=== PATIENT | female | born 1980 | race African-American/Black ===

== ENCOUNTER 2017-12-26 22:44 | Observation (INO) | payer BC ==
[2017-12-27] MEDS ORDERED: Ibuprofen 800 MG TAB ONE (01:20)
[2017-12-27] MEDS ORDERED: Enoxaparin Sodium 100 MG/ML SYRINGE ONE (02:48)
[2017-12-27] MEDS ORDERED: Enoxaparin Sodium 30 MG/0.3 ML SYRINGE ONE ×2 (02:48→02:51)
[2017-12-27] MEDS ORDERED: Bisacodyl 5 MG TAB PO PRN (05:00)
[2017-12-27] MEDS ORDERED: traMADol HCl 50 MG TAB PO PRN (05:00)
[2017-12-27] MEDS ORDERED: Loratadine 10 MG TAB PO PRN (05:00)
[2017-12-27] MEDS ORDERED: Benzonatate 100 MG CAP PO PRN (05:00)
[2017-12-27] MEDS ORDERED: Senokot 8.6 MG TAB PO PRN (05:00)
[2017-12-27] MEDS ORDERED: hydrALAZINE 20 MG/ML VIAL SLOW IVP PRN (05:00)
[2017-12-27] MEDS ORDERED: cloNIDine 0.1 MG TAB PO PRN (05:00)
[2017-12-27] MEDS ORDERED: Calcium Carbonate 500 MG ChewTAB PO PRN (05:00)
[2017-12-27] MEDS ORDERED: Diabetic Tussin 200 MG/10 ML UDCUP PO PRN (05:00)
[2017-12-27] MEDS ORDERED: Nitroglycerin 0.4 MG TAB (25 Tab Bottle) SL PRN (05:00)
[2017-12-27] MEDS ORDERED: Ondansetron HCl/PF 4 MG/2 ML Vial IVP PRN (05:00)
[2017-12-27] MEDS ORDERED: Mag-Al 1200 mg/1200 mg/30 ML UDCUP PO PRN (05:00)
[2017-12-27 05:09] VITALS: BMI 37.1
[2017-12-27 05:10] LABS: Troponin I Less than 0.010 ng/mL (< 0.028)
[2017-12-27 05:41] LABS: BHCG - Serum Negative (NEGATIVE); Pregs Control Background? CLEAR/WHITE (CLR/WHITE); Pregs Control Bar Appear? YES (CONTROL BAR)
--- NOTE | 2017-12-27 05:54 | HP ---
DATE OF ADMISSION: 12/27/2017 CHIEF COMPLAINT: Chest pain. HISTORY OF PRESENT ILLNESS: Ms. Lamb is a pleasant 37-year-old female without any significant pas t medical history who presented to the emergency room with the above-mentioned complaint. History is mainly obtained by the patient herself and electronical medical records have been reviewed. According to Ms. Lamb, she started to have chest pain while she was resting at 2:30 yesterday afte rnoon. She describes it as a stabbing sensation located in the center of the sternum and a little bi t to the left. It was not associated with any diaphoresis or shortness of breath. She did have one episode of vomiting. The pain was nonradiating and was 10/10 in intensity. She cannot think of any exacerbating or relieving factors. It spontaneously went away in the ER. She initially presented to outside ER in [place], where she was given aspirin. She was found to have an elevated D-dimer, for which a CT angio was performed, but unfortunately it w as a suboptimal study. It did rule out pulmonary embolism in the big blood vessels, but small vessel s were not opacified well enough. She was admitted to our facility for further workup and to rule ou t PE. Her cardiac enzymes were unremarkable. She did have leukocytosis with the left shift and in [facility] emergency room, she was found to have fever of 103.1. Chest x-ray done in the [place] [facility] was negative for any infiltrate. Urinalysis was unremarkable. After discussion with the admitting ER physician in our facility: It was decided that she will recei ve 1 dose of therapeutic Lovenox until pulmonary embolism can be safely ruled out. She is to undergo a lower extremity ultrasound to rule out DVT for completeness of evaluation. She is now being admit viktoria for further workup for her chest pain. She does report that it does hurt whenever she moves. PAST MEDICAL HISTORY: Sickle cell trait. PAST SURGICAL HISTORY: Hysterectomy. PSYCHIATRIC HISTORY: No anxiety, no depression. 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 No history of drug, tobacco, or alcohol abuse. FAMILY HISTORY: Significant for hypertension and dyslipidemia, and some sort of heart disease and di abetes in her father. REVIEW OF SYSTEMS: A 12-point review of systems is done and is negative except for those mentioned i n the history and physical. The following complete review of systems was negative, unless otherwise mentioned in the HPI or below: Constitutional: Weight loss or gain, ability to conduct usual activi ties. Skin: Rash, itching. Eyes: Double vision, pain. ENT/Mouth: Nose bleeding, neck stiffness, pain, tenderness. Cardiovascular: Palpitations, dyspnea on exertion, orthopnea. Respiratory: Vida rtness of breath, wheezing, cough, hemoptysis, fever or night sweats. Gastrointestinal: Poor appeti te, abdominal pain, heartburn, nausea, vomiting, constipation, or diarrhea. Genitourinary: Urgency, frequency, dysuria, nocturia. Musculoskeletal: Pain, swelling. Neurologic/Psychiatric: Anxiety, depression. Allergy/Immunologic: Skin rash, bleeding tendency. LABORATORY DATA: CBC shows WBCs 12.7 with 90% neutrophils, hemoglobin 11.1, hematocrit 32.6. D-dime r 1.18. Serum chemistry shows blood sugar of 109, otherwise unremarkable. Total bilirubin is elevat ed to 2.1 with normal LFTs. Troponin less than 0.010. Urinalysis unremarkable. Chest x-ray by elise brenner has no evidence to suggest pulmonary edema, effusion, or infiltrate. CT angio was limited stud y. No overt pulmonary embolism seen. Splenomegaly and probable mild hepatomegaly seen. PHYSICAL EXAMINATION: VITAL SIGNS: Upon presentation, blood pressure 110/66, pulse of 103, respirations 16, saturating 99% on room air, temperature 103.1. GENERAL: No acute distress, awake, alert, oriented x3. She is lying comfortably in bed. HEENT: Mucous membrane is moist and pink. No oropharyngeal exudate or erythema. Head is normocepha lic, atraumatic. Pupils equal, reactive to light and accommodation. Extraocular movement intact. NECK: Supple without any lymphadenopathy, JVD, or bruit. CHEST: Clear to auscultation without any wheezing, rales, or rhonchi. She is somewhat tender to pal pation over the sternum and the left anterior chest. ABDOMEN: Obese, soft, nontender, nondistended with positive bowel sounds. She has no right upper qu adrant tenderness. EXTREMITIES: Free of any cyanosis, clubbing, or edema. NEUROLOGIC: Nonfocal. SKIN: Free of any rashes or bruises. I feel warm and dry to touch. IMPRESSION AND PLAN: 1. Chest pain. The etiology is unclear. She does have risk factors for pulmonary embolism. She is mostly sedentary at her job and at her home. At this time, she has received 1 dose of Lovenox in th e emergency room. Her CT angio was suboptimal, but did not show any pulmonary embolism. We will obt ain lower extremity ultrasound to rule out any deep venous thrombosis as well. If the lower extremit y ultrasound is negative: We will start the workup for cardiac causes of chest pain and obtain a nuc lear medicine stress test given her family history. Also given the fact that she has tenderness to p alpation: Musculoskeletal cause cannot be ruled out. We will continue to trend serial cardiac enzym es, provide her with a daily aspirin and monitor her on telemetry unit. 2. Elevated bilirubin, given the patient's presentation with fever, leukocytosis, and elevated bilir ubin: We will get a right upper quadrant ultrasound to rule out cholecystitis. No indication for an tibiotic at this time until necessary. 3. Systemic inflammatory response syndrome. The patient has fever and leukocytosis with left shift without a clear source of infection. A workup was initiated above. We will start her on gentle IV f luid hydration. Blood cultures have been obtained and we will follow the results as well as the resu lts of the right upper quadrant ultrasound. 4. Morbid opacity. 5. Obtain a stat serum test. 6. Repeat labs in the morning and deep venous thrombosis and gastrointestinal prophylaxes with seque ntial compression devices and Pepcid in case this is a symptom of gastroesophageal reflux disease. DISPOSITION: Ms. Lamb is currently being admitted for chest pain workup. Further management will depend upon her clinical course. We recommend getting nuclear medicine stress test if the workup fo r pulmonary embolism/DVT and cholecystitis is negative as a possible reason for her presentation with chest pain.
[2017-12-27 05:57] LABS: Anion Gap 10 mmol/L (10-20); BUN (Urea Nitrogen) 11 mg/dL (7.0-18.7); Calc. Creatinine Clearance 174 mL/min (70-130); Calcium 7.5 mg/dL (7.8-10.44); Carbon Dioxide 21 mmol/L (22-29); Chloride 108 mmol/L (98-107); Estimated GFR-MDRD Greater than 90; Glucose 90 mg/dL (70-105); Potassium 3.4 mmol/L (3.5-5.1); Sodium 136 mmol/L (136-145)
[2017-12-27 06:07] LABS: Troponin I Less than 0.010 ng/mL (< 0.028)
[2017-12-27] MEDS: Sodium Chloride 0.9% 1,000 ML IV SCH ×3 (06:08→22:58)
[2017-12-27 06:45] LABS: #Lymphocytes 0.8 thou/uL (1.20-3.40); #Monocytes 0.3 thou/uL (0.11-0.59); #Neutrophils 5.2 thou/uL (1.40-6.50); %Basophils 0.2 % (0.0-1.0); %Eosinophils 0.2 % (0.0-10.0); %Monocytes 5.1 % (0.0-10.0); %Neutrophils 81.4 % (42.0-75.0); Hemoglobin 9.1 g/dL (12.0-16.0); Mean Corpuscular HGB CONC 34.8 g/dL (32.0-36.0); Mean Corpuscular Hemoglobin 26.9 pg (27.0-31.0); Mean Corpuscular Volume 77.5 fl (81.0-99.0); Mean Platelet Volume 10.8 fL (7.4-10.4); Platelet Count 102 thou/uL (130-400); Red Blood Cell (RBC) Count 3.37 mill/uL (4.20-5.40); White Blood Cell (WBC) Count 6.4 thou/uL (4.8-10.8)
[2017-12-27 07:33] LABS: MDiff Complete? YES; Microcytosis SLIGHT = 6-15 cells (100X) (0-5/hpf); PLT Morphology Comment Appears Decreased; Polychromasia MODERATE = 3-4 cells (100X) (0-2/hpf)
--- NOTE | 2017-12-27 08:56 | ULT ---
RIGHT UPPER QUADRANT ULTRASOUND: DATE: 12/27/17. HISTORY: Fever, elevated bilirubin. FINDINGS: Visualized portions of the pancreas, visualized portions of the IVC, liver, and right kidney demonstr ate a normal sonographic appearance. The right kidney measures 11.9 cm in length. There is shadowing extending from the gallbladder fossa. This may be related to a contracted gallbla dder filled with gallbladder calculi. The common duct measures 0.4 cm in diameter which is within no rmal limits. Pulp Beater noted negative sonographic Jenkins's sign. IMPRESSION: Shadowing from the region of the gallbladder fossa which probably represents a contracted gallbladder filled with multiple gallbladder calculi in the absence of a history of prior cholecystectomy. POS: BALTAZAR
--- NOTE | 2017-12-27 08:57 | ULT ---
BILATERAL LOWER EXTREMITY VENOUS DOPPLER WITH SPECTRAL ANALYSIS AND COLOR FLOW EVALUATION: Date: 12/27/17 HISTORY: Shortness of breath and elevated D-Dimer. TECHNIQUE: Velázquez scale, color flow, Doppler evaluation, and spectral analysis of the bilateral lower extremity ve nous structures is performed with 2D imaging. The bilateral lower extremity common femoral, superfici al femoral, popliteal, posterior tibial, most proximal greater saphenous, and profunda femoral veins are imaged. FINDINGS: There is normal lumen compressibility, flow, and augmentation in the visualized deep venous structure s of the bilateral lower extremities. IMPRESSION: No evidence of a deep venous thrombosis involving the visualized deep venous structures of bilateral lower extremities. POS: GISELA
[2017-12-27] MEDS: Aspirin 81 mg Enteric Coated Tablet PO SCH (09:46)
[2017-12-27] MEDS: Famotidine 20 MG TAB PO SCH ×2 (09:46→20:59)
[2017-12-27] MEDS: Acetaminophen 325 MG TAB PO PRN ×3 (09:47→20:59)
--- NOTE | 2017-12-27 15:45 | NM ---
MYOCARDIAL PERFUSION SCAN: A stress-only exam was performed. INDICATION: Chest pain. TECHNIQUE: The patient was stressed according to adenosine protocol. The patient obtained 54% of maximal age-pr edicted heart rate. The left ventricle was imaged with SPECT imaging. CT attenuation images were obtained. FINDINGS: The nonattenuation images show normal activity throughout the left ventricle. Wall motion appears normal. The ejection fraction is recorded at 64%. IMPRESSION: Negative stress-only myocardial perfusion exam. POS: BALTAZAR
--- NOTE | 2017-12-27 19:04 | CON ---
DATE OF CONSULTATION: 12/27/2017 CONSULTS: From Dr. Gallagher, [facility]. REASON FOR CONSULTATION: Cholecystitis. HISTORY OF PRESENT ILLNESS: This is a 37-year-old -[place] female who is overweight, who pre sents with a history of substernal sharp chest pain, admitted to the Hospitalist Service and has been ruled out for any cardiac abnormality. Ultrasound was done due to elevation of her liver function t ests. She was found to have a contracted gallbladder with gallstones, normal common bile duct. Bili zhu just over 2. The other liver function tests were normal. She denies history of jaundice, gall stones, or pancreatitis. Pain described as sharp, substernal. She does have a cheeseburger for dinn er and made it worse. She has some pain in her subscapular region in the right upper back as well. Never had these symptoms before. Previous hysterectomy was her only previous surgery. PAST MEDICAL HISTORY: She denies. PAST SURGICAL HISTORY: Denies. MEDICINES TAKEN DAILY: None. ALLERGIES: PENICILLIN. 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 No history of alcohol or drugs. REVIEW OF SYSTEMS: Otherwise, negative unless described above. FAMILY HISTORY: Noncontributory for GI malignancy or anesthetic related complications. PHYSICAL EXAMINATION: VITAL SIGNS: Pulse 86, respirations 18, temperature 99.2, blood pressure 122/63. GENERAL: Alert, oriented, no acute distress. HEENT: Sclerae are anicteric. Oropharynx clear. NECK: No lymphadenopathy. CHEST: Clear. HEART: Regular rate and rhythm. ABDOMEN: Soft, tender in the right upper quadrant with localized guarding, but no rebound, no abdomi nal or inguinal hernias. EXTREMITIES: No ischemia or edema to extremities. LABORATORY DATA: On admission, her bilirubin was 2, AST, ALT are 17 and 16, lipase was normal at 25. She is slightly anemic with a hemoglobin of 9.1, platelet count is 102. White cell count is 6.4. Ultrasound shows contracted gallbladder with gallstones, gallbladder, common duct 0.4 cm. ASSESSMENT: Likely cholecystitis with elevated liver function test. PLAN: Laparoscopic cholecystectomy with intraoperative cholangiogram. Risks, benefits, alternatives discussed. We will do this tomorrow.
[2017-12-27] MEDS: metroNIDAZOLE 500 MG in Premix Bag 1 BAG IVPB SCH (22:55)
[2017-12-28 05:42] LABS: ALT (SGPT) 37 U/L (8-55); AST (SGOT) 31 U/L (5-34); Albumin 3.2 g/dL (3.5-5.0); Alkaline Phosphatase 55 U/L (40-150); Anion Gap 9 mmol/L (10-20); BUN (Urea Nitrogen) 7 mg/dL (7.0-18.7); Bilirubin, Total 1.7 mg/dL (0.2-1.2); Calc. Creatinine Clearance 204 mL/min (70-130); Calcium 7.4 mg/dL (7.8-10.44); Carbon Dioxide 21 mmol/L (22-29); Chloride 110 mmol/L (98-107); Estimated GFR-MDRD Greater than 90; Globulin 2.1 g/dL (2.4-3.5); Glucose 92 mg/dL (70-105); Lipase 28 U/L (8-78); Potassium 3.4 mmol/L (3.5-5.1); Protein, Total 5.3 g/dL (6.0-8.3); Sodium 137 mmol/L (136-145)
[2017-12-28 05:48] LABS: #Eosinphils 0.1 thou/uL (0.0-0.7); #Lymphocytes 1.1 thou/uL (1.20-3.40); #Monocytes 0.4 thou/uL (0.11-0.59); #Neutrophils 3.5 thou/uL (1.40-6.50); %Eosinophils 1.1 % (0.0-10.0); %Lymphocytes 21.2 % (21.0-51.0); %Monocytes 7.6 % (0.0-10.0); %Neutrophils 70.1 % (42.0-75.0); Anisocytosis SLIGHT = 6-15 cells (100X) (0-5/hpf); Hemoglobin 7.8 g/dL (12.0-16.0); MDiff Complete? YES; Mean Corpuscular HGB CONC 35.7 g/dL (32.0-36.0); Mean Corpuscular Hemoglobin 27.5 pg (27.0-31.0); Mean Platelet Volume 10.7 fL (7.4-10.4); Microcytosis SLIGHT = 6-15 cells (100X) (0-5/hpf); PLT Morphology Comment Appears Decreased; Platelet Count 99 thou/uL (130-400); RBC Distribution Width 21.2 % (11.5-14.5); Red Blood Cell (RBC) Count 2.85 mill/uL (4.20-5.40); White Blood Cell (WBC) Count 4.9 thou/uL (4.8-10.8)
[2017-12-28] MEDS: metroNIDAZOLE 500 MG in Premix Bag 1 BAG IVPB SCH ×2 (06:24→14:20)
[2017-12-28] MEDS: Aspirin 81 mg Enteric Coated Tablet PO SCH (08:29)
[2017-12-28] MEDS: Famotidine 20 MG TAB PO SCH ×2 (08:29→23:01)
[2017-12-28] MEDS ORDERED: Bupivacaine/Epinephrine 0.25% 30 ML VIAL ONE (10:00)
[2017-12-28] MEDS ORDERED: Iothalamate Meglumine 60% 50 ML VIAL FS ONE (10:13)
[2017-12-28] MEDS ORDERED: Midazolam HCl 2 mg/2 ml Vial ONE (10:36)
[2017-12-28] MEDS ORDERED: Famotidine/PF 20 mg/2ml Vial ONE (10:36)
[2017-12-28] MEDS ORDERED: Fentanyl 100 MCG/2 ML VIAL ONE ×2 (10:36→11:43)
[2017-12-28] MEDS ORDERED: SUGAMMADEX SODIUM 200 MG/2 ML VIAL ONE (11:31)
[2017-12-28] MEDS ORDERED: Promethazine HCl 25 MG/ML VIAL ONE (11:43)
[2017-12-28] MEDS ORDERED: Promethazine HCl 25 MG/ML VIAL IM PRN (12:16)
[2017-12-28] MEDS ORDERED: Promethazine HCl 25 MG/ML VIAL SLOW IVP PRN (12:16)
[2017-12-28] MEDS ORDERED: Ondansetron HCl/PF 4 MG/2 ML Vial IVP PRN (12:16)
--- NOTE | 2017-12-28 12:40 | RAD ---
INTRAOPERATIVE CHOLANGIOGRAM: HISTORY: Laparoscopic cholecystogram. FINDINGS: A single intraoperative cholangiogram is obtained. Catheterization and injection of the cystic duct is performed. There is contrast seen in the common bile duct and in the common hepatic ducts. Some contrast is seen extending into the duodenum. There does appear to be a filling defect in one of the right intrahepatic bile ducts. No definite evidence of a more distal lesion is seen. IMPRESSION: 1. Possible right hepatic duct stone or filling defect. 2. No other significant abnormalities seen. 3. No definite evidence of extensive biliary dilatation seen. POS: BALTAZAR
[2017-12-28] MEDS ORDERED: Morphine 4 MG/ML Carpuject IVP PRN (12:58)
[2017-12-28] MEDS ORDERED: HYDROcodone/Acetaminophen 10/325 mg Tablet PO PRN (12:58)
[2017-12-28] MEDS ORDERED: Morphine 4 MG/ML VIAL IV PRN ×2 (13:10→13:11)
--- NOTE | 2017-12-28 13:37 | OP ---
DATE OF PROCEDURE: 12/28/2017 PREOPERATIVE DIAGNOSES: Symptomatic gallstones with elevated liver function test. POSTOPERATIVE DIAGNOSES: Symptomatic gallstones with elevated liver function test. PROCEDURE: Laparoscopic cholecystectomy with intraoperative cholangiogram. SURGEON: [place] Grover M.D. ANESTHESIA: General. ESTIMATED BLOOD LOSS: Minimal. COMPLICATIONS: None. SPECIMEN: Stomach. FINDINGS: Normal cholangiogram. TECHNIQUE: The patient was taken to the operating room and placed supine on the table. After genera l anesthetic was obtained, the abdomen was prepped and draped in a sterile fashion. A straight incis ion made above the umbilicus. Cautery was used to dissect down to and score the fascia. Abdominal c avity entered bluntly using a Bhargavi clamp. Holding stitch of PDS placed on each side of the fascia. Aris trocar was placed. High-flow pneumoperitoneum was obtained. An upper midline 5-mm port and two right upper quadrant 5-mm ports were placed under direct visualization. The gallbladder was retr acted from the gallbladder fossa. Peritoneum was opened anteriorly and posteriorly. The critical vi ew triangle was seen showing only the cystic duct and cystic artery branching from medial to lateral. There were no other branching structures. A clip was placed high on the cystic duct. A small duct otomy was made just proximal to that. A cholangiocatheter was brought in through a separate stab inc ision and placed into the cystic duct and a cholangiogram was performed, which shows good contrast fl ow into the duodenum without obstruction. There was good filling of the right and left hepatic duct system. Cholangiocatheter was removed. Two clips were placed proximal on the cystic duct was cut us ing laparoscopic scissors. Cystic artery was taken using two clips proximally, one clip distally, an d cut using laparoscopic scissors. Cautery was used to dissect the gallbladder out of the gallbladde r fossa. The gallbladder was placed in an Endo catch bag and brought out through the Aris. All po rt sites were infiltrated using local anesthetic. No bleeding in the liver bed. All ports were rafael mima under camera visualization. Pneumoperitoneum was let down. PDS was used to close the fascial de fect below the umbilicus. All incisions were irrigated and closed using 4-0 Monocryl and Dermabond. The patient was en route to recovery in stable condition. All instrument counts, needle counts, and lap counts were correct.
[2017-12-28] MEDS ORDERED: Lidocaine 1% PF 5 ML VIAL ONE (14:12)
[2017-12-28] MEDS ORDERED: PHENYLEPHRINE-NS 100 MCG/ML 10 ML SYRINGE ONE (14:12)
[2017-12-28] MEDS ORDERED: Dexamethasone 20 MG/5 ML VIAL ONE (14:12)
[2017-12-28] MEDS ORDERED: Glycopyrrolate 0.2 MG/ML 5 ML SYRINGE ONE (14:12)
[2017-12-28] MEDS ORDERED: PROPOFOL 200 MG/20 ML VIAL ONE (14:12)
[2017-12-28] MEDS: HYDROcodone/Acetaminophen 10/325 mg Tablet PO PRN ×3 (14:19→23:00)
--- NOTE | 2017-12-28 15:44 | PDOC.PN ---
- Subjective Encounter Start Date: 12/28/17 Encounter Start Time: 07:20 Pt seen for followup re: abdo pain. Denies chest pain, nausea or vomiting. - Objective MAR Reviewed: Yes Vital Signs & Weight: Vital Signs (12 hours) Temp Pulse Resp BP BP Pulse Ox 12/28/17 15:35 98.3 F 16 97/57 L 94 L 12/28/17 13:20 98.1 F 74 12 104/51 L 94 L 12/28/17 08:15 99.3 F 89 12 12/28/17 07:30 99.3 F 89 12 107/50 L 99 12/28/17 04:00 99.1 F 87 16 112/51 L 98 Weight Weight 237 lb 12.8 oz Most Recent Monitor Data Heart Rate from ECG 95 I&O: 12/27/17 12/28/17 12/29/17 06:59 06:59 06:59 Intake Total 480 2966 100 Balance 480 2966 100 Result Diagrams: 12/28/17 04:43 12/28/17 04:43 EKG Reviewed by me: Yes (Tele: NSR) Phys Exam - Physical Examination Obese HEENT: moist MMs, oral pharynx no lesions, 2+ tonsils Icterus Neck: no nodes, no JVD, supple, full ROM Respiratory: no wheezing, no rales, no rhonchi, clear to auscultation bilateral Cardiovascular: RRR, no rub S1, S2 Gastrointestinal: soft, positive bowel sounds RUQ tenderness, no guarding or rigidity Neurological: moves all 4 limbs Psychiatric: normal affect, A&O x 3 Dx/Plan (1) Abdominal pain Code(s): R10.9 - UNSPECIFIED ABDOMINAL PAIN Status: Acute Comment: likely due to cholecystitis (2) Hypokalemia Code(s): E87.6 - HYPOKALEMIA Status: Acute Comment: replace potassium (3) Cholecystitis, acute Code(s): K81.0 - ACUTE CHOLECYSTITIS Status: Acute Comment: for surgery today (4) Sickle cell trait Code(s): D57.3 - SICKLE-CELL TRAIT Status: Chronic Comment: stable (5) Chest pain Code(s): R07.9 - CHEST PAIN, UNSPECIFIED Status: Resolved Comment: normal stress test - Plan * . Review of Systems - Review of Systems Constitutional: negative: fever, chills, sweats, weakness, malaise Respiratory: negative: Cough, Shortness of Breath, SOB with Excertion, Pleuritic Pain, Wheezing Cardiovascular: negative: chest pain, palpitations, orthopnea, paroxysmal nocturnal dyspnea, edema, light headedness Gastrointestinal: Abdominal Pain. negative: Nausea, Vomiting, Diarrhea, Constipation, Melena, Hematochezia Genitourinary: negative: Dysuria, Frequency, Incontinence, Hematuria, Retention Skin: negative: Rash, Lesions, Grady, Bruising - Medications/Allergies Allergies/Adverse Reactions: Allergies Allergy/AdvReac Type Severity Reaction Status Date / Time Penicillins Allergy Verified 12/27/17 05:08 Medications: Current Medications Acetaminophen (Tylenol) 650 mg PO Q4H PRN PRN Reason: Headache/Fever or Pain Last Admin: 12/27/17 20:59 Dose: 650 mg Hydrocodone Bitart/Acetaminophen (Ulmer 10/325) 1 tab PO Q4H PRN PRN Reason: Mild Pain (1-3) Hydrocodone Bitart/Acetaminophen (Ulmer 10/325) 2 tab PO Q4H PRN PRN Reason: Moderate Pain (4-6) Last Admin: 12/28/17 14:19 Dose: 2 tab Al Hydroxide/Mg Hydroxide (Maalox) 30 ml PO Q6H PRN PRN Reason: Heartburn or Indigestion Aspirin (Ecotrin) 81 mg PO DAILY [facility] Last Admin: 12/28/17 08:29 Dose: 81 mg Benzonatate (Tessalon) 100 mg PO Q4H PRN PRN Reason: Cough Bisacodyl (Dulcolax) 10 mg PO DAILYPRN PRN PRN Reason: Constipation Calcium Carbonate (Tums) 1,000 mg PO Q4H PRN PRN Reason: Heartburn or Indigestion Clonidine (Catapres) 0.1 mg PO Q4H PRN PRN Reason: Systolic BP > 160 Famotidine (Pepcid) 20 mg PO BID [facility] Last Admin: 12/28/17 08:29 Dose: 20 mg Guaifenesin (Robitussin Sf) 200 mg PO Q4H PRN PRN Reason: Cough Hydralazine HCl (Apresoline) 10 mg SLOW IVP Q4H PRN PRN Reason: Systolic BP > 170 Sodium Chloride (Normal Saline 0.9%) 1,000 mls @ 75 mls/hr IV .[id number] [facility] Last Admin: 12/27/17 22:58 Dose: 1,000 mls Ciprofloxacin/Dextrose 400 mg/ (Device) 200 mls @ 200 mls/hr IVPB Q12HR [facility] Last Admin: 12/28/17 08:29 Dose: 200 mls Metronidazole 500 mg/ Device 100 mls @ 100 mls/hr IVPB Q8HR [facility] Last Admin: 12/28/17 14:20 Dose: 100 mls Loratadine (Claritin) 10 mg PO DAILYPRN PRN PRN Reason: Sinus Symptoms Morphine Sulfate (Morphine) 2 mg IV Q4H PRN PRN Reason: Mild-Moderate Pain (1-5) Morphine Sulfate (Morphine) 4 mg IV Q4H PRN PRN Reason: Moderate to Severe Pain (6-10) Nitroglycerin (Nitrostat) 0.4 mg SL Q5MIN PRN PRN Reason: Chest Pain Ondansetron HCl (Zofran) 4 mg IVP Q6H PRN PRN Reason: Nausea/Vomiting Potassium Chloride (K-Dur) 40 meq PO ONE [facility] Senna (Senokot) 2 tab PO HSPRN PRN PRN Reason: Constipation Sodium Chloride (Flush - Normal Saline) 10 ml IVF Q12HR [facility] Sodium Chloride (Flush - Normal Saline) 10 ml IVF PRN PRN PRN Reason: Saline Flush Tramadol HCl (Ultram) 50 mg PO Q4H PRN PRN Reason: Moderate Pain (4-6)
[2017-12-28] MEDS ORDERED: Potassium Chloride 20 MEQ TAB PO SCH (16:00)
[2017-12-29] MEDS: metroNIDAZOLE 500 MG in Premix Bag 1 BAG IVPB SCH ×2 (00:11→06:16)
[2017-12-29] MEDS: Sodium Chloride 0.9% 1,000 ML IV SCH ×2 (01:36→13:11)
[2017-12-29] MEDS: HYDROcodone/Acetaminophen 10/325 mg Tablet PO PRN ×3 (03:13→13:08)
[2017-12-29] MEDS: Aspirin 81 mg Enteric Coated Tablet PO SCH (08:31)
[2017-12-29] MEDS: Famotidine 20 MG TAB PO SCH (08:32)
[2017-12-29] MEDS ORDERED: Ketorolac Tromethamine 30 MG/ML VIAL IVP SCH ×2 (09:15→12:00)
[2017-12-29 09:18] LABS: #Lymphocytes 1.7 thou/uL (1.20-3.40); #Monocytes 0.8 thou/uL (0.11-0.59); #Neutrophils 10.2 thou/uL (1.40-6.50); %Basophils 0.3 % (0.0-1.0); %Eosinophils 0.3 % (0.0-10.0); %Lymphocytes 13.3 % (21.0-51.0); %Monocytes 6.1 % (0.0-10.0); Hemoglobin 11.2 g/dL (12.0-16.0); Mean Corpuscular HGB CONC 34.5 g/dL (32.0-36.0); Mean Corpuscular Hemoglobin 26.8 pg (27.0-31.0); Mean Corpuscular Volume 77.8 fl (81.0-99.0); Mean Platelet Volume 9.3 fL (7.4-10.4); Platelet Count 107 thou/uL (130-400); RBC Distribution Width 19.2 % (11.5-14.5); Red Blood Cell (RBC) Count 4.19 mill/uL (4.20-5.40); White Blood Cell (WBC) Count 12.8 thou/uL (4.8-10.8)
[2017-12-29 09:24] LABS: Anion Gap 8 mmol/L (10-20); BUN (Urea Nitrogen) 6 mg/dL (7.0-18.7); Calc. Creatinine Clearance 187 mL/min (70-130); Calcium 8.2 mg/dL (7.8-10.44); Carbon Dioxide 23 mmol/L (22-29); Chloride 108 mmol/L (98-107); Estimated GFR-MDRD Greater than 90; Glucose 115 mg/dL (70-105); Potassium 3.5 mmol/L (3.5-5.1); Sodium 135 mmol/L (136-145)
[2017-12-29 12:14] VITALS: BP 109/58; TEMP 99.2
--- NOTE | 2017-12-29 14:43 | PRG ---
DATE OF SERVICE: 12/29/2017 Postop day 1 laparoscopic cholecystectomy. Ms. Lamb is complaining of pain in her umbilicus. She had 2 units of blood last night for chronic anemia. Today, she is, otherwise, doing well. ASSESSMENT: Postoperative day #1 laparoscopic cholecystectomy with cholangiogram negative. PLAN: Discharge home. Follow up with me in 2 weeks. Prescriptions and work release on chart.
--- NOTE | 2017-12-30 01:07 | DIS ---
DATE OF ADMISSION: 12/27/2017 DATE OF DISCHARGE: 12/29/2017 PRIMARY CARE PROVIDER: Lisa Dhillon PA-C DISCHARGE DIAGNOSES: 1. Chest pain. 2. Cholecystitis. CONDITION OF PATIENT ON THE DAY OF DISCHARGE: Stable. I assessed Ms. Lamb on the day of discharg e. She denies any chest pain or shortness of breath. Vital signs are stable. S1 and S2 are heard, regular. Lungs are clear to auscultation bilaterally. DISCHARGE MEDICATIONS: [place] and Zofran as prescribed by General Surgery Service, Augmentin 875/125 mg 2 times a day for 5 days. CONSULTATIONS DURING THIS HOSPITALIZATION: General surgery, Dr. [place]. HOSPITAL COURSE: Ms. Lamb is a pleasant 37-year-old lady who was admitted to [facility] on 12/27/2017 for chest pain. She also had right upper quadrant tenderness. Abdominal ultrasound showed probable contracted gallbladder filled with multiple gallbladder calculi. In terms of chest pain, she had CT angiogram of the chest, which was a low sensitivity study showing no gross emboli. There were no acute pulmonary findings. She had splenomegaly and probably mild hep atomegaly. She also had lower extremity Dopplers, which did not show DVT. She had a nuclear stress test, which was a negative stress only myocardial perfusion exam. Ejection fraction was recorded at 64%. She was seen by General Surgery Service for abdominal pain. On 12/28/2017, she underwent laparoscopi c cholecystectomy with intraoperative cholangiogram. The radiologist reports that there was a small filling defect, general surgeon felt that this was an artifact and he did not see any filling defects . She had fever at the time of admission and she was started on antibiotics. I am discharging her home on Augmentin. General Surgery Service is also given her prescriptions for [place] and Zofran. On the day of discharge, she has white count of 12,800, hemoglobin 11.2, platelet count 107,000. She did have a drop in her hemoglobin to 7.8 on 12/28/2017, down from 9.1 on 12/27/2017 and 11.1 on 12/14. She received 2 units of packed RBCs with improvement of her hemoglobin to 11.2. On the day of discharge, she has sodium 135, potassium 3.5, and creatinine 0.70. Many thanks for allowing me to participate in your patient's care. Please feel free to contact me wi th any questions or concerns. DISCHARGE DESTINATION: Home.
--- NOTE | 2018-01-01 16:17 | EKG ---
Test Reason : Blood Pressure : / mmHG Vent. Rate : 105 BPM Atrial Rate : 105 BPM P-R Int : 138 ms QRS Dur : 070 ms QT Int : 340 ms P-R-T Axes : 027 029 021 degrees QTc Int : 449 ms Sinus tachycardia Otherwise normal ECG Confirmed by TUSHAR MULLIGAN, MELVIN ([id number]), editor producer JOSE PRITCHETT ([id number]) on 01/01/2018 4:17:23 PM Referred By: Confirmed By:MELVIN FINLEY MD
== END 2017-12-29 16:10 | disposition home or self-care (01) ==
LOC: ERS 22:44 → 2SW 12-27 02:45
PROVIDERS: ADMIT Internal Medicine; ATTEND Internal Medicine
PROC: 0FT44ZZ Resection of Gallbladder, Percutaneous Endoscopic Approach (ICD-10-PCS; principal; 2017-12-28)
PROC: BF101ZZ Fluoroscopy of Bile Ducts using Low Osmolar Contrast (ICD-10-PCS; 2017-12-28)
DX: K80.10 Calculus of gallbladder with chronic cholecystitis without obstruction (principal); R07.9 Chest pain, unspecified; D57.3 Sickle-cell trait; R65.10 Systemic inflammatory response syndrome (SIRS) of non-infectious origin without acute organ dysfunction; E87.6 Hypokalemia; R79.1 Abnormal coagulation profile; E66.3 Overweight; Z68.37 Body mass index [BMI] 37.0-37.9, adult; Z88.0 Allergy status to penicillin
CPT/HCPCS: 36415; 36430; 47532; 76705; 78452; 80048; 80053; 83605; 83690; 84443; 84484; 84703; 85025; 86850; 86900; 86901; 86922; 87040; 87804; 88304; 93005; 93017; 93970; 96361; 96365; 96366; 96367; 96372; 96374; 96375; A4216; A9500; G0378; J0153; J0744; J1100; J1650; J2001; J2250; J2405; J2550; J2704; J3010; P9016; Q9961; S0028

== ENCOUNTER 2017-12-30 21:55 | Inpatient (IN) | payer BC ==
[~2017-12-30 21:55] MED LIST: ISOVUE-370 76%-LOCM 1 ML ONE
[2017-12-30] MEDS ORDERED: Ibuprofen 800 MG TAB ONE (22:09)
[2017-12-30] MEDS ORDERED: Meropenem 1 GM in Sodium Chloride 0.9% 100 ML IVPB SCH (22:30)
[2017-12-30 22:53] LABS: #Lymphocytes 1.4 thou/uL (1.20-3.40); #Monocytes 0.9 thou/uL (0.11-0.59); #Neutrophils 10.1 thou/uL (1.40-6.50); %Eosinophils 0.1 % (0.0-10.0); %Lymphocytes 10.9 % (21.0-51.0); %Neutrophils 81.9 % (42.0-75.0); Hemoglobin 10.6 g/dL (12.0-16.0); Mean Corpuscular HGB CONC 34.7 g/dL (32.0-36.0); Mean Corpuscular Volume 77.8 fl (81.0-99.0); Mean Platelet Volume 8.3 fL (7.4-10.4); Platelet Count 116 thou/uL (130-400); RBC Distribution Width 19.8 % (11.5-14.5); Red Blood Cell (RBC) Count 3.93 mill/uL (4.20-5.40); White Blood Cell (WBC) Count 12.3 thou/uL (4.8-10.8)
[2017-12-30 23:15] LABS: ALT (SGPT) 29 U/L (8-55); AST (SGOT) 35 U/L (5-34); Albumin 3.1 g/dL (3.5-5.0); Alkaline Phosphatase 78 U/L (40-150); Anion Gap 10 mmol/L (10-20); BUN (Urea Nitrogen) 8 mg/dL (7.0-18.7); Bilirubin, Total 9.2 mg/dL (0.2-1.2); Calc. Creatinine Clearance 0 mL/min (70-130); Calcium 7.9 mg/dL (7.8-10.44); Carbon Dioxide 22 mmol/L (22-29); Chloride 105 mmol/L (98-107); Estimated GFR-MDRD Greater than 90; Globulin 2.4 g/dL (2.4-3.5); Glucose 117 mg/dL (70-105); Potassium 3.9 mmol/L (3.5-5.1); Protein, Total 5.5 g/dL (6.0-8.3); Sodium 133 mmol/L (136-145)
[2017-12-30] MEDS ORDERED: Morphine 4 MG/ML VIAL ONE (23:28)
--- NOTE | 2017-12-30 23:37 | CT ---
CT ABDOMEN AND PELVIS WITH CONTRAST 12/30/17 HISTORY: Abdominal pain. COMPARISON: None. FINDINGS: There is extensive atelectasis in the lung bases. There is marked splenomegaly of the peripheral tria ngular shaped hypodensity which may reflect prior infarct. Evidence of recent cholecystectomy. Small volume gas. Moderate volume fluid in the pelvis. There appears to be a prior hysterectomy with elevation of both ovaries. Hypodensity inferior pole left kidney. Aortoiliac contour is normal. Appendix is visualized and is normal. IMPRESSION: 1. Large volume fluid within the abdomen and pelvis greater than would be expected postoperative ly, A nuclear medicine HIDA scan may be beneficial to evaluate for a leak. 2. Postoperative intraperitoneal gas. 3. Splenomegaly with peripheral hypodense triangular shaped hypodensity which may reflect infarc tions. POS: BALTAZAR
[2017-12-31 02:09] VITALS: BMI 39.3
[2017-12-31] MEDS ORDERED: Morphine 4 MG/ML VIAL SLOW IVP PRN (02:16)
[2017-12-31] MEDS ORDERED: Ondansetron ODT 4 MG TAB SL PRN (02:17)
[2017-12-31] MEDS ORDERED: Ondansetron HCl/PF 4 MG/2 ML Vial IVP PRN ×3 (02:17→16:31)
[2017-12-31] MEDS ORDERED: Morphine 5 MG/ML SYRINGE SLOW IVP PRN ×2 (02:25→03:33)
[2017-12-31] MEDS: Dextrose 5 % And 0.9 % NaCl 1,000 ML IV SCH ×4 (02:47→21:50)
[2017-12-31] MEDS ORDERED: Sodium Chloride 0.9% 10 ML ONE (06:41)
[2017-12-31] MEDS: MEROPENEM 1 GM/50 ML 1 GM in Premix Bag 1 BAG IVPB SCH ×4 (07:02→22:16)
[2017-12-31] MEDS ORDERED: Sodium Chloride 0.9% 1,000 ML IV SCH (08:00)
--- NOTE | 2017-12-31 08:19 | CON ---
DATE OF CONSULTATION: 12/31/2017 CHIEF COMPLAINT: Jaundice. HISTORY OF PRESENT ILLNESS: This is a 37-year-old female who 3 days ago underwent a laparoscopic cho lecystectomy with intraoperative cholangiogram by me. Her preop bilirubin was 1.7. She was initiall y admitted that admission for atypical chest pain and was found to have gallstones and likely cholecy stitis. She underwent cholangiogram at the time of surgery and there was good contrast flow into the duodenum, right and left hepatic duct system without obstruction. Final read by the radiologist of her cholangiogram film revealed questionable filling defect in the right hepatic duct. She was disch arged home the next day. She has a history of chronic anemia and sickle cell trait, [facility] that had worsened associated with tachycardia, fever and jaundice, found to h ave an elevated bilirubin. CT scan showed moderate to significant amount of free fluid in the abdome n. PAST MEDICAL HISTORY, SURGICAL HISTORY, SOCIAL, MEDICINES TAKEN DAILY, ALLERGIES: See previous H&P a nd consults. PHYSICAL EXAMINATION: VITAL SIGNS: Her blood pressure is stable 108/62, her pulse is 128, respirations 24, temperature 99. 3, but she was reportedly febrile yesterday at [place]. She is voided multiple times. CHEST: Clear. HEART: Increased rate, regular rhythm. ABDOMEN: Soft, it is diffusely tender with guarding. Incisions are healing well without infection. LABORATORY: White cell count is 12, hemoglobin 10, platelet count is 116. Sodium 133, potassium 3.9 , creatinine 0.66, bilirubin is 9.2, AST, ALT are 35 and 29. Albumin is 3.1, alkaline phosphatase 78 . ASSESSMENT: Postop jaundice and free fluid in the abdomen after laparoscopic cholecystectomy. Her h istory is significant for sickle cell trait and now splenomegaly as well as complex antibodies, which made her type and cross match difficult from when she had her 2 unit transfusion 2 days ago. PLAN: IV fluids and antibiotics. We will discuss with Dr. Blakely this morning. I would question her. She probably is going to need an ERCP to rule out missed or retained stone, cystic duct leak. I do ubt common duct injury given the fact that she had a cholangiogram at the time of surgery. I wonder if this all could be related to postop cholestasis due to a combination of a general anesthetic and b lood transfusion. We will discuss with Dr. Blakely.
[2017-12-31] MEDS: Famotidine/PF 20 mg/2ml Vial SLOW IVP SCH ×2 (08:26→21:47)
--- NOTE | 2017-12-31 09:32 | HP ---
DATE OF ADMISSION: 12/31/2017 PRIMARY CARE PHYSICIAN: Dr. Rudi Bynum. CHIEF COMPLAINT: Abdominal pain. HISTORY OF PRESENT ILLNESS: This is a 37-year-old -Vietnamese female who presents to [facility] emergency department complaining of increasing abdominal pain over the last 2 4 hours. The patient's history is significant for recent laparoscopic cholecystectomy performed on 0 12/28/2017 for symptomatic cholelithiasis and transaminitis. The patient underwent a cholecystectomy with intraoperative cholangiogram and monitored postoperatively, discharging home on 12/29/2017. The patient was placed on Augmentin and Woodhull and states she was taking the medication as prescribed. T he patient noted increasing abdominal pain and low grade fever with nausea, but no emesis. The patie nt also noticed yellow discoloration of her eyes in the last 24 hours prior to this evaluation. The patient admits to decreased oral intake and decreased appetite. The patient denies any bowel movemen t since discharge. The patient denies any dysuria and did not document the specific fever, but howev er, felt some chills and warms and she may felt some chills. The patient underwent CT of the abdomen and pelvis on 12/30/2017 in the emergency room showing large volume of fluid in the abdomen and pelv is larger than expected postoperatively. The patient was also noted with post-surgical changes consi stent with cholecystectomy. The patient was placed on IV meropenem, morphine sulfate, lactated Ringe r's solution and Motrin. The patient was transferred to the medical floor for further evaluation. PAST MEDICAL HISTORY: 1. Sickle cell trait. 2. Symptomatic cholelithiasis. 3. Splenomegaly secondarily to sickle cell trait. PAST SURGICAL HISTORY: 1. Status post hysterectomy. 2. Status post laparoscopic cholecystectomy with intraoperative cholangiogram. CURRENT MEDICATIONS: 1. Augmentin 875 mg/125 mg 1 tab p.o. b.i.d. 2. Woodhull 5/325 mg 1-2 tabs p.o. q.6 h. p.r.n. pain. 3. Zofran ODT 4 mg p.o. q.6 h. p.r.n. ALLERGIES: PENICILLIN; however, is tolerating AUGMENTIN. FAMILY HISTORY: Positive for hypertension and dyslipidemia. SOCIAL HISTORY: Patient is , accompanied by her in the hospital. Resides in [place], [place]. 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 No current alcohol, tobacco or illicit drug use. Functional of all activities of daily living. REVIEW OF SYSTEMS: The following complete review of systems was negative, unless otherwise mentioned in the HPI or below: Constitutional: Weight loss or gain, abil ity to conduct usual activities. Skin: Rash, itching. Eyes: Double vision, pain. ENT/Mouth: Nos e bleeding, neck stiffness, pain, tenderness. Cardiovascular: Palpitations, dyspnea on exertion, or thopnea. Respiratory: Shortness of breath, wheezing, cough, hemoptysis, fever or night sweats. Gas trointestinal: Poor appetite, abdominal pain, heartburn, nausea, vomiting, constipation, or diarrhea. Genitourinary: Urgency, frequency, dysuria, nocturia. Musculoskeletal: Pain, swelling. Neurologic/Psychiatric: Anxiety, depression. Allergy/Immunologic: Skin rash, bleeding tendency. Otherwise negative except as stated per HPI. PHYSICAL EXAMINATION: VITAL SIGNS: On admission, blood pressure 130/89, pulse 120, respiratory rate 28, temperature 99.1 d egrees Fahrenheit, O2 saturation 100% on room air. GENERAL APPEARANCE: This is a 37-year-old -Vietnamese female, alert and oriented x3, pleasant a nd in mild distress. HEENT: Pupils are equal, round, and reactive to light and accommodation. Extraocular muscles are in tact. No scleral icterus, no conjunctival injection. Nares patent. OP is clear. Oral mucosa dry a ppearing. NECK: Supple, no cervical adenopathy, no thyromegaly, no carotid bruits, no JVD appreciated. Cervic al spine with full active and passive range of motion. No meningeal signs appreciated. CHEST: Lungs are clear to auscultation bilaterally. Diminished breath sounds in the bases. ABDOMEN: Obese. Bowel sounds are diminished in all 4 quadrants. Mild tenderness to palpation in al l 4 quadrants. Post-surgical changes noted on the abdominal wall. No palpable mass. No rebound not ed. EXTREMITIES: Warm and dry with fair turgor. No clubbing, cyanosis or asymmetric edema appreciated. Pulses palpable distally at the dorsalis pedis, posterior tibial, and popliteal arteries bilaterally . Capillary refill less than 2 seconds. NEUROLOGIC: Cranial nerves II-XII are grossly intact. No focal or lateralizing signs appreciated. PERTINENT LABORATORY AND X-RAY FINDINGS: Sodium 133, potassium 3.9, chloride 105, CO2 of 22, BUN 8, creatinine 0.66, glucose 117, lactic acid level 0.7, calcium 7.9, total bilirubin 9.2, AST 35, ALT of 29, alkaline phosphatase 78, albumin 3.1. CBC showed a white blood cell count of 12.3, hemoglobin 1 0.6, hematocrit 30.6, platelet count 116 with 82% neutrophils. CT of the abdomen and pelvis dated showed large volume of fluid within the abdomen and pelvis postoperatively. Postoperative i ntraperitoneal gas noted . Splenomegaly. Portable chest x-ray dated 12/30/2017 showed no acute card iopulmonary process. EKG dated 12/30/2017 by my interpretation shows sinus tachycardia with heart ra sylvia in the 120s. Normal R-wave progression noted in precordial leads. Normal axis. No acute ST-T w ave changes appreciated. ASSESSMENT AND PLAN: 1. Sepsis. The patient will be admitted to the medical floor. We will continue intravenous D5 NS a t 125 mL per hour. Continue meropenem 1 gram IV every 8 hours. Blood cultures x2 pending. We will continue general supportive measures and monitor clinical response. Suspect source of sepsis is intr a-abdominal process postoperatively. 2. Cholestasis with bile leak. Suspected bile leak given patient's hyperbilirubinemia, status post laparoscopic cholecystectomy. We will consult GI service in the a.m. for likely ERCP evaluation. Co nsult General Surgery Service in the a.m. for any further recommendations. 3. Sinus tachycardia. Secondarily to sepsis and cholestasis with bile leak. We will continue IV fl uids for hydration. 4. Hyperbilirubinemia. Suspect secondary to cholestasis as stated previously. See #2 for managemen t options. 5. Midepigastric abdominal pain. Secondarily to #2 as stated previously. Continue supportive manag ement. N.p.o. except ice chips and sips of water. Consult GI and General Surgery Service as stated previously. 6. Prophylaxis. Sequential compression devices while in bed. Pepcid 20 mg IV q.12 hours. 7. Code status is full. Surrogate medical decision maker is patient's spouse.
[2017-12-31] MEDS: Ketorolac Tromethamine 30 MG/ML VIAL IVP PRN ×2 (09:40→17:32)
[2017-12-31] MEDS ORDERED: Morphine 4 MG/ML VIAL ONE (12:52)
[2017-12-31] MEDS ORDERED: Iothalamate Meglumine 60% 50 ML VIAL FS ONE (13:07)
[2017-12-31] MEDS ORDERED: Fentanyl 100 MCG/2 ML VIAL ONE ×2 (13:23→16:31)
[2017-12-31] MEDS ORDERED: Ondansetron HCl/PF 4 MG/2 ML Vial ONE ×2 (13:23→15:05)
[2017-12-31] MEDS ORDERED: Midazolam HCl 2 mg/2 ml Vial ONE (13:23)
[2017-12-31] MEDS ORDERED: Lidocaine 2% Jelly 5 ML TUBE ONE (13:31)
[2017-12-31] MEDS ORDERED: Indomethacin 50 MG SUPP ONE (14:19)
[2017-12-31] MEDS ORDERED: Glycopyrrolate 0.2 MG/ML 5 ML SYRINGE ONE (15:05)
[2017-12-31] MEDS ORDERED: Lidocaine 1% PF 5 ML VIAL ONE (15:05)
[2017-12-31] MEDS ORDERED: Dexamethasone 20 MG/5 ML VIAL ONE (15:05)
[2017-12-31] MEDS ORDERED: PROPOFOL 200 MG/20 ML VIAL ONE (15:05)
--- NOTE | 2017-12-31 16:08 | CON ---
DATE OF CONSULTATION: 12/31/2017 REQUESTING PHYSICIAN: South Grover M.D. REASON FOR CONSULTATION: Suspected bile leak. HISTORY OF PRESENT ILLNESS: Silas Lamb is a 37-year-old -[place] woman with a history o f sickle cell trait and obesity. She was recently hospitalized here initially presenting with atypic al chest pain, but found to have cholecystitis with ultrasound showing gallstones, normal common bile duct. Three days ago she underwent a laparoscopic cholecystectomy. She had an intraoperative chola ngiogram at that time. Dr. Grover's impression was that the cholangiogram was negative with good sp illage of contrast into the duodenum, though the formal read of the cholangiogram reported questionab le filling defect in the right hepatic duct. She was discharged home two days ago. Of note, she karly dently received a couple of units of RBC transfusion during that hospitalization due to her chronic a nemia. The patient states that she never really started feeling better. Abdominal pain persisted. The pain is now all over the abdomen with a little bit of abdominal distention. She started running low grade fevers and getting short of breath and therefore presented again to [place] [facility]. She was fou nd to have significant acute worsening LFT elevation with total bilirubin up to 12. It had been 1.7 during a recent hospitalization. She has a mild leukocytosis as well. Notably, transaminases are ne saima normal with AST only 35, ALT 29. However, abdominal CT demonstrates a large amount of free flui d in the abdomen. Given all these findings, there is a concern for possible bile leak. PAST MEDICAL HISTORY: 1. Sickle cell trait. 2. Symptomatic cholelithiasis. 3. Splenomegaly secondary to sickle cell trait. 4. Hysterectomy. 5. Laparoscopic cholecystectomy with intraoperative cholangiogram 3 days ago. ALLERGIES: PENICILLIN; however, the patient tolerates Augmentin. CURRENT MEDICATIONS: Pepcid 20 mg q.12 hours. IV, Toradol p.r.n., meropenem 1 gram q.8 hours IV, mor phine p.r.n. She also received a dose of vancomycin and a dose of Dilaudid. FAMILY HISTORY: Positive for hypertension and dyslipidemia. SOCIAL HISTORY: The patient is . She lives in [place]. 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 No current alcohol, tobacco or drug use. REVIEW OF SYSTEMS: Full review of systems including constitutional, head, eyes, ears, nose, throat, GI, , cardiovascular, respiratory, musculoskeletal, and neurologic systems is negative except as no viktoria in the HPI. PHYSICAL EXAMINATION: VITAL SIGNS: Temperature 99.5, pulse 123, blood pressure 117/67, respirations 24 per minute, 100% ox ygen saturation on room air. GENERAL: A 37-year-old -[place] woman, lying in bed, in mild distress from abdominal pain. SKIN: Mild jaundice. EYES: Scleral icterus. Extraocular movements intact. ENT: Mucous membranes moist, no oral lesions. LYMPH: No submandibular, supraclavicular lymphadenopathy. THYROID: Nontender to palpation. HEART: Regular tachycardia. LUNGS: Clear to auscultation bilaterally. ABDOMEN: Mild distention. Bowel sounds are hypoactive, soft, but tender to palpation diffusely. EXTREMITIES: No peripheral edema. VESSELS: Radial pulses 2+ bilaterally. NEUROLOGICAL: Cranial nerves II-XII intact bilaterally. No focal deficits. LABORATORY STUDIES: WBC 12.3, hemoglobin 10.6, platelets 116. Sodium 133, potassium 3.9, BUN 8, cre atinine 0.66. Lactic acid 0.7, total bilirubin 9.2, direct bilirubin 5.7, AST 35, ALT 29, albumin 3. 1. IMAGING STUDIES: CT of the abdomen and pelvis from last night demonstrates a large amount of fluid w ithin the abdomen and pelvis, splenomegaly with a wedge-shaped infarction some postoperative intraper itoneal gas. The patient is status post hysterectomy. ASSESSMENT AND PLAN: 1. Elevated liver function tests following laparoscopic cholecystectomy. 2. New onset ascites, concerning for possible bile leak. 3. Sickle cell trait, status post recent transfusion. 4. Fever. 5. Tachycardia. The patient's overall clinical presentation seems most consistent with a postoperative bile leak. In terestingly, her intraoperative cholangiogram at the time of surgery was negative. But given the rap id accumulation of free fluid in the abdomen and acute elevation of bilirubin as well as her clinical presentation, I feel bile leak is likely. We will take the patient for ERCP with biliary sphinctero milena. If bile leak is confirmed, we would place a stent within the common bile duct. I discussed th e benefits and also potential risks of ERCP with the patient and family and she desires to proceed. Further recommendations following ERCP.
[2017-12-31] MEDS ORDERED: Promethazine HCl 25 MG/ML VIAL SLOW IVP PRN (16:31)
[2017-12-31] MEDS ORDERED: Promethazine HCl 25 MG/ML VIAL IM PRN (16:31)
[2017-12-31] MEDS: Morphine 4 MG/ML VIAL SLOW IVP PRN ×2 (18:17→21:47)
[2017-12-31] MEDS: Acetaminophen 500 MG TAB PO PRN (20:28)
--- NOTE | 2017-12-31 21:52 | OP ---
DATE OF PROCEDURE: 12/31/2017 SURGEON: Zay Blakely M.D. LASTER HAND SURGEON: Barney Werner M.D. PROCEDURE: Endoscopic retrograde cholangiopancreatography with biliary sphincterotomy, balloon sweep and common bile duct stent placement. INDICATION: Suspected postoperative bile leak. MEDICATIONS: 1. See anesthesia record. 2. Indomethacin 100 mg per rectum. FINDINGS: After discussion of the risks, benefits and alternatives of the procedure, informed consent was obtained and witnessed. Pre-endoscopic cardiopulmonary examination was satisfactory. Timeout was performed before sedation was achieved. Sedation was achieved with anesthesia assistance in the endoscopy unit. The patient was under general anesthesia in prone position on the fluoroscopy table. A Pentax adult side-viewing duodenoscope was advanced through the mouth beyond the esophagus and stomach and into the second portion of the duodenum. There is erosive duodenitis in the duodenal bulb and second portion of the duodenum, a normal appearing ampulla was brought into view. There was no spontaneous passage of bile out of the ampulla during the entire exam. Using a triple lumen dome tipped sphincterotome and 0.035 wire, we were able to selectively cannulate. The common bile duct cannulation was very difficult in this case. A small amount of contrast was injected into the distal part of the pancreatic duct prior to successful common bile duct cannulation. With the assistance of Dr. Werner, the common bile duct was eventually cannulated and the guidewire run-up into the right intrahepatic system. Cholangiogram was then performed. There is evidence of a low grade bile leak from the cystic duct stump. The common bile duct and intrahepatic ducts do not appear dilated. There were no visible filling defects within the bile duct. At this point, I performed a generous biliary sphincterotomy. The sphincterotome was then exchanged for an 8-12 mm extraction balloon and the balloon was passed up into the common bile duct. I made two sweeps of the common bile duct with the balloon fully inflated. There was only a small amount of biliary sludge extracted, but otherwise clear bile. At this point, it was decided to place a transpapillary stent across the ampulla area. We successfully placed a 7 cm 10-Lao straight dual flanged plastic stent successfully into the common bile duct across the ampulla. At this point, the endoscope was withdrawn, suctioning out excess air and fluid, and the procedure was complete. Post-procedure fluoroscopic images demonstrated no retroperitoneal or subdiaphragmatic free air. The patient tolerated the procedure well. There were no immediate post-procedure complications. IMPRESSION: 1. Low grade bile leak from the cystic duct stump. 2. Successful ERCP with biliary sphincterotomy, balloon sweep of the common bile duct, and placement of a 10-Lao 7 cm dual flanged straight plastic stent across the ampulla. RECOMMENDATIONS: 1. Advance diet per surgical recommendations. 2. Trend LFTs tomorrow. 3. The patient will need repeat ERCP with stent removal in 6-8 weeks. MTDD
[2018-01-01] MEDS: Ketorolac Tromethamine 30 MG/ML VIAL IVP PRN ×3 (00:05→11:53)
[2018-01-01] MEDS: Morphine 4 MG/ML VIAL SLOW IVP PRN ×4 (01:45→19:21)
[2018-01-01 05:05] LABS: ALT (SGPT) 20 U/L (8-55); AST (SGOT) 29 U/L (5-34); Alkaline Phosphatase 76 U/L (40-150); Anion Gap 12 mmol/L (10-20); BUN (Urea Nitrogen) 13 mg/dL (7.0-18.7); Bilirubin, Total 5.5 mg/dL (0.2-1.2); Calc. Creatinine Clearance 171 mL/min (70-130); Calcium 7.8 mg/dL (7.8-10.44); Carbon Dioxide 21 mmol/L (22-29); Chloride 110 mmol/L (98-107); Estimated GFR-MDRD Greater than 90; Globulin 2.4 g/dL (2.4-3.5); Glucose 143 mg/dL (70-105); Potassium 3.8 mmol/L (3.5-5.1); Protein, Total 5.4 g/dL (6.0-8.3); Sodium 139 mmol/L (136-145)
[2018-01-01] MEDS: MEROPENEM 1 GM/50 ML 1 GM in Premix Bag 1 BAG IVPB SCH (05:24)
[2018-01-01 07:14] LABS: Anisocytosis MODERATE=16-30 cells (100X) (0-5/hpf); Band 6 % (5-11); Lymphocytes 11 % (21-51); MDiff Complete? YES; Mean Corpuscular HGB CONC 34.1 g/dL (32.0-36.0); Mean Corpuscular Volume 79.1 fl (81.0-99.0); Mean Platelet Volume 9.6 fL (7.4-10.4); Metamyelocyte 2 % (0-0); Monocytes 7 % (0-10); Neutrophil 73 % (42-75); Nucleated RBC 1 % (0); PLT Morphology Comment Appears Adequate; Platelet Count 112 thou/uL (130-400); Polychromasia SLIGHT = 2-3 cells (100X) (0-2/hpf); RBC Distribution Width 20.7 % (11.5-14.5); Reactive Lymphocytes 1 % (0-10); Red Blood Cell (RBC) Count 3.34 mill/uL (4.20-5.40); Tear Drops SLIGHT = 2-5 cells (100X) (0-1/hpf)
[2018-01-01] MEDS: Ferrous Gluconate 324 MG TAB PO SCH (08:10)
[2018-01-01] MEDS: Senokot S 8.6-50 MG TAB PO SCH ×2 (08:11→20:17)
[2018-01-01] MEDS: Dextrose 5 % And 0.9 % NaCl 1,000 ML IV SCH ×2 (08:17→18:19)
[2018-01-01 08:55] LABS: BHCG - Serum Negative (NEGATIVE); Pregs Control Background? CLEAR/WHITE (CLR/WHITE); Pregs Control Bar Appear? YES (CONTROL BAR)
[2018-01-01] MEDS: Famotidine/PF 20 mg/2ml Vial SLOW IVP SCH ×2 (09:37→20:16)
[2018-01-01] MEDS: Acetaminophen 500 MG TAB PO PRN ×2 (09:39→23:16)
--- NOTE | 2018-01-01 10:26 | PRG ---
DATE OF SERVICE: 01/01/2018 SIBJECTIVE: Ms. Lamb is improved today. Her pulse is less. She is less tachycardic. She still has persistent abdominal pain and now has more bloating, not associated with nausea, vomiting. PHYSICAL EXAMINATION: VITAL SIGNS: Pulse is down to 110, she is afebrile, respiratory rate is 18, she is 92% on room air, blood pressure 120/80. GENITOURINARY: She is voiding regularly. She did have a couple of bowel movements. CHEST: Coarse. HEART: Regular rate and rhythm. ABDOMEN: Soft, it is distended, but she has occasional bowel sounds. Her surgical wounds are healin g well. LABORATORY DATA: Her white count is down to 13, hemoglobin is 9, platelet count is 112. No bands. Sodium 139, potassium 3.8, creatinine is 0.81, bilirubin is down to 5.5, AST, ALT, alkaline phosphata se normal. ASSESSMENT: Postop laparoscopic cholecystectomy with cholangiogram complicated by cystic duct leak a nd likely transfusion reaction causing significant hyperbilirubinemia and abdominal pain. PLAN: Continue supportive care. We will keep her on clear liquids today given her bloating and naus ea. Her family has really been pushing her to drink and do the whole tray; I said that is not necess [place] and if she is having nausea that will just make her vomit. She is going to try to ambulate more today. Likely needs to be in the hospital for 2 more days.
--- NOTE | 2018-01-01 11:38 | PRG ---
DATE OF SERVICE: 01/01/2018 SUBJECTIVE: Mrs. Lamb says her abdominal pain is about the same. It remains diffuse. She gets n auseated, but is tolerating her clear liquid diet with no vomiting. She had a couple of normal-appea ring bowel movements earlier. She has been afebrile. OBJECTIVE: VITAL SIGNS: Temperature 98.2, pulse 110, blood pressure 120/80, 91% oxygen saturation on room air. GENERAL: No acute distress. HEART: Regular, tachycardia. LUNGS: Clear to auscultation bilaterally. ABDOMEN: Soft, bowel sounds present. Diffuse tenderness to palpation, but no guarding or rebound te nderness. EXTREMITIES: No peripheral edema. LABORATORY STUDIES: WBC 13.0, hemoglobin 9.0, platelets 112. Sodium 139; potassium 3.8; BUN 13; cre atinine 0.81; total bilirubin is down to 5.5 this morning, down from 9.2; alkaline phosphatase 76, T 29, ALT 20. Serum test negative. ASSESSMENT AND PLAN: 1. Postoperative bile leak from cystic duct stump, now status post successful endoscopic retrograde cholangiopancreatography with biliary sphincterotomy and stent placement to the common bile duct. 2. Bile peritonitis secondary to bile leak. 3. Abdominal pain, secondary to the above. Her total bilirubin has trended down dramatically since yesterday. Agree with Dr. Grover this is likely secondary to both bile leak as well as possible tra nsfusion reaction and hemolysis. Improvement in LFTs is reassuring. Diet can be advanced per surgic al recommendations. Dr. Grover plans to keep her on clears today and perhaps advance tomorrow. I did discuss with the patient that we are going to need to plan repeat ERCP with biliary stent remov al in about 6-8 weeks. She expresses understanding. Please call back if GI can be of any further as sistance.
[2018-01-01] MEDS ORDERED: traMADol HCl 50 MG TAB PO PRN (13:25)
[2018-01-01] MEDS: metroNIDAZOLE 500 MG in Premix Bag 1 BAG IVPB SCH ×2 (15:19→22:11)
[2018-01-01] MEDS ORDERED: diphenhydrAMINE 50 MG/ML VIAL IM/IV PRN (15:29)
--- NOTE | 2018-01-01 15:35 | PDOC.PN ---
- Subjective Encounter Start Date: 01/01/18 Encounter Start Time: 11:00 Subjective: pt in bed complains of abdomen pain - Objective Resuscitation Status: Resuscitation Status FULL:Full Resuscitation Vital Signs & Weight: Vital Signs (12 hours) Temp Pulse Resp BP Pulse Ox 01/01/18 12:16 98.4 F 121 H 16 130/84 90 L 01/01/18 08:00 98.2 F 110 H 18 92 L 01/01/18 07:45 98.2 F 110 H 18 120/80 91 L 01/01/18 04:07 98.1 F 108 H 18 127/86 92 L Weight Admit Weight 251 lb 4.8 oz Weight 251 lb 4.8 oz I&O: 12/31/17 01/01/18 01/02/18 06:59 06:59 06:59 Intake Total 532 3370 Output Total 1250 1050 Balance -718 2320 Result Diagrams: 01/01/18 03:59 01/01/18 03:59 Phys Exam - Physical Examination HEENT: PERRLA, moist MMs, sclera anicteric, TM's clear, oral pharynx no lesions , 2+ tonsils Neck: no nodes, no JVD, supple, full ROM Respiratory: no wheezing, no rales, no rhonchi, wheezing present, clear to auscultation bilateral Cardiovascular: RRR, no significant murmur, no rub, gallop, irregular Gastrointestinal: soft, positive bowel sounds mild epigastric and ruq pain Dx/Plan - Plan 1) abdominal pain 2) mild bile leak s/p ercp with stent placement12/31 3) elevated lft's 4) sickle cell trait plan: pt still has abdominal pain no nausea/vomiting. pt is passing flatus and had small bm. pt on clears advance per surgery. pt's lfts are improving. will need stent removal in 6-8 week by gi. will continue cipro/flagyl. pt's hh is stable possible mild hemolysis due to her sickle cell trait. oral pain meds ordered. hbg alc ordered pt's blood sugars have been elevated and she is obese. will add zyvox for enterococcus coverage * . Review of Systems - Review of Systems ENT: negative: Ear Pain, Ear Discharge, Nose Pain, Nose Discharge, Nose Congestion, Mouth Pain, Mouth Swelling, Throat Pain, Throat Swelling, Other Respiratory: negative: Cough, Dry, Shortness of Breath, Hemoptysis, SOB with Excertion, Pleuritic Pain, Sputum, Wheezing Cardiovascular: negative: chest pain, palpitations, orthopnea, paroxysmal nocturnal dyspnea, edema, light headedness, other Gastrointestinal: Abdominal Pain Genitourinary: negative: Dysuria, Frequency, Incontinence, Hematuria, Retention , Other Musculoskeletal: negative: Neck Pain, Shoulder Pain, Arm Pain, Back Pain, Hand Pain, Leg Pain, Foot Pain, Other - Medications/Allergies Allergies/Adverse Reactions: Allergies Allergy/AdvReac Type Severity Reaction Status Date / Time Penicillins Allergy Verified 12/27/17 05:08 Medications: Current Medications Acetaminophen (Tylenol) 1,000 mg PO Q6H PRN PRN Reason: Headache/Fever or Mild Pain Last Admin: 01/01/18 09:39 Dose: 1,000 mg Diphenhydramine HCl (Benadryl) 25 mg IM/IV Q6H PRN PRN Reason: Allergies Enoxaparin Sodium (Lovenox) 40 mg SC 0900 [facility] Enoxaparin Sodium (Lovenox) 40 mg SC NOW [facility] Stop: 01/01/18 17:45 Famotidine (Pepcid) 20 mg SLOW IVP Q12HR [facility] Last Admin: 01/01/18 09:37 Dose: 20 mg Ferrous Gluconate (Fergon) 324 mg PO QAM-[facility] Last Admin: 01/01/18 08:10 Dose: 324 mg Dextrose/Sodium Chloride (D5 0.9% Ns) 1,000 mls @ 125 mls/hr IV .Q8H [facility] Last Admin: 01/01/18 08:17 Dose: 1,000 mls Ciprofloxacin/Dextrose 400 mg/ (Device) 200 mls @ 200 mls/hr IVPB 0100,1300 [facility] Last Admin: 01/01/18 14:26 Dose: 200 mls Metronidazole 500 mg/ Device 100 mls @ 100 mls/hr IVPB Q8HR [facility] Last Admin: 01/01/18 15:19 Dose: 100 mls Ketorolac Tromethamine (Toradol) 30 mg IVP Q6H PRN PRN Reason: Pain Stop: 01/05/18 03:34 Last Admin: 01/01/18 11:53 Dose: 30 mg Morphine Sulfate (Morphine) 4 mg SLOW IVP Q4H PRN PRN Reason: Moderate to Severe Pain (6-10) Last Admin: 01/01/18 14:36 Dose: 4 mg Ondansetron HCl (Zofran Odt) 4 mg PO Q6H PRN PRN Reason: Nausea/Vomiting Ondansetron HCl (Zofran) 4 mg IVP Q6H PRN PRN Reason: Nausea/Vomiting Oxycodone HCl (Oxycodone Ir) 10 mg PO Q4H PRN PRN Reason: Pain Senna/Docusate Sodium (Senokot S) 1 tab PO BID [facility] Last Admin: 01/01/18 08:11 Dose: 1 tab Sodium Chloride (Flush - Normal Saline) 10 ml IVF Q12HR [facility] Last Admin: 01/01/18 08:13 Dose: Not Given Sodium Chloride (Flush - Normal Saline) 10 ml IVF PRN PRN PRN Reason: Saline Flush Tramadol HCl (Ultram) 50 mg PO Q6H PRN PRN Reason: Moderate Pain (4-6) Tramadol HCl (Ultram) 100 mg PO Q6H PRN PRN Reason: Severe Pain (7-10)
[2018-01-01] MEDS ORDERED: Enoxaparin Sodium 40 MG/0.4 ML SYRINGE SC SCH (15:45)
[2018-01-01] MEDS ORDERED: Vancomycin HCl 2.5 GM in Sodium Chloride 0.9% 500 ML IVPB SCH (17:00)
[2018-01-01 17:07] LABS: Troponin I 0.015 ng/mL (< 0.028)
--- NOTE | 2018-01-01 17:22 | EKG ---
Test Reason : TACHYCARDIA Blood Pressure : / mmHG Vent. Rate : 121 BPM Atrial Rate : 121 BPM P-R Int : 132 ms QRS Dur : 068 ms QT Int : 324 ms P-R-T Axes : 034 054 026 degrees QTc Int : 460 ms Sinus tachycardia Otherwise normal ECG Confirmed by ANTIONETTE BORGES ([id number]), videotape editor JOSE PRITCHETT ([id number]) on 01/01/2018 5:22:15 PM Referred By: Confirmed By:ANTIONETTE BORGES
[2018-01-01 20:13] LABS: Troponin I Less than 0.010 ng/mL (< 0.028)
[2018-01-01] MEDS ORDERED: Linezolid 600 MG in Premix Bag 1 BAG IVPB SCH (21:00)
[2018-01-01] MEDS: traMADol HCl 50 MG TAB PO PRN (22:12)
--- NOTE | 2018-01-01 23:26 | PDOC.EVN ---
Event Note - Event Note Event Note: pt is tachycardic, with high fever, will treat fever first will get another ekg if persistent tachycardia, will monitor on tele noted that she is tachycardic whole day she is on BSA
[2018-01-02] MEDS: Ketorolac Tromethamine 30 MG/ML VIAL IVP PRN (03:27)
[2018-01-02] MEDS: Dextrose 5 % And 0.9 % NaCl 1,000 ML IV SCH ×3 (03:27→20:01)
[2018-01-02 05:18] LABS: #Eosinphils 0.1 thou/uL (0.0-0.7); #Lymphocytes 1.1 thou/uL (1.20-3.40); #Monocytes 0.7 thou/uL (0.11-0.59); #Neutrophils 7.8 thou/uL (1.40-6.50); %Basophils 0.1 % (0.0-1.0); %Eosinophils 1.5 % (0.0-10.0); %Monocytes 6.7 % (0.0-10.0); %Neutrophils 80.7 % (42.0-75.0); Hemoglobin 7.6 g/dL (12.0-16.0); Mean Corpuscular HGB CONC 33.4 g/dL (32.0-36.0); Mean Corpuscular Hemoglobin 26.4 pg (27.0-31.0); Mean Corpuscular Volume 78.9 fl (81.0-99.0); Platelet Count 120 thou/uL (130-400); RBC Distribution Width 21.5 % (11.5-14.5); Red Blood Cell (RBC) Count 2.87 mill/uL (4.20-5.40); White Blood Cell (WBC) Count 9.7 thou/uL (4.8-10.8)
[2018-01-02 05:19] LABS: Hemoglobin A1c 4.4 % (4.0-6.0)
[2018-01-02 05:26] LABS: ALT (SGPT) 19 U/L (8-55); AST (SGOT) 24 U/L (5-34); Albumin 2.6 g/dL (3.5-5.0); Alkaline Phosphatase 75 U/L (40-150); Anion Gap 5 mmol/L (10-20); BUN (Urea Nitrogen) 11 mg/dL (7.0-18.7); Bilirubin, Total 3.5 mg/dL (0.2-1.2); Calc. Creatinine Clearance 169 mL/min (70-130); Calcium 7.6 mg/dL (7.8-10.44); Carbon Dioxide 25 mmol/L (22-29); Chloride 109 mmol/L (98-107); Estimated GFR-MDRD Greater than 90; Globulin 2.3 g/dL (2.4-3.5); Glucose 131 mg/dL (70-105); Potassium 3.2 mmol/L (3.5-5.1); Protein, Total 4.9 g/dL (6.0-8.3); Sodium 136 mmol/L (136-145)
[2018-01-02] MEDS: Acetaminophen 500 MG TAB PO PRN ×2 (06:01→20:07)
[2018-01-02] MEDS: metroNIDAZOLE 500 MG in Premix Bag 1 BAG IVPB SCH ×3 (06:02→21:58)
[2018-01-02] MEDS: Vancomycin HCl 1.75 GM in Sodium Chloride 0.9% 500 ML IVPB SCH ×2 (06:02→16:13)
[2018-01-02] MEDS: Enoxaparin Sodium 40 MG/0.4 ML SYRINGE SC SCH (08:50)
[2018-01-02] MEDS: Ferrous Gluconate 324 MG TAB PO SCH (08:50)
[2018-01-02] MEDS: traMADol HCl 50 MG TAB PO PRN ×2 (08:50→17:06)
[2018-01-02] MEDS ORDERED: Vancomycin HCl 1.5 GM in Sodium Chloride 0.9% 250 ML 300 ML IVPB SCH (09:00)
[2018-01-02] MEDS: Senokot S 8.6-50 MG TAB PO SCH ×2 (09:24→20:07)
[2018-01-02] MEDS: Famotidine/PF 20 mg/2ml Vial SLOW IVP SCH ×2 (09:24→20:07)
--- NOTE | 2018-01-02 09:38 | PDOC.GSPN ---
Surgery Progress Note: Subj - Subjective Patient reports: no new complaints (Still feels bloated, tolerating clears) Surgery Progress Note: Obj - Vital signs Vital signs: Vital Signs - Most Recent Temp Pulse Resp BP Pulse Ox 98.5 F 109 H 16 105/67 97 01/02/18 07:26 01/02/18 07:26 01/02/18 07:26 01/02/18 07:26 01/02/18 07:26 - Physical Exam General: no distress Respiratory: clear to auscultation Abdomen: soft, appropriately tender, distended Surgery Progress Note: Results - Labs Result Diagrams: 01/02/18 05:03 01/02/18 05:03 Lab results: Laboratory Results - last 24 hr 01/01/18 01/02/18 01/02/18 22:19 05:03 05:03 WBC 9.7 RBC 2.87 L Hgb 7.6 L Hct 22.6 L MCV 78.9 L MCH 26.4 L MCHC 33.4 RDW 21.5 H Plt Count 120 L MPV 7.0 L Neutrophils % 80.7 H Neutrophils % (Manual) Not Reportable Lymphocytes % 11.0 L Monocytes % 6.7 Eosinophils % 1.5 Basophils % 0.1 Neutrophils # 7.8 H Lymphocytes # 1.1 L Monocytes # 0.7 H Eosinophils # 0.1 Basophils # 0.0 Sodium 136 Potassium 3.2 L Chloride 109 H Carbon Dioxide 25 Anion Gap 5 L BUN 11 Creatinine 0.82 Estimated GFR (MDRD) Greater than 90 Glucose 131 H Hemoglobin A1c Calcium 7.6 L Total Bilirubin 3.5 H AST 24 ALT 19 Alkaline Phosphatase 75 Troponin I 0.010 Serum Total Protein 4.9 L Albumin 2.6 L Globulin 2.3 L Albumin/Globulin Ratio 1.1 L 01/02/18 05:03 WBC RBC Hgb Hct MCV MCH MCHC RDW Plt Count MPV Neutrophils % Neutrophils % (Manual) Lymphocytes % Monocytes % Eosinophils % Basophils % Neutrophils # Lymphocytes # Monocytes # Eosinophils # Basophils # Sodium Potassium Chloride Carbon Dioxide Anion Gap BUN Creatinine Estimated GFR (MDRD) Glucose Hemoglobin A1c 4.4 Calcium Total Bilirubin AST ALT Alkaline Phosphatase Troponin I Serum Total Protein Albumin Globulin Albumin/Globulin Ratio Surgery Progress Note: A/P - Problem (1) Cystic duct leak Current Visit: Yes Code(s): K83.8 - OTHER SPECIFIED DISEASES OF BILIARY TRACT Status: Acute (2) Transfusion reaction Current Visit: Yes Code(s): T80.92XA - UNSPECIFIED TRANSFUSION REACTION, INITIAL ENCOUNTER Status: Acute - Plan Plan: Slow improvement. She can do full liquids. Would not transfuse for her hgb in the 7's given her previous immunologic reaction.
--- NOTE | 2018-01-02 10:34 | PRG ---
DATE OF SERVICE: 01/02/2018 SUBJECTIVE: Ms. Lamb is still complaining of abdominal pain and bloating. Her pulse is improved. Her bilirubin is down. No nausea or vomiting. She is tolerating clear liquids without difficulty. She is ambulating and urinating regularly. PHYSICAL EXAMINATION: VITAL SIGNS: Blood pressure is 105/67, pulse 109, respirations 16. She is afebrile. Urine output, multiple voids. She has had a few bowel movements. ABDOMEN: Still distended, but she has active bowel sounds. Her wounds are healing well. LABORATORY DATA: White cell count is 9, hemoglobin is 7.6, platelet count is 120. Sodium 136, potas sium 3.2, creatinine 0.82. Bilirubin down to 3.5, liver tests otherwise normal. ASSESSMENT: 1. History of laparoscopic cholecystectomy complicated by postoperative cystic duct leak, status pos t endoscopic retrograde cholangiopancreatography stent placement. 2. Immunologic reaction to blood transfusion with a significant elevation in bilirubin, now improvin g. PLAN: Continue clear liquids for now. She can do full that she tolerates. Encouraged ambulation. Her pulse and bilirubin is trending down. I would not give her a blood transfusion. I think a lot o f this cholestatic liver function pattern has to do with that. She will need to be here for a few mo re days.
[2018-01-02] MEDS: oxyCODONE 5 MG TAB PO PRN ×2 (12:09→20:08)
[2018-01-02] MEDS: Ondansetron ODT 4 MG TAB PO PRN (20:07)
[2018-01-03] MEDS: Dextrose 5 % And 0.9 % NaCl 1,000 ML IV SCH ×3 (03:45→18:05)
[2018-01-03] MEDS: oxyCODONE 5 MG TAB PO PRN ×2 (04:07→10:43)
[2018-01-03] MEDS: Vancomycin HCl 1.75 GM in Sodium Chloride 0.9% 500 ML IVPB SCH (04:10)
[2018-01-03] MEDS: Acetaminophen 500 MG TAB PO PRN ×2 (04:10→15:52)
[2018-01-03 04:43] LABS: Vancomycin, Trough 8.2 ug/mL
[2018-01-03] MEDS: metroNIDAZOLE 500 MG in Premix Bag 1 BAG IVPB SCH (06:31)
--- NOTE | 2018-01-03 08:25 | PDOC.PN ---
- Subjective Encounter Start Date: 01/02/18 Encounter Start Time: 10:00 Patient is seen today, alert and oriented, She is Complaining of Right Hand itching at the IV site while she was getting IV ciprofloxacin, Discussed with nurse to Mat Guillaume. - Objective Resuscitation Status: Resuscitation Status FULL:Full Resuscitation MAR Reviewed: Yes Vital Signs & Weight: Vital Signs (12 hours) Temp Pulse Resp BP Pulse Ox 01/03/18 04:28 92 L 01/03/18 04:22 111 H 20 92 L 01/03/18 04:00 99.8 F H 116 H 18 137/74 96 01/03/18 00:00 98.7 F 111 H 18 121/80 99 Weight Admit Weight 251 lb 4.8 oz Weight 251 lb 4.8 oz I&O: 01/02/18 01/03/18 01/04/18 06:59 06:59 06:59 Intake Total 4505 3162 Output Total 300 1200 Balance 4205 1962 Result Diagrams: 01/02/18 05:03 01/02/18 05:03 Radiology Reviewed by me: Yes Phys Exam - Physical Examination HEENT: PERRLA Neck: no nodes, no JVD Respiratory: no wheezing, no rales Cardiovascular: no significant murmur Gastrointestinal: soft, non-tender Musculoskeletal: no edema Neurological: non-focal, normal sensation Psychiatric: normal affect Dx/Plan (1) Cystic duct leak Code(s): K83.8 - OTHER SPECIFIED DISEASES OF BILIARY TRACT Status: Acute Comment: PT had ERCP with Stent Placed in Ampulla. No pain noted now. (2) Transfusion reaction Code(s): T80.92XA - UNSPECIFIED TRANSFUSION REACTION, INITIAL ENCOUNTER Status : Acute Comment: Will closley Monitor , avoid transfusion if needed. (3) Abdominal pain Code(s): R10.9 - UNSPECIFIED ABDOMINAL PAIN Status: Acute Comment: likely due to cholecystitis (4) Cholecystitis, acute Code(s): K81.0 - ACUTE CHOLECYSTITIS Status: Acute Comment: for surgery today (5) Hypokalemia Code(s): E87.6 - HYPOKALEMIA Status: Acute Comment: replace potassium (6) Sickle cell trait Code(s): D57.3 - SICKLE-CELL TRAIT Status: Chronic Comment: stable (7) Chest pain Code(s): R07.9 - CHEST PAIN, UNSPECIFIED Status: Resolved Comment: normal stress test (8) Adverse drug reaction Code(s): T88.7XXA - UNSP ADVERSE EFFECT OF DRUG OR MEDICAMENT, INIT ENCNTR Status: Acute Comment: Pt says has allergic Reaction to Cipro with itching at IV site is very consistant she says. - Plan cont current plan of care, plan discussed w/ family, continue antibiotics (hold Cipro), PT/OT, bilingual social worker, incentive spirometry, DVT proph w/heparin * .
[2018-01-03] MEDS: Ferrous Gluconate 324 MG TAB PO SCH (09:08)
[2018-01-03] MEDS: traMADol HCl 50 MG TAB PO PRN (09:08)
[2018-01-03] MEDS: Enoxaparin Sodium 40 MG/0.4 ML SYRINGE SC SCH (09:09)
[2018-01-03] MEDS: Famotidine/PF 20 mg/2ml Vial SLOW IVP SCH ×2 (09:53→21:08)
[2018-01-03] MEDS: Senokot S 8.6-50 MG TAB PO SCH ×2 (09:53→21:08)
[2018-01-03] MEDS ORDERED: HYDROcodone/Acetaminophen 10/325 mg Tablet PO PRN (11:30)
--- NOTE | 2018-01-03 11:32 | PDOC.GSPN ---
Surgery Progress Note: Subj - Subjective Narrative: Still bloated, not getting out of bed much Surgery Progress Note: Obj - Vital signs Vital signs: Vital Signs - Most Recent Temp Pulse Resp BP Pulse Ox 97.8 F 106 H 20 106/69 97 01/03/18 08:00 01/03/18 08:00 01/03/18 08:00 01/03/18 08:00 01/03/18 08:00 - Physical Exam General: no distress Respiratory: clear to auscultation Abdomen: soft, appropriately tender, distended Wound: healing well Surgery Progress Note: Results - Labs Result Diagrams: 01/02/18 05:03 01/02/18 05:03 Lab results: Laboratory Results - last 24 hr 01/03/18 04:13 Vancomycin Trough 8.2 Surgery Progress Note: A/P - Problem (1) Cystic duct leak Current Visit: Yes Code(s): K83.8 - OTHER SPECIFIED DISEASES OF BILIARY TRACT Status: Acute (2) Transfusion reaction Current Visit: Yes Code(s): T80.92XA - UNSPECIFIED TRANSFUSION REACTION, INITIAL ENCOUNTER Status: Acute - Plan Plan: slow improvement. GI soft diet. Stop antibiotics. Try norco for pain
[2018-01-03] MEDS ORDERED: Vancomycin HCl 1.75 GM in Sodium Chloride 0.9% 500 ML IVPB SCH (12:00)
--- NOTE | 2018-01-03 16:19 | PDOC.PN ---
- Subjective Encounter Start Date: 01/03/18 Encounter Start Time: 15:00 PAtient is seen today, alert and oriented,. She has No itching today, contuinuos to have Abdominal pain, she is not eating any food. - Objective Resuscitation Status: Resuscitation Status FULL:Full Resuscitation MAR Reviewed: Yes Vital Signs & Weight: Vital Signs (12 hours) Temp Pulse Resp BP Pulse Ox 01/03/18 15:50 101.4 F H 122 H 14 121/83 99 01/03/18 11:48 100.1 F H 108 H 20 147/83 H 97 01/03/18 08:00 97.8 F 106 H 20 106/69 97 01/03/18 04:28 92 L 01/03/18 04:22 111 H 20 92 L Weight Admit Weight 251 lb 4.8 oz Weight 251 lb 4.8 oz I&O: 01/02/18 01/03/18 01/04/18 06:59 06:59 06:59 Intake Total 4505 3162 Output Total 300 1200 Balance 4205 1962 Result Diagrams: 01/02/18 05:03 01/02/18 05:03 Radiology Reviewed by me: Yes Phys Exam - Physical Examination HEENT: PERRLA, moist MMs Neck: no nodes, no JVD Respiratory: no wheezing, no rales Cardiovascular: RRR, no significant murmur Gastrointestinal: soft, non-tender Musculoskeletal: no edema, pulses present Neurological: non-focal, normal sensation Lymphatic: no nodes Dx/Plan (1) Cystic duct leak Code(s): K83.8 - OTHER SPECIFIED DISEASES OF BILIARY TRACT Status: Acute Comment: PT had ERCP with Stent Placed in Ampulla. No pain noted now. (2) Transfusion reaction Code(s): T80.92XA - UNSPECIFIED TRANSFUSION REACTION, INITIAL ENCOUNTER Status : Acute Comment: Will closley Monitor , avoid transfusion if needed. (3) Abdominal pain Code(s): R10.9 - UNSPECIFIED ABDOMINAL PAIN Status: Acute Comment: Post Stent, still Bile neda related Abdominal pain. Improving. (4) Cholecystitis, acute Code(s): K81.0 - ACUTE CHOLECYSTITIS Status: Acute Comment: for surgery today (5) Hypokalemia Code(s): E87.6 - HYPOKALEMIA Status: Acute Comment: replace potassium (6) Sickle cell trait Code(s): D57.3 - SICKLE-CELL TRAIT Status: Chronic Comment: stable (7) Chest pain Code(s): R07.9 - CHEST PAIN, UNSPECIFIED Status: Resolved Comment: normal stress test (8) Adverse drug reaction Code(s): T88.7XXA - UNSP ADVERSE EFFECT OF DRUG OR MEDICAMENT, INIT ENCNTR Status: Resolved Comment: Pt says has allergic Reaction to Cipro with itching at IV site is very consistant she says.Stopped all Abx. - Plan cont current plan of care, plan discussed w/ family, PT/OT, older adult social work specialist, incentive spirometry, out of bed/ambulate, DVT proph w/lovenox * . Review of Systems - Review of Systems Eyes: negative: Pain, Vision Change, Conjunctivae Inflammation, Eyelid Inflammation, Redness, Other ENT: negative: Ear Pain, Ear Discharge, Nose Pain, Nose Discharge, Nose Congestion, Mouth Pain, Mouth Swelling, Throat Pain, Throat Swelling, Other Respiratory: negative: Cough, Dry, Shortness of Breath, Hemoptysis, SOB with Excertion, Pleuritic Pain, Sputum, Wheezing Cardiovascular: negative: chest pain, palpitations, orthopnea, paroxysmal nocturnal dyspnea, edema, light headedness, other Gastrointestinal: Nausea, Abdominal Pain, Diarrhea Musculoskeletal: negative: Neck Pain, Shoulder Pain, Arm Pain, Back Pain, Hand Pain, Leg Pain, Foot Pain, Other Skin: negative: Rash, Lesions, Grady, Bruising, Other - Medications/Allergies Allergies/Adverse Reactions: Allergies Allergy/AdvReac Type Severity Reaction Status Date / Time Penicillins Allergy Verified 12/27/17 05:08 Medications: Current Medications Acetaminophen (Tylenol) 1,000 mg PO Q6H PRN PRN Reason: Headache/Fever or Mild Pain Last Admin: 01/03/18 15:52 Dose: 1,000 mg Hydrocodone Bitart/Acetaminophen ([place] 10/325) 1 tab PO Q4H PRN PRN Reason: Moderate Pain (4-6) Hydrocodone Bitart/Acetaminophen ([place] 10/325) 2 tab PO Q4H PRN PRN Reason: Severe Pain (7-10) Albuterol/Ipratropium (Duoneb) 3 ml NEB Q4H PRN PRN Reason: SOB &/or Wheezing Last Admin: 05/21/18 04:22 Dose: 3 ml Diphenhydramine HCl (Benadryl) 25 mg IM/IV Q6H PRN PRN Reason: Allergies Last Admin: 01/01/18 15:56 Dose: 25 mg Enoxaparin Sodium (Lovenox) 40 mg SC 0900 [facility] Last Admin: 01/03/18 09:09 Dose: 40 mg Famotidine (Pepcid) 20 mg SLOW IVP Q12HR [facility] Last Admin: 01/03/18 09:53 Dose: 20 mg Ferrous Gluconate (Fergon) 324 mg PO QAM-[facility] Last Admin: 01/03/18 09:08 Dose: 324 mg Dextrose/Sodium Chloride (D5 0.9% Ns) 1,000 mls @ 70 mls/hr IV .[id number] [facility] Miscellaneous Medication (Pharmacy To Dose) 1 each IVPB PRN PRN PRN Reason: Pharmacy to dose Morphine Sulfate (Morphine) 4 mg SLOW IVP Q4H PRN PRN Reason: Moderate to Severe Pain (6-10) Last Admin: 01/01/18 19:21 Dose: 4 mg Ondansetron HCl (Zofran Odt) 4 mg PO Q6H PRN PRN Reason: Nausea/Vomiting Last Admin: 01/02/18 20:07 Dose: 4 mg Ondansetron HCl (Zofran) 4 mg IVP Q6H PRN PRN Reason: Nausea/Vomiting Senna/Docusate Sodium (Senokot S) 1 tab PO BID [facility] Last Admin: 01/03/18 09:53 Dose: Not Given Sodium Chloride (Flush - Normal Saline) 10 ml IVF Q12HR [facility] Last Admin: 01/03/18 09:53 Dose: Not Given Sodium Chloride (Flush - Normal Saline) 10 ml IVF PRN PRN PRN Reason: Saline Flush Tramadol HCl (Ultram) 50 mg PO Q6H PRN PRN Reason: Moderate Pain (4-6) Last Admin: 01/01/18 16:07 Dose: 50 mg Tramadol HCl (Ultram) 100 mg PO Q6H PRN PRN Reason: Severe Pain (7-10) Last Admin: 01/03/18 09:08 Dose: 100 mg
--- NOTE | 2018-01-03 18:41 | EKG ---
Test Reason : STAT Blood Pressure : / mmHG Vent. Rate : 142 BPM Atrial Rate : 142 BPM P-R Int : 126 ms QRS Dur : 080 ms QT Int : 264 ms P-R-T Axes : 023 025 016 degrees QTc Int : 406 ms Sinus tachycardia Cannot rule out Inferior infarct (cited on or before 01-JAN-2018) Abnormal ECG When compared with ECG of 01-JAN-2018 16:24, (Unconfirmed) No significant change was found Confirmed by ALTAGRACIA BECK ([id number]) on 01/03/2018 6:41:04 PM Referred By: ABEL Confirmed By:ALTAGRACIA BECK
--- NOTE | 2018-01-03 18:41 | EKG ---
Test Reason : Blood Pressure : / mmHG Vent. Rate : 124 BPM Atrial Rate : 124 BPM P-R Int : 134 ms QRS Dur : 082 ms QT Int : 326 ms P-R-T Axes : 029 018 011 degrees QTc Int : 468 ms Sinus tachycardia Possible Inferior infarct , age undetermined Abnormal ECG When compared with ECG of 30-DEC-2017 22:07, No significant change was found Confirmed by ALTAGRACIA BECK (2) on 01/03/2018 6:40:55 PM Referred By: JAMIL Confirmed By:ALTAGRACIA BECK
[2018-01-03] MEDS: HYDROcodone/Acetaminophen 10/325 mg Tablet PO PRN (21:55)
[2018-01-04 04:09] LABS: #Eosinphils 0.2 thou/uL (0.0-0.7); #Lymphocytes 1.2 thou/uL (1.20-3.40); #Monocytes 0.8 thou/uL (0.11-0.59); #Neutrophils 8.6 thou/uL (1.40-6.50); %Basophils 0.1 % (0.0-1.0); %Eosinophils 1.5 % (0.0-10.0); %Lymphocytes 10.9 % (21.0-51.0); %Monocytes 7.1 % (0.0-10.0); %Neutrophils 80.5 % (42.0-75.0); Hemoglobin 7.7 g/dL (12.0-16.0); Mean Corpuscular HGB CONC 32.5 g/dL (32.0-36.0); Mean Corpuscular Hemoglobin 25.8 pg (27.0-31.0); Mean Corpuscular Volume 79.4 fl (81.0-99.0); Mean Platelet Volume 11.2 fL (7.4-10.4); Platelet Count 179 thou/uL (130-400); RBC Distribution Width 21.6 % (11.5-14.5); Red Blood Cell (RBC) Count 2.97 mill/uL (4.20-5.40); White Blood Cell (WBC) Count 10.6 thou/uL (4.8-10.8)
[2018-01-04 04:21] LABS: ALT (SGPT) 14 U/L (8-55); AST (SGOT) 18 U/L (5-34); Albumin 2.8 g/dL (3.5-5.0); Alkaline Phosphatase 81 U/L (40-150); Anion Gap 6 mmol/L (10-20); BUN (Urea Nitrogen) 8 mg/dL (7.0-18.7); Bilirubin, Total 2.3 mg/dL (0.2-1.2); Calc. Creatinine Clearance 165 mL/min (70-130); Calcium 8.2 mg/dL (7.8-10.44); Carbon Dioxide 28 mmol/L (22-29); Chloride 109 mmol/L (98-107); Estimated GFR-MDRD Greater than 90; Globulin 2.8 g/dL (2.4-3.5); Glucose 126 mg/dL (70-105); Potassium 3.3 mmol/L (3.5-5.1); Protein, Total 5.6 g/dL (6.0-8.3); Sodium 140 mmol/L (136-145); Vancomycin, Trough 6.7 ug/mL
[2018-01-04] MEDS: Acetaminophen 500 MG TAB PO PRN (04:39)
[2018-01-04] MEDS: Dextrose 5 % And 0.9 % NaCl 1,000 ML IV SCH ×2 (04:40→18:45)
[2018-01-04] MEDS: Enoxaparin Sodium 40 MG/0.4 ML SYRINGE SC SCH (08:14)
[2018-01-04] MEDS: Senokot S 8.6-50 MG TAB PO SCH ×2 (08:14→21:16)
[2018-01-04] MEDS: Famotidine/PF 20 mg/2ml Vial SLOW IVP SCH ×2 (08:14→21:16)
[2018-01-04] MEDS: Ferrous Gluconate 324 MG TAB PO SCH (08:14)
[2018-01-04] MEDS: HYDROcodone/Acetaminophen 10/325 mg Tablet PO PRN ×3 (11:37→22:38)
--- NOTE | 2018-01-04 13:47 | PDOC.GSPN ---
Surgery Progress Note: Subj - Subjective Narrative: Tolerating the liquids well but still feeling very bloated. Nausea at times. Surgery Progress Note: Obj - Vital signs Vital signs: Vital Signs - Most Recent Temp Pulse Resp BP Pulse Ox 99.2 F 118 H 20 149/85 H 99 01/04/18 11:31 01/04/18 11:31 01/04/18 11:31 01/04/18 11:31 01/04/18 11:31 - Physical Exam General: no distress Respiratory: clear to auscultation Wound: dressing clean,dry,intact Surgery Progress Note: Results - Labs Result Diagrams: 01/04/18 03:13 01/04/18 03:13 Lab results: Laboratory Results - last 24 hr 01/04/18 01/04/18 01/04/18 03:13 03:13 03:13 WBC 10.6 RBC 2.97 L Hgb 7.7 L Hct 23.6 L MCV 79.4 L MCH 25.8 L MCHC 32.5 RDW 21.6 H Plt Count 179 MPV 11.2 H Neutrophils % 80.5 H Neutrophils % (Manual) Not Reportable Lymphocytes % 10.9 L Monocytes % 7.1 Eosinophils % 1.5 Basophils % 0.1 Neutrophils # 8.6 H Lymphocytes # 1.2 Monocytes # 0.8 H Eosinophils # 0.2 Basophils # 0.0 Sodium 140 Potassium 3.3 L Chloride 109 H Carbon Dioxide 28 Anion Gap 6 L BUN 8 Creatinine 0.84 Estimated GFR (MDRD) Greater than 90 Glucose 126 H Calcium 8.2 Total Bilirubin 2.3 H AST 18 ALT 14 Alkaline Phosphatase 81 Serum Total Protein 5.6 L Albumin 2.8 L Globulin 2.8 Albumin/Globulin Ratio 1.0 L Vancomycin Trough 6.7 Surgery Progress Note: A/P - Problem (1) Cystic duct leak Current Visit: Yes Code(s): K83.8 - OTHER SPECIFIED DISEASES OF BILIARY TRACT Status: Acute (2) Transfusion reaction Current Visit: Yes Code(s): T80.92XA - UNSPECIFIED TRANSFUSION REACTION, INITIAL ENCOUNTER Status: Acute - Plan Plan: Labs slowly trending down. If not markedly improved tomorrow will repeat CT scan.
--- NOTE | 2018-01-04 14:53 | PDOC.PN ---
- Subjective Encounter Start Date: 01/04/18 Encounter Start Time: 12:00 PAtient is seen vielka lemon and lio, She is Eating Her Lunch for First time after the Bilary stent. No nausea or vomiting. - Objective Resuscitation Status: Resuscitation Status FULL:Full Resuscitation MAR Reviewed: Yes Vital Signs & Weight: Vital Signs (12 hours) Temp Pulse Resp BP Pulse Ox 01/04/18 11:31 99.2 F 118 H 20 149/85 H 99 01/04/18 08:00 99.3 F 123 H 12 01/04/18 07:20 99.3 F 123 H 12 116/67 92 L 01/04/18 03:08 99.4 F 121 H 18 130/82 90 L Weight Admit Weight 251 lb 4.8 oz Weight 251 lb 4.8 oz I&O: 01/03/18 01/04/18 01/05/18 06:59 06:59 06:59 Intake Total 3162 2340 Output Total 1200 Balance 1962 2340 Result Diagrams: 01/04/18 03:13 01/04/18 03:13 Radiology Reviewed by me: Yes Phys Exam - Physical Examination HEENT: PERRLA, moist MMs Neck: no nodes, no JVD Respiratory: no wheezing, no rales Cardiovascular: RRR, no significant murmur Gastrointestinal: soft, non-tender Musculoskeletal: no edema, pulses present Neurological: non-focal, normal sensation Psychiatric: normal affect, A&O x 3 Dx/Plan (1) Cystic duct leak Code(s): K83.8 - OTHER SPECIFIED DISEASES OF BILIARY TRACT Status: Acute Comment: PT had ERCP with Stent Placed in Ampulla. No pain noted now. She started Eating some solids today. (2) Transfusion reaction Code(s): T80.92XA - UNSPECIFIED TRANSFUSION REACTION, INITIAL ENCOUNTER Status : Acute Comment: Will kendra Monitor , avoid transfusion if needed. (3) Abdominal pain Code(s): R10.9 - UNSPECIFIED ABDOMINAL PAIN Status: Acute Comment: Post Stent, still Bile neda related Abdominal pain. Improving. (4) Cholecystitis, acute Code(s): K81.0 - ACUTE CHOLECYSTITIS Status: Acute Comment: S/p day 3, pt doing well. Stopped Abx due to allergic reaction. (5) Hypokalemia Code(s): E87.6 - HYPOKALEMIA Status: Acute Comment: replace potassium (6) Sickle cell trait Code(s): D57.3 - SICKLE-CELL TRAIT Status: Chronic Comment: stable (7) Chest pain Code(s): R07.9 - CHEST PAIN, UNSPECIFIED Status: Resolved Comment: normal stress test (8) Adverse drug reaction Code(s): T88.7XXA - UNSP ADVERSE EFFECT OF DRUG OR MEDICAMENT, INIT ENCNTR Status: Resolved Comment: Pt says has allergic Reaction to Cipro with itching at IV site is very consistant she says.Stopped all Abx. - Plan cont current plan of care, PT/OT, respiratory therapy, incentive spirometry, out of bed/ambulate, DVT proph w/heparin * . Review of Systems - Review of Systems Constitutional: negative: fever, chills, sweats, weakness, malaise, other Eyes: negative: Pain, Vision Change, Conjunctivae Inflammation, Eyelid Inflammation, Redness, Other ENT: negative: Ear Pain, Ear Discharge, Nose Pain, Nose Discharge, Nose Congestion, Mouth Pain, Mouth Swelling, Throat Pain, Throat Swelling, Other Respiratory: negative: Cough, Dry, Shortness of Breath, Hemoptysis, SOB with Excertion, Pleuritic Pain, Sputum, Wheezing Cardiovascular: negative: chest pain, palpitations, orthopnea, paroxysmal nocturnal dyspnea, edema, light headedness, other Gastrointestinal: negative: Nausea, Vomiting, Abdominal Pain, Diarrhea, Constipation, Melena, Hematochezia, Other Genitourinary: negative: Dysuria, Frequency, Incontinence, Hematuria, Retention , Other - Medications/Allergies Allergies/Adverse Reactions: Allergies Allergy/AdvReac Type Severity Reaction Status Date / Time Penicillins Allergy Verified 12/27/17 05:08 Medications: Current Medications Acetaminophen (Tylenol) 1,000 mg PO Q6H PRN PRN Reason: Headache/Fever or Mild Pain Last Admin: 01/04/18 04:39 Dose: 1,000 mg Hydrocodone Bitart/Acetaminophen ([place] 10/325) 1 tab PO Q4H PRN PRN Reason: Moderate Pain (4-6) Hydrocodone Bitart/Acetaminophen ([place] 10/325) 2 tab PO Q4H PRN PRN Reason: Severe Pain (7-10) Last Admin: 01/04/18 11:37 Dose: 2 tab Albuterol/Ipratropium (Duoneb) 3 ml NEB Q4H PRN PRN Reason: SOB &/or Wheezing Last Admin: 01/03/18 04:22 Dose: 3 ml Diphenhydramine HCl (Benadryl) 25 mg IM/IV Q6H PRN PRN Reason: Allergies Last Admin: 01/01/18 15:56 Dose: 25 mg Enoxaparin Sodium (Lovenox) 40 mg SC 0900 [facility] Last Admin: 01/04/18 08:14 Dose: 40 mg Famotidine (Pepcid) 20 mg SLOW IVP Q12HR [facility] Last Admin: 01/04/18 08:14 Dose: 20 mg Ferrous Gluconate (Fergon) 324 mg PO QAM-[facility] Last Admin: 01/04/18 08:14 Dose: 324 mg Dextrose/Sodium Chloride (D5 0.9% Ns) 1,000 mls @ 70 mls/hr IV .[id number] [facility] Last Admin: 01/04/18 04:40 Dose: 1,000 mls Morphine Sulfate (Morphine) 4 mg SLOW IVP Q4H PRN PRN Reason: Moderate to Severe Pain (6-10) Last Admin: 01/01/18 19:21 Dose: 4 mg Ondansetron HCl (Zofran Odt) 4 mg PO Q6H PRN PRN Reason: Nausea/Vomiting Last Admin: 01/02/18 20:07 Dose: 4 mg Ondansetron HCl (Zofran) 4 mg IVP Q6H PRN PRN Reason: Nausea/Vomiting Senna/Docusate Sodium (Senokot S) 1 tab PO BID [facility] Last Admin: 01/04/18 08:14 Dose: 1 tab Sodium Chloride (Flush - Normal Saline) 10 ml IVF Q12HR [facility] Last Admin: 01/04/18 08:13 Dose: Not Given Sodium Chloride (Flush - Normal Saline) 10 ml IVF PRN PRN PRN Reason: Saline Flush Tramadol HCl (Ultram) 50 mg PO Q6H PRN PRN Reason: Moderate Pain (4-6) Last Admin: 01/01/18 16:07 Dose: 50 mg Tramadol HCl (Ultram) 100 mg PO Q6H PRN PRN Reason: Severe Pain (7-10) Last Admin: 01/03/18 09:08 Dose: 100 mg
[2018-01-04] MEDS: Ondansetron ODT 4 MG TAB PO PRN (22:42)
[2018-01-05] MEDS: Dextrose 5 % And 0.9 % NaCl 1,000 ML IV SCH (06:02)
[2018-01-05] MEDS: Ferrous Gluconate 324 MG TAB PO SCH (08:43)
[2018-01-05] MEDS: Senokot S 8.6-50 MG TAB PO SCH ×2 (08:43→21:36)
[2018-01-05] MEDS: Enoxaparin Sodium 40 MG/0.4 ML SYRINGE SC SCH (08:43)
--- NOTE | 2018-01-05 09:22 | PDOC.GSPN ---
Surgery Progress Note: Subj - Subjective Patient reports: no new complaints Narrative: Doing better, less distended Surgery Progress Note: Obj - Vital signs Vital signs: Vital Signs - Most Recent Temp Pulse Resp BP Pulse Ox 99.0 F 125 H 18 141/89 H 97 01/05/18 07:40 01/05/18 07:40 01/05/18 07:40 01/05/18 07:40 01/05/18 07:40 - Physical Exam General: no distress Cardiovascular: regular rate and rhythm Respiratory: clear to auscultation Abdomen: soft, non tender, distended Surgery Progress Note: Results - Labs Result Diagrams: 01/04/18 03:13 01/04/18 03:13 Surgery Progress Note: A/P - Problem (1) Cystic duct leak Current Visit: Yes Code(s): K83.8 - OTHER SPECIFIED DISEASES OF BILIARY TRACT Status: Acute Assessment and Plan: Slow improvement. Still limited by bloating from bile peritonitis. Ate more solid food last night. I suspect she will be ready for discharge tomorrow. (2) Transfusion reaction Current Visit: Yes Code(s): T80.92XA - UNSPECIFIED TRANSFUSION REACTION, INITIAL ENCOUNTER Status: Acute
[2018-01-05] MEDS: HYDROcodone/Acetaminophen 10/325 mg Tablet PO PRN (10:27)
[2018-01-05] MEDS ORDERED: Furosemide 40 MG/4 ML VIAL SLOW IVP SCH (11:00)
[2018-01-05] MEDS ORDERED: Famotidine 20 MG TAB PO SCH (11:00)
--- NOTE | 2018-01-05 12:38 | PDOC.PN ---
- Subjective Encounter Start Date: 01/05/18 Encounter Start Time: 10:00 Subjective: c/o edema in lower extremities and lower abdomen -: has abd pain but better, is trying to eat solid food -: no nausea or vomiting - Objective Resuscitation Status: Resuscitation Status FULL:Full Resuscitation MAR Reviewed: Yes Vital Signs & Weight: Vital Signs (12 hours) Temp Pulse Resp BP Pulse Ox 01/05/18 07:40 99.0 F 125 H 18 141/89 H 97 01/05/18 04:10 98.6 F 108 H 20 110/67 94 L 01/05/18 03:36 106 H 20 99 01/05/18 01:25 94 L Weight Admit Weight 251 lb 4.8 oz Weight 251 lb 4.8 oz I&O: 01/04/18 01/05/18 01/06/18 06:59 06:59 06:59 Intake Total 2340 1640 350 Balance 2340 1640 350 Result Diagrams: 01/04/18 03:13 01/04/18 03:13 Phys Exam - Physical Examination HEENT: PERRLA, moist MMs Neck: no JVD, supple Respiratory: no wheezing, no rales Cardiovascular: RRR, no significant murmur Gastrointestinal: soft, no distention, positive bowel sounds Musculoskeletal: pulses present, edema present Neurological: non-focal, moves all 4 limbs Psychiatric: normal affect, A&O x 3 Dx/Plan (1) Cystic duct leak Code(s): K83.8 - OTHER SPECIFIED DISEASES OF BILIARY TRACT Status: Acute Comment: resolving (2) s/p ercp and biliary stent Status: Acute (3) Abdominal pain Code(s): R10.9 - UNSPECIFIED ABDOMINAL PAIN Status: Acute (4) Obesity (BMI 30-39.9) Code(s): E66.9 - OBESITY, UNSPECIFIED Status: Chronic (5) Chronic anemia Code(s): D64.9 - ANEMIA, UNSPECIFIED Status: Chronic (6) Sickle cell trait Code(s): D57.3 - SICKLE-CELL TRAIT Status: Chronic Comment: stable - Plan lasix q12h iv, counselled to amb more in hallway -: is on solid diet, dc plan in am if stable per surg advice -: Hb around 7g, h/o SC trait, transfuse if Hb around 6g are less -: oral iron, pepcid, morphine, ultram, nebs prn -: will f/u * . Review of Systems - Medications/Allergies Allergies/Adverse Reactions: Allergies Allergy/AdvReac Type Severity Reaction Status Date / Time Penicillins Allergy Verified 12/27/17 05:08 Medications: Current Medications Acetaminophen (Tylenol) 1,000 mg PO Q6H PRN PRN Reason: Headache/Fever or Mild Pain Last Admin: 01/04/18 04:39 Dose: 1,000 mg Hydrocodone Bitart/Acetaminophen ([place] 10/325) 1 tab PO Q4H PRN PRN Reason: Moderate Pain (4-6) Hydrocodone Bitart/Acetaminophen ([place] 10/325) 2 tab PO Q4H PRN PRN Reason: Severe Pain (7-10) Last Admin: 01/05/18 10:27 Dose: 2 tab Albuterol/Ipratropium (Duoneb) 3 ml NEB Q4H PRN PRN Reason: SOB &/or Wheezing Last Admin: 01/05/18 03:36 Dose: 3 ml Diphenhydramine HCl (Benadryl) 25 mg IM/IV Q6H PRN PRN Reason: Allergies Last Admin: 01/01/18 15:56 Dose: 25 mg Enoxaparin Sodium (Lovenox) 40 mg SC 0900 [facility] Last Admin: 01/05/18 08:43 Dose: 40 mg Famotidine (Pepcid) 20 mg PO BID [facility] Ferrous Gluconate (Fergon) 324 mg PO QAM-WM [facility] Last Admin: 01/05/18 08:43 Dose: 324 mg Furosemide (Lasix) 40 mg SLOW IVP NOW [facility] Stop: 01/05/18 13:00 Last Admin: 01/05/18 11:15 Dose: 40 mg Furosemide (Lasix) 40 mg SLOW IVP 0600,1400 [facility] Morphine Sulfate (Morphine) 4 mg SLOW IVP Q4H PRN PRN Reason: Moderate to Severe Pain (6-10) Last Admin: 01/01/18 19:21 Dose: 4 mg Ondansetron HCl (Zofran Odt) 4 mg PO Q6H PRN PRN Reason: Nausea/Vomiting Last Admin: 01/04/18 22:42 Dose: 4 mg Ondansetron HCl (Zofran) 4 mg IVP Q6H PRN PRN Reason: Nausea/Vomiting Senna/Docusate Sodium (Senokot S) 1 tab PO BID [facility] Last Admin: 01/05/18 08:43 Dose: 1 tab Sodium Chloride (Flush - Normal Saline) 10 ml IVF Q12HR [facility] Last Admin: 01/05/18 08:43 Dose: 10 ml Sodium Chloride (Flush - Normal Saline) 10 ml IVF PRN PRN PRN Reason: Saline Flush Tramadol HCl (Ultram) 50 mg PO Q6H PRN PRN Reason: Moderate Pain (4-6) Last Admin: 01/01/18 16:07 Dose: 50 mg Tramadol HCl (Ultram) 100 mg PO Q6H PRN PRN Reason: Severe Pain (7-10) Last Admin: 01/03/18 09:08 Dose: 100 mg
[2018-01-05] MEDS: traMADol HCl 50 MG TAB PO PRN (14:20)
[2018-01-05] MEDS: Furosemide 40 MG/4 ML VIAL SLOW IVP SCH ×2 (15:40→17:10)
[2018-01-05] MEDS ORDERED: Ibuprofen 600 MG TAB PO SCH (17:00)
[2018-01-05] MEDS: Famotidine/PF 20 mg/2ml Vial SLOW IVP SCH (17:22)
[2018-01-05] MEDS: Famotidine 20 MG TAB PO SCH (21:37)
[2018-01-06] MEDS: HYDROcodone/Acetaminophen 10/325 mg Tablet PO PRN ×3 (02:52→21:52)
[2018-01-06] MEDS: Furosemide 40 MG/4 ML VIAL SLOW IVP SCH ×2 (06:43→15:33)
[2018-01-06] MEDS: Enoxaparin Sodium 40 MG/0.4 ML SYRINGE SC SCH (08:47)
[2018-01-06] MEDS: Ferrous Gluconate 324 MG TAB PO SCH (08:48)
[2018-01-06] MEDS: Senokot S 8.6-50 MG TAB PO SCH ×2 (08:48→21:52)
[2018-01-06] MEDS: Famotidine 20 MG TAB PO SCH ×2 (08:48→21:52)
[2018-01-06] MEDS: Ondansetron ODT 4 MG TAB PO PRN (09:47)
--- NOTE | 2018-01-06 12:00 | PDOC.PN ---
- Subjective Encounter Start Date: 01/06/18 Encounter Start Time: 09:40 Subjective: edema in legs are receding per patient -: no sob, still has ruq pain -: is tolerating oral diet now, mother at bedside - Objective Resuscitation Status: Resuscitation Status FULL:Full Resuscitation MAR Reviewed: Yes Vital Signs & Weight: Vital Signs (12 hours) Temp Pulse Resp BP Pulse Ox 01/06/18 07:35 99.6 F 109 H 20 129/84 100 01/06/18 03:47 98.7 F 116 H 16 123/67 98 01/06/18 00:24 99.0 F 116 H 18 119/80 95 Weight Admit Weight 251 lb 4.8 oz Weight 251 lb 4.8 oz I&O: 01/05/18 01/06/18 01/07/18 06:59 06:59 06:59 Intake Total 1640 980 Balance 1640 980 Result Diagrams: 01/04/18 03:13 01/04/18 03:13 Phys Exam - Physical Examination HEENT: PERRLA, moist MMs Neck: no JVD, supple Respiratory: no wheezing, no rales Cardiovascular: RRR, no significant murmur Gastrointestinal: soft, no distention, positive bowel sounds Musculoskeletal: pulses present, edema present Neurological: non-focal, moves all 4 limbs Psychiatric: normal affect, A&O x 3 Dx/Plan (1) Cystic duct leak Code(s): K83.8 - OTHER SPECIFIED DISEASES OF BILIARY TRACT Status: Acute Comment: resolving (2) s/p ercp and biliary stent Status: Acute (3) Abdominal pain Code(s): R10.9 - UNSPECIFIED ABDOMINAL PAIN Status: Acute Qualifiers: Abdominal location: right upper quadrant Qualified Code(s): R10.11 - Right upper quadrant pain (4) Obesity (BMI 30-39.9) Code(s): E66.9 - OBESITY, UNSPECIFIED Status: Chronic (5) Chronic anemia Code(s): D64.9 - ANEMIA, UNSPECIFIED Status: Chronic (6) Sickle cell trait Code(s): D57.3 - SICKLE-CELL TRAIT Status: Chronic Comment: stable - Plan hemostable -: iv lasix until she is hospitalized, on discharge oral lasix bid for 2 days -: morphine prn, oral iron, pepcid -: to amb as tolerated in hallway -: dc plan per surg advice * . Review of Systems - Medications/Allergies Allergies/Adverse Reactions: Allergies Allergy/AdvReac Type Severity Reaction Status Date / Time Penicillins Allergy Verified 12/27/17 05:08 Medications: Current Medications Acetaminophen (Tylenol) 1,000 mg PO Q6H PRN PRN Reason: Headache/Fever or Mild Pain Last Admin: 01/04/18 04:39 Dose: 1,000 mg Hydrocodone Bitart/Acetaminophen ([place] 10/325) 1 tab PO Q4H PRN PRN Reason: Moderate Pain (4-6) Hydrocodone Bitart/Acetaminophen ([place] 10/325) 2 tab PO Q4H PRN PRN Reason: Severe Pain (7-10) Last Admin: 01/06/18 09:49 Dose: 2 tab Albuterol/Ipratropium (Duoneb) 3 ml NEB Q4H PRN PRN Reason: SOB &/or Wheezing Last Admin: 01/05/18 03:36 Dose: 3 ml Diphenhydramine HCl (Benadryl) 25 mg IM/IV Q6H PRN PRN Reason: Allergies Last Admin: 01/01/18 15:56 Dose: 25 mg Enoxaparin Sodium (Lovenox) 40 mg SC 0900 [facility] Last Admin: 01/06/18 08:47 Dose: 40 mg Famotidine (Pepcid) 20 mg PO BID [facility] Last Admin: 01/06/18 08:48 Dose: 20 mg Ferrous Gluconate (Fergon) 324 mg PO QAM-[facility] Last Admin: 01/06/18 08:48 Dose: 324 mg Furosemide (Lasix) 40 mg SLOW IVP 0600,1400 [facility] Last Admin: 01/06/18 06:43 Dose: 40 mg Morphine Sulfate (Morphine) 4 mg SLOW IVP Q4H PRN PRN Reason: Moderate to Severe Pain (6-10) Last Admin: 01/01/18 19:21 Dose: 4 mg Ondansetron HCl (Zofran Odt) 4 mg PO Q6H PRN PRN Reason: Nausea/Vomiting Last Admin: 01/06/18 09:47 Dose: 4 mg Ondansetron HCl (Zofran) 4 mg IVP Q6H PRN PRN Reason: Nausea/Vomiting Senna/Docusate Sodium (Senokot S) 1 tab PO BID [facility] Last Admin: 01/06/18 08:48 Dose: 1 tab Sodium Chloride (Flush - Normal Saline) 10 ml IVF Q12HR [facility] Last Admin: 01/06/18 09:50 Dose: Not Given Sodium Chloride (Flush - Normal Saline) 10 ml IVF PRN PRN PRN Reason: Saline Flush Tramadol HCl (Ultram) 50 mg PO Q6H PRN PRN Reason: Moderate Pain (4-6) Last Admin: 01/01/18 16:07 Dose: 50 mg Tramadol HCl (Ultram) 100 mg PO Q6H PRN PRN Reason: Severe Pain (7-10) Last Admin: 01/05/18 14:20 Dose: 100 mg
--- NOTE | 2018-01-06 12:46 | PDOC.GSPN ---
Surgery Progress Note: Subj - Subjective Narrative: Feels better, feels less distended. Less dyspnea Surgery Progress Note: Obj - Vital signs Vital signs: Vital Signs - Most Recent Temp Pulse Resp BP Pulse Ox 99.3 F 114 H 16 106/64 95 01/06/18 11:45 01/06/18 11:45 01/06/18 11:45 01/06/18 11:45 01/06/18 11:45 - Physical Exam General: no distress Cardiovascular: regular rate and rhythm Respiratory: clear to auscultation Abdomen: soft, non tender (Less distended.) Wound: healing well Surgery Progress Note: Results - Labs Result Diagrams: 01/04/18 03:13 01/04/18 03:13 Surgery Progress Note: A/P - Problem (1) Cystic duct leak Current Visit: Yes Code(s): K83.8 - OTHER SPECIFIED DISEASES OF BILIARY TRACT Status: Acute (2) Transfusion reaction Current Visit: Yes Code(s): T80.92XA - UNSPECIFIED TRANSFUSION REACTION, INITIAL ENCOUNTER Status: Acute - Plan Plan: Bloating improved. On lasix per medicine. tolerating more po Cdiff negative Home tomorrow.
[2018-01-06] MEDS ORDERED: Furosemide 40 MG TAB PO SCH (15:45)
[2018-01-06] MEDS: Acetaminophen 500 MG TAB PO PRN (18:40)
[2018-01-07] MEDS: HYDROcodone/Acetaminophen 10/325 mg Tablet PO PRN (08:08)
[2018-01-07] MEDS: Ferrous Gluconate 324 MG TAB PO SCH (08:10)
[2018-01-07] MEDS: Famotidine 20 MG TAB PO SCH (08:12)
[2018-01-07] MEDS: Enoxaparin Sodium 40 MG/0.4 ML SYRINGE SC SCH (08:12)
[2018-01-07] MEDS: Senokot S 8.6-50 MG TAB PO SCH (08:12)
[2018-01-07] MEDS ORDERED: Furosemide 20 MG TAB PO SCH (09:00)
[2018-01-07] MEDS ORDERED: Furosemide 40 MG TAB PO SCH (09:00)
--- NOTE | 2018-01-07 11:57 | PRG ---
DATE OF SERVICE: 01/07/2018 SUBJECTIVE: Ms. Lamb feels better today. Her shortness of breath is improved. She is tolerating regular diet. She is having bowel movements. PHYSICAL EXAMINATION: VITAL SIGNS: She is afebrile. Her vital signs are stable. Her pulse remains in the 110s to 120s, b ut asymptomatic otherwise. ABDOMEN: Soft, minimally distended, appropriately tender. ASSESSMENT: 1. Cystic duct leak, status post endoscopic retrograde cholangiopancreatography stent placement. 2. Volume overload, improved with Lasix, appreciate medicine assistance. PLAN: Discharge to home. Follow up with me on 02/04. She is to follow up with GI on that day to [facility] stent removal.
[2018-01-07 12:08] VITALS: BP 112/69; TEMP 99
--- NOTE | 2018-01-07 13:00 | PDOC.PN ---
- Subjective Encounter Start Date: 01/07/18 Encounter Start Time: 09:30 Subjective: abd pain is better this morning -: is amb in hallway, appetite is coming back -: edema in LE is gone - Objective Resuscitation Status: Resuscitation Status FULL:Full Resuscitation MAR Reviewed: Yes Vital Signs & Weight: Vital Signs (12 hours) Temp Pulse Resp BP BP Pulse Ox 01/07/18 12:07 99 F 119 H 16 112/69 96 01/07/18 07:59 100.9 F H 124 H 16 129/67 92 L 01/07/18 07:32 99.1 F 116 H 16 01/07/18 04:02 99.1 F 116 H 16 122/81 100 Weight Admit Weight 251 lb 4.8 oz Weight 251 lb 4.8 oz I&O: 01/06/18 01/07/18 01/08/18 06:59 06:59 06:59 Intake Total 980 2100 500 Output Total 400 Balance 980 1700 500 Result Diagrams: 01/04/18 03:13 01/04/18 03:13 Phys Exam - Physical Examination HEENT: PERRLA, moist MMs Neck: no JVD, supple Respiratory: no wheezing, no rales Cardiovascular: RRR, no significant murmur Gastrointestinal: soft, no distention, positive bowel sounds Musculoskeletal: no edema, pulses present Neurological: non-focal, moves all 4 limbs Psychiatric: normal affect, A&O x 3 Dx/Plan (1) Cystic duct leak Code(s): K83.8 - OTHER SPECIFIED DISEASES OF BILIARY TRACT Status: Acute Comment: resolving (2) s/p ercp and biliary stent Status: Acute (3) Abdominal pain Code(s): R10.9 - UNSPECIFIED ABDOMINAL PAIN Status: Acute Qualifiers: Abdominal location: right upper quadrant Qualified Code(s): R10.11 - Right upper quadrant pain (4) Obesity (BMI 30-39.9) Code(s): E66.9 - OBESITY, UNSPECIFIED Status: Chronic (5) Chronic anemia Code(s): D64.9 - ANEMIA, UNSPECIFIED Status: Chronic (6) Sickle cell trait Code(s): D57.3 - SICKLE-CELL TRAIT Status: Chronic Comment: stable - Plan hemostable -: dc plan per gen surg advice -: is tolerating oral diet and amb in hallway now -: d/w pt and parents at bedside -: may dc lasix on discharge or continue for 1 more day * . Review of Systems - Medications/Allergies Allergies/Adverse Reactions: Allergies Allergy/AdvReac Type Severity Reaction Status Date / Time Penicillins Allergy Verified 12/27/17 05:08 Medications: Current Medications Acetaminophen (Tylenol) 1,000 mg PO Q6H PRN PRN Reason: Headache/Fever or Mild Pain Last Admin: 01/06/18 18:40 Dose: 1,000 mg Hydrocodone Bitart/Acetaminophen ([place] 10/325) 1 tab PO Q4H PRN PRN Reason: Moderate Pain (4-6) Hydrocodone Bitart/Acetaminophen ([place] 10/325) 2 tab PO Q4H PRN PRN Reason: Severe Pain (7-10) Last Admin: 01/07/18 08:08 Dose: 2 tab Albuterol/Ipratropium (Duoneb) 3 ml NEB Q4H PRN PRN Reason: SOB &/or Wheezing Last Admin: 01/05/18 03:36 Dose: 3 ml Diphenhydramine HCl (Benadryl) 25 mg IM/IV Q6H PRN PRN Reason: Allergies Last Admin: 01/01/18 15:56 Dose: 25 mg Enoxaparin Sodium (Lovenox) 40 mg SC 0900 [facility] Last Admin: 01/07/18 08:12 Dose: 40 mg Famotidine (Pepcid) 20 mg PO BID [facility] Last Admin: 01/07/18 08:12 Dose: 20 mg Ferrous Gluconate (Fergon) 324 mg PO QAM-WM [facility] Last Admin: 01/07/18 08:10 Dose: 324 mg Furosemide (Lasix) 40 mg PO 0900,1400 [facility] Last Admin: 01/07/18 08:10 Dose: 40 mg Morphine Sulfate (Morphine) 4 mg SLOW IVP Q4H PRN PRN Reason: Moderate to Severe Pain (6-10) Last Admin: 01/01/18 19:21 Dose: 4 mg Ondansetron HCl (Zofran Odt) 4 mg PO Q6H PRN PRN Reason: Nausea/Vomiting Last Admin: 01/06/18 09:47 Dose: 4 mg Ondansetron HCl (Zofran) 4 mg IVP Q6H PRN PRN Reason: Nausea/Vomiting Senna/Docusate Sodium (Senokot S) 1 tab PO BID [facility] Last Admin: 01/07/18 08:12 Dose: 1 tab Sodium Chloride (Flush - Normal Saline) 10 ml IVF Q12HR [facility] Last Admin: 01/07/18 10:54 Dose: Not Given Sodium Chloride (Flush - Normal Saline) 10 ml IVF PRN PRN PRN Reason: Saline Flush Tramadol HCl (Ultram) 50 mg PO Q6H PRN PRN Reason: Moderate Pain (4-6) Last Admin: 01/01/18 16:07 Dose: 50 mg Tramadol HCl (Ultram) 100 mg PO Q6H PRN PRN Reason: Severe Pain (7-10) Last Admin: 01/05/18 14:20 Dose: 100 mg
--- NOTE | 2018-01-07 20:44 | DIS ---
DATE OF ADMISSION: 12/30/2017 DATE OF DISCHARGE: 01/07/2018 DISCHARGE DISPOSITION: To home. PRIMARY DISCHARGE DIAGNOSES: Cystic duct leak with a recent history of laparoscopic cholecystectomy, status post ERCP with biliary stent; abdominal pain, secondary to above. SECONDARY DISCHARGE DIAGNOSES: Chronic anemia with history of sickle cell trait, obesity. PROCEDURES DONE DURING HOSPITALIZATION: The patient had ERCP with biliary sphincterotomy and common bile duct stent placed by Dr. Barney Werner on 12/31/2017. Abdominal pelvic CAT scan done on 12/31/19 showed large volume fluid within the abdomen and pelvis, greater than would be expected postoperat ively. Stool for C. diff was negative. Discharge H&H on 01/04/2018 was 7.7 and 23, platelet count 1 79. Had a white count of 10 with 80% neutrophils. BUN and creatinine 8 and 0.8, albumin is 2.8. Tr oponin x3 was negative. INPATIENT CONSULTS: Dr. Grover for General Surgery, Dr. Zay Blakely/Dr. Barney Werner for Gastroenter ology. DISCHARGE MEDICATIONS: The patient to continue Augmentin 875 mg p.o. twice daily, Grover p.r.n. for p ain. ALLERGIES: PENICILLIN. BRIEF COURSE DURING HOSPITALIZATION: The patient initially got admitted on 12/31/2017 with complaint s of abdominal pain. The patient had laparoscopic cholecystectomy done on 12/29/[address] Grover. In view of this history and abdominal CAT scan findings of increased fluid in the abdominal cavity, the patient was admitted. The patient has had consultation with Dr. Grover. She was on broad spec trum IV antibiotics initially and was kept n.p.o. She was found to have had a cholestasis with bile leak. She has been slowly weaned into solid food. Her abdominal pain is slowly resolving. She is t olerating oral solid diet. The patient has had acute blood loss anemia and in addition to her being a sickle cell trait, transfusions were avoided. She is hemodynamically stable and has been cleared f or discharge by Dr. Grover. She needs to follow up with Dr. Grover as advised and primary care paulina duke in 1 week. Please see a [id number] documentation on [facility] for the day of discharge.
== END 2018-01-07 13:19 | disposition home or self-care (01) | DRG 872 ==
LOC: ERS 21:55 → 3SE 12-31 01:13 → SURG B 12-31 17:27
PROVIDERS: ADMIT Family Medicine; ATTEND Family Medicine
PROC: 0F793DZ Dilation of Common Bile Duct with Intraluminal Device, Percutaneous Approach (ICD-10-PCS; principal; 2017-12-31)
DX: A41.9 Sepsis, unspecified organism (principal); K80.00 Calculus of gallbladder with acute cholecystitis without obstruction; Z88.0 Allergy status to penicillin; D57.3 Sickle-cell trait; E80.6 Other disorders of bilirubin metabolism; T36.8X5A Adverse effect of other systemic antibiotics, initial encounter; E66.9 Obesity, unspecified; Z68.39 Body mass index [BMI] 39.0-39.9, adult
CPT/HCPCS: 36415; 36416; 74177; 76000; 80053; 80202; 82248; 83036; 83605; 84484; 84703; 85007; 85025; 85027; 87324; 87449; 93005; 93010; 94640; 94760; 96365; 96375; J2270; A4216; C1769; J0744; J1100; J1200; J1650; J1885; J1940; J2001; J2185; J2250; J2405; J2704; J3010; J3370; J7050; J7620; Q0162; Q9961; S0028

== ENCOUNTER 2018-01-12 16:11 | Inpatient (IN) | payer BC ==
[~2018-01-12 16:11] MED LIST changes: +Glycopyrrolate 0.2 MG/ML 5 ML SYRINGE ONE; +Iopamidol 370 76% 50 ML VIAL FS ONE; +Ketorolac Tromethamine 30 MG/ML VIAL ONE; +Lidocaine 1% PF 5 ML VIAL ONE; +Ondansetron HCl/PF 4 MG/2 ML Vial ONE; +PROPOFOL 200 MG/20 ML VIAL ONE; +Succinylcholine Chloride 20 MG/ML 10 ml SYRINGE FS ONE
[2018-01-12 16:57] LABS: #Eosinphils 0.1 thou/uL (0.0-0.7); #Lymphocytes 1.3 thou/uL (1.20-3.40); #Monocytes 0.7 thou/uL (0.11-0.59); #Neutrophils 7.3 thou/uL (1.40-6.50); %Basophils 0.2 % (0.0-1.0); %Eosinophils 0.6 % (0.0-10.0); %Monocytes 7.1 % (0.0-10.0); %Neutrophils 78.2 % (42.0-75.0); Mean Corpuscular HGB CONC 34.3 g/dL (32.0-36.0); Mean Corpuscular Hemoglobin 25.4 pg (27.0-31.0); Mean Corpuscular Volume 74.1 fl (81.0-99.0); Mean Platelet Volume 10.5 fL (7.4-10.4); Platelet Count 339 thou/uL (130-400); Red Blood Cell (RBC) Count 2.77 mill/uL (4.20-5.40); White Blood Cell (WBC) Count 9.4 thou/uL (4.8-10.8)
[2018-01-12 17:02] LABS: Reticulocyte Count 3.2 % (0.5-1.5)
[2018-01-12 17:12] LABS: ALT (SGPT) 17 U/L (8-55); AST (SGOT) 20 U/L (5-34); Albumin 3.2 g/dL (3.5-5.0); Alkaline Phosphatase 91 U/L (40-150); Anion Gap 13 mmol/L (10-20); BUN (Urea Nitrogen) 7 mg/dL (7.0-18.7); Bilirubin, Total 1.7 mg/dL (0.2-1.2); Calc. Creatinine Clearance 0 mL/min (70-130); Calcium 8.7 mg/dL (7.8-10.44); Carbon Dioxide 29 mmol/L (22-29); Chloride 101 mmol/L (98-107); Estimated GFR-MDRD 84; Globulin 3.4 g/dL (2.4-3.5); Glucose 129 mg/dL (70-105); Potassium 3.1 mmol/L (3.5-5.1); Protein, Total 6.6 g/dL (6.0-8.3); Sodium 140 mmol/L (136-145)
[2018-01-12 17:14] LABS: Anisocytosis MODERATE=16-30 cells (100X) (0-5/hpf); Hypochromia SLIGHT = 6-15 cells (100X) (0-5/hpf); MDiff Complete? YES; Microcytosis SLIGHT = 6-15 cells (100X) (0-5/hpf); Ovalocytes SLIGHT = 2-5 cells (100X) (0-1/hpf); PLT Morphology Comment Appears Adequate; Polychromasia SLIGHT = 2-3 cells (100X) (0-2/hpf); Schistocytes SLIGHT = 2-5 cells (100X) (0-1/hpf); Target Cells SLIGHT = 2-5 cells (100X) (0-1/hpf); Tear Drops SLIGHT = 2-5 cells (100X) (0-1/hpf)
--- NOTE | 2018-01-12 17:20 | RAD ---
SINGLE VIEW OF THE CHEST 01/12/18 COMPARISON: 12/30/17 HISTORY: Shortness of breath and fluid overload. FINDINGS: Single view of the chest shows a normal sized cardiomediastinal silhouette. There is a moderate amoun t of free air beneath both hemidiaphragms. There is no evidence of consolidation, mass, or pleural ef fusion. The bones are unremarkable. IMPRESSION: Free air beneath both hemidiaphragms. If this patient does not have a reason for free air, this could also present curvilinear atelectasis in the lung bases. Dr. Rajput is notified of the findings at 5: 15 p.m. on 01/12/18. He was going to order a CT of the abdomen and pelvis for further evaluation. POS: BALTAZAR
[2018-01-12 17:54] LABS: CK (CPK) 31 U/L (29-168); Lipase 106 U/L (8-78)
--- NOTE | 2018-01-12 20:09 | CT ---
CT OF THE ABDOMEN AND PELVIS WITH CONTRAST 01/12/18 COMPARISON: 12/30/17 HISTORY: Shortness of breath. Abdominal distention and lower extremity swelling. Patient had laparoscopic chol ecystectomy three weeks ago. TECHNIQUE: Multiple contiguous axial images were obtained in a CT of the abdomen and pelvis with contrast. PO co ntrast was administered. Coronal reformats were performed. FINDINGS: There is a moderate to large amount of free air in the anterior abdomen. A moderate amount of ascites is also seen, unchanged. The gallbladder has been removed. No biliary dilatation is seen. There appe ars to be a stent within the common bile duct. The kidneys, adrenal glands, and pancreas are unremarkable. The spleen is enlarged measuring 20 cm in length. The large and small bowel are normal in caliber. No leak of the enteric contrast is seen at this time . No abdominal or pelvic adenopathy is seen. The patient is status post hysterectomy. The osseous structures are unremarkable. Bibasilar atelectasis is seen and there is a trace left pleu ral effusion. Stranding changes are seen in the abdominal wall soft tissues. This has worsened compar ed to the prior examination. IMPRESSION: 1. Interval development of free air in the abdomen suggests a bowel perforation. The site of per foration is unclear based off this examination. 2. Ascites. 3. Splenomegaly. 4. Bibasilar atelectasis and trace left pleural effusion. POS: [facility]
[2018-01-12] MEDS ORDERED: Bupivacaine/Epinephrine 0.25% 30 ML VIAL ONE (20:59)
--- NOTE | 2018-01-12 21:25 | HP ---
CHIEF COMPLAINT: Pneumoperitoneum. HISTORY OF PRESENT ILLNESS: This is a 37-year-old female who presents with a history of laparoscopic cholecystectomy on 12/28/2017 by me for symptomatic cholelithiasis. She was admitted with atypical chest pain, found to have gallstones. She also had minimal elevation of her liver tests at that time and had a normal cholangiogram. She was discharged home and returned with more abdominal pain, dist ention, high bilirubin, and free intraperitoneal fluid. She underwent ERCP and was found to have a b ile leak. She had a stent placed by Dr. Blakely. Her hospital course was long and associated with abdo manuel distention, shortness of breath. Her abnormally high bilirubin eventually started to normalize and on the day of discharge, she was doing better. She was tolerating regular food and having bowel movements, ambulatory, and was discharged home. She now presents with continued shortness of breath , distention, and probably more abdominal pain in the last few days; however, she does not describe i t as severe. She has had no fevers. She has been eating without difficulty and having bowel movemen ts. She has been up and around. She feels fluid moving around when she moves. Seen in the emergenc y department after being sent over by her primary care doctor when her followup CBC showed a hemoglob in of 7. Please note that the patient has a history of chronic anemia secondary to her sickle cell t rait. Her plain film of her chest revealed air under the diaphragm. CT scan reveals a moderate amou nt of free intraperitoneal air and the ascites fluid present on previous CT is still there. PAST MEDICAL HISTORY: Sickle cell trait, splenomegaly. PAST SURGICAL HISTORY: Hysterectomy, laparoscopic cholecystectomy, intraoperative cholangiogram, ERC P. MEDICATIONS: Augmentin, [place], Zofran. ALLERGIES: PENICILLIN. SOCIAL HISTORY: No smoking or alcohol. She is . REVIEW OF SYSTEMS: Otherwise, negative. PHYSICAL EXAMINATION: VITAL SIGNS: Pulse 120, blood pressure 140/80. She is afebrile, respirations 18, O2 sat 95% on room . CHEST: Coarse breath sounds. HEART: Increased rate, regular rhythm without murmur. ABDOMEN: Soft, distended, diffusely tender with diffuse guarding. No rebound tenderness. Her incis ions are healing well without infection. LABORATORY DATA: Her white blood cell count is 9, hemoglobin 7, platelet count is 339. Sodium 140, potassium 3.1, creatinine 0.91. Her bilirubin is 1.7. Her AST and ALT are 20 and 17. Her alkaline phosphatase is 91. ASSESSMENT: Pneumoperitoneum of uncertain etiology, status post laparoscopic cholecystectomy with ch olangiogram on the 15 and postop ERCP for bile duct leak. Unsure of the etiology of this air. Cou ld be infection related through this large amount of potential bile in her belly. Could be transloca tion, which would be unlikely. Could be an injury of some sort with a protracted delayed presentatio n. However, we will put a laparoscope in her tonight, possible laparotomy.
[2018-01-12] MEDS ORDERED: Midazolam HCl 2 mg/2 ml Vial ONE (22:07)
[2018-01-12] MEDS ORDERED: HYDROmorphone 0.5 MG/0.5 ML SYRINGE ONE (22:07)
[2018-01-12] MEDS ORDERED: Fentanyl 100 MCG/2 ML VIAL ONE ×2 (22:07)
[2018-01-12] MEDS ORDERED: Levofloxacin 500 mg/D5W 100 ml Premix Bag ONE (22:34)
[2018-01-12 22:47] LABS: Bilirubin Negative (Negative); Blood, Urine Negative (Negative); Clarity CLEAR (Clear); Glucose, Urine (Dipstick) Negative (Negative); Leukocyte Small (Negative); Nitrite Negative (Negative); Protein, Urine (Dipstick) Negative (Neg-Trace); Specific Gravity, Urine 1.025 (1.002-1.036); Urobilinogen 0.2 mg/dL (0.2-1.0)
[2018-01-12 22:52] LABS: Bacteria/HPF None Seen HPF (None Seen); Hyaline Casts/LPF 0-3 HYALINE CAST LPF (0-3 Hyaline); Pathc Cast-AUWi Flag 0.43 (0-2.49); RBC/HPF 0-3 HPF (0-3); Squamous Epithelial 0-3 HPF (0-3)
[2018-01-13] MEDS ORDERED: diphenhydrAMINE 50 MG/ML VIAL IM/IV PRN (00:15)
[2018-01-13] MEDS ORDERED: Ondansetron HCl/PF 4 MG/2 ML Vial IVP PRN ×2 (00:15→01:21)
[2018-01-13] MEDS ORDERED: Zolpidem Tartrate 5 MG TAB PO PRN (00:15)
[2018-01-13] MEDS ORDERED: Morphine CADD 1 MG/ML CADD IV PRN (00:15)
[2018-01-13] MEDS ORDERED: Promethazine HCl 25 MG/ML VIAL IM PRN ×2 (00:15→01:21)
[2018-01-13] MEDS ORDERED: diphenhydrAMINE 25 MG CAP PO PRN (00:15)
[2018-01-13] MEDS ORDERED: Naloxone HCl 0.4 mg/ml Vial IV PRN (00:15)
[2018-01-13] MEDS ORDERED: Fentanyl 100 MCG/2 ML VIAL ONE ×2 (00:20→00:35)
[2018-01-13] MEDS ORDERED: Promethazine HCl 25 MG/ML VIAL ONE (00:30)
[2018-01-13] MEDS ORDERED: D5 1/2 NS w/20 mEq KCL 1,000 ML ONE (01:17)
[2018-01-13] MEDS ORDERED: hydrALAZINE 20 MG/ML VIAL SLOW IVP PRN (01:21)
[2018-01-13] MEDS ORDERED: Dextrose 50% Abboject 50 ML SYRINGE SLOW IVP PRN (01:21)
[2018-01-13] MEDS ORDERED: Dextrose 5% in Water 1,000 ML IV PRN (01:21)
[2018-01-13 01:56] VITALS: BMI 42.9
[2018-01-13] MEDS: D5 1/2 NS w/20 mEq KCL 1,000 ML IV SCH ×3 (02:14→21:12)
--- NOTE | 2018-01-13 02:44 | PDOC.PN ---
- Subjective Encounter Start Date: 01/13/18 Encounter Start Time: 02:00 Pt seen for followup re: management of medical comorbidities, including hypokalemia. Sleepy but arousable, denies chest pain, shortness of breath, fevers or chills. - Objective MAR Reviewed: Yes Vital Signs & Weight: Vital Signs (12 hours) Temp Pulse Resp BP Pulse Ox 01/13/18 01:30 97.6 F 104 H 20 109/74 93 L Result Diagrams: 01/12/18 16:42 01/12/18 16:42 Additional Labs: Labs reviewed by me Phys Exam - Physical Examination Morbid obesity HEENT: moist MMs Scleral icterus, conjunctival pallor Neck: supple Respiratory: clear to auscultation bilateral Cardiovascular: RRR Gastrointestinal: soft JOEL drain Neurological: moves all 4 limbs Psychiatric: normal affect Dx/Plan (1) Hypokalemia Code(s): E87.6 - HYPOKALEMIA Status: Chronic Comment: Replace potassium (2) Anemia Code(s): D64.9 - ANEMIA, UNSPECIFIED Status: Chronic Comment: Pt to receive pRBC. She has a h/o sickle trait. - Plan * . Pt admitted by general surgery for intraabdominal free air, s/p surgery with washout. Review of Systems - Medications/Allergies Allergies/Adverse Reactions: Allergies Allergy/AdvReac Type Severity Reaction Status Date / Time Penicillins Allergy Verified 12/27/17 05:08 Medications: Current Medications Albuterol/Ipratropium (Duoneb) 3 ml NEB Q4H PRN PRN Reason: Wheezing Dextrose/Water (Dextrose 50%) 25 gm SLOW IVP PRN PRN PRN Reason: Hypoglycemia Diphenhydramine HCl (Benadryl) 25 mg IM/IV Q3H PRN PRN Reason: Itching Diphenhydramine HCl (Benadryl) 25 mg PO Q3H PRN PRN Reason: Itching Enoxaparin Sodium (Lovenox) 40 mg SC 0900 ITALO Glucagon (Glucagon) 1 mg IM PRN PRN PRN Reason: Hypoglycemia Hydralazine HCl (Apresoline) 10 mg SLOW IVP Q4H PRN PRN Reason: SBP > 170 or DBP > 100 Potassium Chloride/Dextrose/Sod Cl (D5 1/2 Ns W/20 Meq Kcl) 1,000 mls @ 110 mls /hr IV .[facility]9H6M [facility] Last Admin: 01/13/18 02:14 Dose: Not Given Dextrose/Water (D5w) 1,000 mls @ 0 mls/hr IV .Q0M PRN; As Directed PRN Reason: Hypoglycemia Levofloxacin 500 mg/ Device 100 mls @ 100 mls/hr IVPB Q24HR [facility] Ketorolac Tromethamine (Toradol) 30 mg IVP Q6H PRN PRN Reason: Moderate Pain 4-6 Stop: 01/16/18 00:16 Morphine Sulfate (Morphine Cadd) 0 mg IV INF PRN PRN Reason: Pain Naloxone HCl (Narcan) 0.2 mg IV Q5MIN PRN PRN Reason: RR <8 or pt obtun/unarousable Ondansetron HCl (Zofran Odt) 4 mg PO Q6H PRN PRN Reason: Nausea/Vomiting Ondansetron HCl (Zofran) 4 mg IVP Q6H PRN PRN Reason: Nausea Pantoprazole Sodium (Protonix) 40 mg IVP DAILY [facility] Promethazine HCl (Phenergan) 12.5 mg IM Q4H PRN PRN Reason: Nausea Sodium Chloride (Flush - Normal Saline) 10 ml IVF PRN PRN PRN Reason: Saline Flush Zolpidem Tartrate (Ambien) 5 mg PO HSPRN PRN PRN Reason: Insomnia
[2018-01-13] MEDS ORDERED: Potassium Chloride 40 MEQ in Sodium Chloride 0.9% 250 ML 250 ML IVPB SCH (03:30)
[2018-01-13 06:09] LABS: #Lymphocytes 1.1 thou/uL (1.20-3.40); #Monocytes 0.7 thou/uL (0.11-0.59); #Neutrophils 7.1 thou/uL (1.40-6.50); %Basophils 0.1 % (0.0-1.0); %Eosinophils 0.5 % (0.0-10.0); %Lymphocytes 12.7 % (21.0-51.0); %Monocytes 7.7 % (0.0-10.0); Hemoglobin 7.4 g/dL (12.0-16.0); Mean Corpuscular HGB CONC 33.2 g/dL (32.0-36.0); Mean Corpuscular Hemoglobin 25.3 pg (27.0-31.0); Mean Corpuscular Volume 76.1 fl (81.0-99.0); Mean Platelet Volume 10.8 fL (7.4-10.4); Platelet Count 290 thou/uL (130-400); RBC Distribution Width 21.4 % (11.5-14.5); Red Blood Cell (RBC) Count 2.94 mill/uL (4.20-5.40)
[2018-01-13 06:19] LABS: Anion Gap 8 mmol/L (10-20); BUN (Urea Nitrogen) 8 mg/dL (7.0-18.7); Calc. Creatinine Clearance 162 mL/min (70-130); Calcium 7.9 mg/dL (7.8-10.44); Carbon Dioxide 30 mmol/L (22-29); Chloride 106 mmol/L (98-107); Estimated GFR-MDRD Greater than 90; Glucose 101 mg/dL (70-105); Potassium 3.9 mmol/L (3.5-5.1); Sodium 140 mmol/L (136-145)
[2018-01-13] MEDS: Ketorolac Tromethamine 30 MG/ML VIAL IVP PRN ×2 (08:24→13:25)
[2018-01-13] MEDS: Enoxaparin Sodium 40 MG/0.4 ML SYRINGE SC SCH (08:25)
[2018-01-13] MEDS: Pantoprazole 40 MG VIAL IVP SCH (08:25)
--- NOTE | 2018-01-13 10:01 | PRG ---
DATE OF SERVICE: 01/13/2018 SUBJECTIVE: Ms. Lamb is complaining of incisional pain. 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 She denies nausea. She is thirsty. PHYSICAL EXAMINATION: VITAL SIGNS: Her pulse is 101, blood pressure is 119/78. She is afebrile. She is 100% on room air. ABDOMEN: Her JOEL drain is not recorded, but it appears to be bile stained clear fluid now. Her GENIT OURINARY: Armendariz was 400 out overnight. ABDOMEN: Soft, appropriately tender and distended. LABORATORY DATA: White cell count is 9, hemoglobin is 7.4. Sodium is 140, potassium 3.9, creatinine 0.85. ASSESSMENT: 1. History of bile leak status post laparoscopic cholecystectomy with significant bile peritonitis, now status post washout. No obvious source for free air seen on laparotomy. We will obtain Gastrogr afin swallow study before feeding her tomorrow. 2. History of chronic anemia likely undiagnosed thalassemia. Even after 2 units overnight, her hemo globin is not increasing appropriately and she has significant splenomegaly on exam. I think she nee ds a hematologic workup. PLAN: As above. Supportive care today. Swallow study tomorrow morning.
[2018-01-13 13:31] LABS: Iron 33 ug/dL (50-170); Iron Binding Capacity, Total 154 mcg/dL (265-497)
--- NOTE | 2018-01-13 13:36 | OP ---
DATE OF PROCEDURE: 01/12/2018 PREOPERATIVE DIAGNOSES: Pneumoperitoneum, free fluid in the abdomen, history of laparoscopic cholecy stectomy complicated by postop bile leak and the need for ERCP and stent placement. POSTOPERATIVE DIAGNOSES: Pneumoperitoneum, free fluid in the abdomen, history of laparoscopic cholec ystectomy complicated by postop bile leak and the need for ERCP and stent placement. PROCEDURE PERFORMED: Exploratory laparotomy, abdominal washout. SURGEON: [place] M.D. ANESTHESIA: General. ESTIMATED BLOOD LOSS: Minimal. COMPLICATIONS: None. FINDINGS: Significant amount of bile in the abdomen. No infection. INDICATION: The patient is a 37-year-old female who underwent laparoscopic cholecystectomy with intr aoperative cholangiogram on 12/28/2017. She had gallstones and was admitted with cardiac workup that was negative for chest pain, but had minimal elevation of her liver function test. She underwent an uncomplicated laparoscopic cholecystectomy with cholangiogram that was normal. Three days later, brendon collins returned after surgery with a high bilirubin and free fluid on the CT scan. She had presumed bile leak. Of note, on her first admission, she had a blood transfusion for her chronic anemia. She was found to have a bile leak on her ERCP and had stent placement by Dr. Blakely. She now returns. She was doing better, but more upper abdominal distention, found to have free air on her CT scan. TECHNIQUE: The patient was taken to the operating room and placed supine on the table. After genera l anesthetic is obtained, the abdomen is prepped and draped in a sterile fashion. A Armendariz catheter h ad been placed. The incision is made above the umbilicus, the old laparoscopic incision. Dissection was taken down to the fascia. Abdominal cavity was entered bluntly using a Bhargavi clamp. A 5 mm tro car was placed and high-flow pneumoperitoneum was obtained. The patient has a lot of bile in her abd omen. There is some fat that was stuck to the top of the duodenum in the area of the first portion o f duodenum. Decision was made to open. An upper midline incision is made down into the fascia. Earnest roximately 6 liters of bile is extracted from the abdomen and was suctioned. The abdomen is irrigate d copiously using multiple liters of warm sterile saline until all bile is irrigated out and returns are clear. There is some omental fat stuck up in the liver bed. This is peeled down slightly with n o bleeding. There is no obvious bile leakage from this area. In the area of the cystic duct stump a nd cystic artery stump, there is significant inflammatory change, but no bile was seen obviously leak ing. There was no damage to the stomach, small intestine, colon. The small bowel was run from ligam ent of Treitz to ileocecal valve. The appendix is serosal, looks inflamed from the bile nearby, but there is no obvious perforation. Lesser sac is entered with no posterior stomach perforation. The f irst portion of the duodenum is seen anteriorly without obvious perforation. There is no purulence o r foul smell in the abdomen. Second portion of the duodenum is seen anteriorly without injury. The lateral duodenum and posterior duodenum, second portion is not seen. There is a moderate amount of i nflammation in this area, but there is no obvious purulence. There is no bile leaking from this area . A 19 round drain is brought out through a stab incision in the right upper quadrant, sewn in place using silk left in the right upper quadrant. The midline fascia was closed using #1 PDS from the to p and the bottom and tied in the middle. Subcutaneous tissue was irrigated using sterile solution. The patient was en route to recovery in stable condition. All instrument counts, needle counts, lap counts were correct. The second portion of the duodenum was not explored at the time of surgery seco ndary to some inflammatory change. It is likely postsurgical in the area. Her colon was up in this area as well. A formal swallow study and gastric emptying contrast x-ray will be performed postop to make sure there is no obvious perforation in this area. The patient en route to recovery in stable condition. All instrument counts, needle counts, lap counts were correct.
--- NOTE | 2018-01-13 14:25 | PDOC.EVN ---
Event Note - Event Note Event Note: patient seen and examined. please see note from same day for full details. patient is a 37 year old female with who presents with findings of pneumoperitoneum after lap keith and bile leak. she had abd washout. Patient remains persistently anemic with microcytic anemia despite transfusion. has hx of sickle cell trait? and possible thalassemia which could explain microcytic anemia. -cont IV abx, surgery f/u on diet status, will obtain iron studies and consult hematology for further recs.
[2018-01-13] MEDS: Acetaminophen 1,000 MG in Premix Bag 1 BAG IVPB PRN ×2 (14:40→21:17)
[2018-01-13] MEDS: Ondansetron ODT 4 MG TAB PO PRN (16:19)
[2018-01-14 04:02] LABS: #Eosinphils 0.1 thou/uL (0.0-0.7); #Lymphocytes 1.1 thou/uL (1.20-3.40); #Monocytes 0.8 thou/uL (0.11-0.59); #Neutrophils 7.8 thou/uL (1.40-6.50); %Basophils 0.2 % (0.0-1.0); %Eosinophils 0.8 % (0.0-10.0); %Lymphocytes 11.3 % (21.0-51.0); %Monocytes 8.1 % (0.0-10.0); %Neutrophils 79.5 % (42.0-75.0); Hemoglobin 8.3 g/dL (12.0-16.0); Mean Corpuscular HGB CONC 33.7 g/dL (32.0-36.0); Mean Corpuscular Hemoglobin 26.4 pg (27.0-31.0); Mean Corpuscular Volume 78.3 fl (81.0-99.0); Mean Platelet Volume 10.6 fL (7.4-10.4); Platelet Count 264 thou/uL (130-400); RBC Distribution Width 21.2 % (11.5-14.5); Red Blood Cell (RBC) Count 3.16 mill/uL (4.20-5.40); White Blood Cell (WBC) Count 9.8 thou/uL (4.8-10.8)
[2018-01-14 04:17] LABS: Anion Gap 9 mmol/L (10-20); BUN (Urea Nitrogen) 7 mg/dL (7.0-18.7); Calc. Creatinine Clearance 157 mL/min (70-130); Carbon Dioxide 26 mmol/L (22-29); Chloride 107 mmol/L (98-107); Estimated GFR-MDRD 87; Glucose 123 mg/dL (70-105); Potassium 4.2 mmol/L (3.5-5.1); Sodium 138 mmol/L (136-145)
[2018-01-14] MEDS: D5 1/2 NS w/20 mEq KCL 1,000 ML IV SCH ×3 (06:21→16:33)
[2018-01-14] MEDS: Pantoprazole 40 MG VIAL IVP SCH (08:03)
[2018-01-14] MEDS: Enoxaparin Sodium 40 MG/0.4 ML SYRINGE SC SCH (08:03)
--- NOTE | 2018-01-14 11:31 | RAD ---
GASTROGRAFIN UPPER GI: Date: 01/14/18 HISTORY: Patient had a recent CT which showed free air. Concern was for a leak in the second to third portion of the duodenum. FINDINGS: Contrast from the previous CT overlies this area within the colon. This was discussed with Dr. Karla palacios and we still decided to go ahead with the procedure and, in fact, I still obtained good visualizati on of the area of concern after the patient ingested Gastrografin. The distal esophagus appeared normal. Stomach shows no intrinsic or extrinsic abnormalities. The duod enal bulb and c-loop region were unremarkable. No leak was demonstrated. IMPRESSION: No evidence of leak demonstrated from the duodenal c-loop. Contrast passed through this area without difficulty. POS: [facility]
[2018-01-14] MEDS: Ketorolac Tromethamine 30 MG/ML VIAL IVP PRN (14:38)
--- NOTE | 2018-01-14 15:00 | PDOC.GSPN ---
Surgery Progress Note: Subj - Subjective Narrative: Thirsty. Swallow showed no duodenal/stomach leak or injury Surgery Progress Note: Obj - Vital signs Vital signs: Vital Signs - Most Recent Temp Pulse Resp BP Pulse Ox 98.6 F 118 H 18 118/73 95 01/14/18 12:05 01/14/18 12:05 01/14/18 12:05 01/14/18 12:05 01/14/18 12:05 - Physical Exam General: no distress Cardiovascular: regular rate and rhythm Respiratory: clear to auscultation Abdomen: soft, appropriately tender, distended Wound: healing well Surgery Progress Note: Results - Labs Result Diagrams: 01/14/18 03:29 01/14/18 03:29 Lab results: Laboratory Results - last 24 hr 01/14/18 01/14/18 03:29 03:29 WBC 9.8 RBC 3.16 L Hgb 8.3 L Hct 24.8 L MCV 78.3 L MCH 26.4 L MCHC 33.7 RDW 21.2 H Plt Count 264 MPV 10.6 H Neutrophils % 79.5 H Lymphocytes % 11.3 L Monocytes % 8.1 Eosinophils % 0.8 Basophils % 0.2 Neutrophils # 7.8 H Lymphocytes # 1.1 L Monocytes # 0.8 H Eosinophils # 0.1 Basophils # 0.0 Sodium 138 Potassium 4.2 Chloride 107 Carbon Dioxide 26 Anion Gap 9 L BUN 7 Creatinine 0.88 Estimated GFR (MDRD) 87 Glucose 123 H Calcium 8.0 Surgery Progress Note: A/P - Problem (1) Bile leak, postoperative Current Visit: Yes Code(s): K91.89 - OTH POSTPROCEDURAL COMPLICATIONS AND DISORDERS OF DGSTV SYS; K83.8 - OTHER SPECIFIED DISEASES OF BILIARY TRACT Status: Acute - Plan Plan: s/p washout. Swallow showed no leak. Will start Clear liquids. DC FIGURE CLERK tomorrow if kalen liquids
--- NOTE | 2018-01-14 15:23 | PDOC.PN ---
- Subjective Encounter Start Date: 01/14/18 Encounter Start Time: 15:21 Subjective: still has nausea, abd discomfort- on NOVELTY TWISTER TENDER - Objective MAR Reviewed: Yes Vital Signs & Weight: Vital Signs (12 hours) Temp Pulse Resp BP BP Pulse Ox 01/14/18 12:05 98.6 F 118 H 18 118/73 95 01/14/18 08:00 100 F H 114 H 20 98 01/14/18 07:45 100 F H 114 H 20 110/65 69 L 01/14/18 03:51 99 F 106 H 20 135/81 98 I&O: 01/13/18 01/14/18 01/15/18 06:59 06:59 06:59 Intake Total 3037.5 Output Total 3250 Balance -212.5 Result Diagrams: 01/14/18 03:29 01/14/18 03:29 Phys Exam - Physical Examination Neck: no JVD Respiratory: clear to auscultation bilateral Cardiovascular: RRR, no significant murmur Gastrointestinal: positive bowel sounds mild generalized tenderness Musculoskeletal: edema present Dx/Plan (1) Bile leak, postoperative Code(s): K91.89 - OTH POSTPROCEDURAL COMPLICATIONS AND DISORDERS OF DGSTV SYS; K83.8 - OTHER SPECIFIED DISEASES OF BILIARY TRACT Status: Acute (2) Anemia Code(s): D64.9 - ANEMIA, UNSPECIFIED Status: Chronic Qualifiers: Anemia type: unspecified type Qualified Code(s): D64.9 - Anemia, unspecified Comment: Pt to receive pRBC. She has a h/o sickle trait. (3) Hypokalemia Code(s): E87.6 - HYPOKALEMIA Status: Chronic Comment: Replace potassium (4) Abdominal pain Code(s): R10.9 - UNSPECIFIED ABDOMINAL PAIN Status: Acute Qualifiers: Abdominal location: right upper quadrant Qualified Code(s): R10.11 - Right upper quadrant pain (5) Obesity (BMI 30-39.9) Code(s): E66.9 - OBESITY, UNSPECIFIED Status: Chronic (6) Sickle cell trait Code(s): D57.3 - SICKLE-CELL TRAIT Status: Chronic Comment: stable - Plan Hg electropheresis ordered -: transfusion per Heme * .
[2018-01-14] MEDS ORDERED: MD-Gastroview 120 ML BOT ONE (18:27)
[2018-01-14] MEDS ORDERED: Acetaminophen 325 MG TAB PO SCH (18:45)
[2018-01-14] MEDS ORDERED: diphenhydrAMINE 25 MG CAP PO SCH ×2 (18:45→20:45)
--- NOTE | 2018-01-14 19:33 | CON ---
DATE OF CONSULTATION: 01/14/2018 REASON FOR CONSULTATION: Anemia. HISTORY OF PRESENT ILLNESS: Ms. 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 She had a bile leak and pneumoperitoneum, was admitted recently for abdominal washout. The patient has a history of chronic anemia. She was diagnosed with hemoglobin SC disease in 2004. She has had no acute episodes of hemolytic anemia. When she presented for surgery in the middle of December, her hemoglobin was 11.1. At discharge, she had dropped to 7.7. She has received 4 units of blood since . The last infusion was yesterday with improvement of her hemoglobin to 8.3. She had a CT scan on 12/26/2017, which showed splenomegaly with the spleen measuring 17.2 cm in length. This is consistent with her hemoglobin SC disease. She denies any chest pain or shortness of breath, no joint discomfort. 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 PAST MEDICAL AND SURGICAL HISTORY: 1. Hemoglobin SC disease. 2. Laparoscopic cholecystectomy with an ERCP and stent placement. 3. Hysterectomy. ALLERGIES: PENICILLIN. HOME MEDICATIONS: Augmentin, hydrocodone p.r.n., and Zofran p.r.n. FAMILY HISTORY: Significant for sickle cell trait. SOCIAL HISTORY: , 2 children. No alcohol, tobacco or illicit drug use. REVIEW OF SYSTEMS: Twelve-point review of systems is negative except for noted in HPI. PHYSICAL EXAMINATION: VITAL SIGNS: Temperature is 98.6, heart rate is 118, respiratory rate 18, blood pressure is 118/73, O2 sat is 95% on 2 liters. GENERAL: Well-developed, well-nourished female, in mild pain. HEENT: Normocephalic, atraumatic. Pupils are equal and reactive to light. NECK: Supple. CARDIOVASCULAR: Regular rate and rhythm. She is tachycardic. LUNGS: Clear. ABDOMEN: Mildly distended and tender to palpation. Bowel sounds are hypoactive. EXTREMITIES: No clubbing, cyanosis or edema. SKIN: No rash. HEMATOLOGIC: No petechia or purpura. NEUROLOGIC: Nonfocal. PSYCHIATRIC: The patient is alert and oriented and answering questions appropriately. PERTINENT LABORATORY AND X-RAYS: Current WBCs are 9.8, hemoglobin 8.3, hematocrit 24.8, platelet count is 264,000. She has got 80% neutrophils, 12% lymphocytes, retic count 3.2, index is 0.43. Sodium is 138, potassium 4.2, chloride 107, CO2 is 26, BUN 7, creatinine 0.88, calcium is 8.0. Iron is 33, TIBC is 154, 21% iron saturation, ferritin is 819, total bilirubin is 1.7, AST is 20, ALT 17, alkaline phosphatase is 91, serum total protein is 6.6, albumin 3.2, globulin 3.4, lipase is 106. Urine is negative for bacteria. ASSESSMENT: 1. Hemoglobin SC disease with splenomegaly. 2. Status post laparoscopic cholecystectomy with pneumoperitoneum. DISCUSSION: Case was discussed with Dr. Baum. The patient's baseline hemoglobin is around 10. He suggests transfusion of 1 unit packed RBCs today to improve blood count. We will monitor her CBC over the next few days and transfuse as needed. She remains on IV fluids and oxygen. Thank you for the consult. We will follow her hospitalization. [facility]
[2018-01-14] MEDS: Ondansetron ODT 4 MG TAB PO PRN (20:35)
[2018-01-14] MEDS ORDERED: methylPREDNISolone Sod Succ/PF 125 MG/2 ML VIAL IVP SCH (20:45)
[2018-01-14] MEDS ORDERED: Acetaminophen 325 MG TAB PO PRN (23:50)
[2018-01-15 04:31] LABS: #Lymphocytes 0.5 thou/uL (1.20-3.40); #Monocytes 0.5 thou/uL (0.11-0.59); #Neutrophils 14.6 thou/uL (1.40-6.50); %Basophils 0.2 % (0.0-1.0); %Lymphocytes 3.4 % (21.0-51.0); %Monocytes 3.1 % (0.0-10.0); %Neutrophils 93.2 % (42.0-75.0); Hemoglobin 9.4 g/dL (12.0-16.0); Mean Corpuscular HGB CONC 32.8 g/dL (32.0-36.0); Mean Corpuscular Hemoglobin 25.6 pg (27.0-31.0); Mean Platelet Volume 10.9 fL (7.4-10.4); Platelet Count 307 thou/uL (130-400); RBC Distribution Width 21.1 % (11.5-14.5); Red Blood Cell (RBC) Count 3.67 mill/uL (4.20-5.40); White Blood Cell (WBC) Count 15.6 thou/uL (4.8-10.8)
[2018-01-15 04:44] LABS: Anion Gap 12 mmol/L (10-20); BUN (Urea Nitrogen) 7 mg/dL (7.0-18.7); Calc. Creatinine Clearance 160 mL/min (70-130); Calcium 8.3 mg/dL (7.8-10.44); Carbon Dioxide 23 mmol/L (22-29); Chloride 106 mmol/L (98-107); Estimated GFR-MDRD 90; Glucose 163 mg/dL (70-105); Potassium 4.6 mmol/L (3.5-5.1); Sodium 136 mmol/L (136-145)
[2018-01-15] MEDS: Pantoprazole 40 MG VIAL IVP SCH (08:59)
[2018-01-15] MEDS: Enoxaparin Sodium 40 MG/0.4 ML SYRINGE SC SCH (08:59)
[2018-01-15] MEDS: D5 1/2 NS w/20 mEq KCL 1,000 ML IV SCH ×2 (09:00→17:22)
--- NOTE | 2018-01-15 11:06 | PDOC.PN ---
- Subjective Encounter Start Date: 01/15/18 Encounter Start Time: 11:04 Subjective: fever, chills . abd pain persists - Objective MAR Reviewed: Yes Vital Signs & Weight: Vital Signs (12 hours) Temp Pulse Resp BP Pulse Ox 01/15/18 08:30 98.5 F 99 20 97 01/15/18 08:05 98.5 F 99 20 144/88 H 97 01/15/18 04:58 99.5 F 108 H 20 127/79 94 L 01/15/18 04:09 93 L 01/15/18 00:37 100.1 F H 129 H 22 H 125/80 93 L I&O: 01/14/18 01/15/18 01/16/18 06:59 06:59 06:59 Intake Total 3037.5 175 1920 Output Total 3250 225 1500 Balance -212.5 -50 420 Result Diagrams: 01/15/18 03:58 01/15/18 03:58 Phys Exam - Physical Examination Neck: no JVD Respiratory: clear to auscultation bilateral Cardiovascular: RRR, no significant murmur mild generalized abd pain, hyperactive bowel sounds Musculoskeletal: edema present Dx/Plan (1) Bile leak, postoperative Code(s): K91.89 - OTH POSTPROCEDURAL COMPLICATIONS AND DISORDERS OF DGSTV SYS; K83.8 - OTHER SPECIFIED DISEASES OF BILIARY TRACT Status: Acute (2) Anemia Code(s): D64.9 - ANEMIA, UNSPECIFIED Status: Chronic Qualifiers: Anemia type: unspecified type Qualified Code(s): D64.9 - Anemia, unspecified Comment: Pt to receive pRBC. She has a h/o sickle trait. (3) Hypokalemia Code(s): E87.6 - HYPOKALEMIA Status: Chronic Comment: Replace potassium (4) Abdominal pain Code(s): R10.9 - UNSPECIFIED ABDOMINAL PAIN Status: Acute Qualifiers: Abdominal location: right upper quadrant Qualified Code(s): R10.11 - Right upper quadrant pain (5) Obesity (BMI 30-39.9) Code(s): E66.9 - OBESITY, UNSPECIFIED Status: Chronic (6) Sickle cell trait Code(s): D57.3 - SICKLE-CELL TRAIT Status: Chronic Comment: stable - Plan HIDA scan pending -: on iv antibx, analgesia -: Hg > 9 post transfusion -: Hg electrophoresis pending * .
[2018-01-15] MEDS ORDERED: HYDROcodone/Acetaminophen 10/325 mg Tablet PO PRN (12:03)
[2018-01-15] MEDS ORDERED: traMADol HCl 50 MG TAB PO PRN ×2 (12:03)
--- NOTE | 2018-01-15 17:40 | NM ---
HIDA SCAN 01/15/18 Patient was given 5.3 millicuries of technetium labeled Mebrofenin IV. Sequential imaging of the righ t upper quadrant obtained with one minute images taken out to 60 minutes. The delayed two hour exam w as also obtained. INDICATIONS: Post cholecystectomy. Assess for bile leak. On initial exam, normal activity is seen in the liver. Bile ducts visualized and activity is seen in the intestinal tract. There is no evidence of bowel leak or free extravasation out to one hour. On the delayed image, contrast is washed out of the liver. There is intestinal activity. No definite evidence of free bile within the abdomen. IMPRESSION: No evidence of bile leak identified. POS: [facility]
[2018-01-15] MEDS: Ondansetron ODT 4 MG TAB PO PRN (18:35)
[2018-01-16] MEDS ORDERED: Acetaminophen 500 MG TAB PO SCH (02:00)
[2018-01-16] MEDS: Ondansetron ODT 4 MG TAB PO PRN (02:24)
[2018-01-16 04:14] LABS: #Lymphocytes 0.9 thou/uL (1.20-3.40); #Monocytes 0.9 thou/uL (0.11-0.59); #Neutrophils 9.6 thou/uL (1.40-6.50); %Basophils 0.1 % (0.0-1.0); %Eosinophils 0.3 % (0.0-10.0); %Lymphocytes 7.8 % (21.0-51.0); %Monocytes 7.5 % (0.0-10.0); %Neutrophils 84.3 % (42.0-75.0); Mean Corpuscular Hemoglobin 25.6 pg (27.0-31.0); Mean Corpuscular Volume 77.7 fl (81.0-99.0); Mean Platelet Volume 10.9 fL (7.4-10.4); Platelet Count 253 thou/uL (130-400); RBC Distribution Width 21.2 % (11.5-14.5); Red Blood Cell (RBC) Count 3.13 mill/uL (4.20-5.40); White Blood Cell (WBC) Count 11.4 thou/uL (4.8-10.8)
[2018-01-16] MEDS: D5 1/2 NS w/20 mEq KCL 1,000 ML IV SCH ×3 (05:06→23:03)
[2018-01-16] MEDS: Enoxaparin Sodium 40 MG/0.4 ML SYRINGE SC SCH (08:42)
[2018-01-16] MEDS: Pantoprazole 40 MG VIAL IVP SCH (08:43)
--- NOTE | 2018-01-16 10:09 | PDOC.PN ---
- Subjective Encounter Start Date: 01/16/18 Encounter Start Time: 10:07 Subjective: fever to 102+ ,chills - Objective MAR Reviewed: Yes Vital Signs & Weight: Vital Signs (12 hours) Temp Pulse Resp BP Pulse Ox 01/16/18 08:20 100.5 F H 110 H 14 102/70 97 01/16/18 04:20 98.6 F 111 H 20 01/16/18 03:20 102.6 F H 118 H 20 01/15/18 23:34 100.3 F H 118 H 16 119/68 96 I&O: 01/15/18 01/16/18 01/17/18 06:59 06:59 06:59 Intake Total 175 5040 Output Total 225 4300 Balance -50 740 Result Diagrams: 01/16/18 03:12 01/15/18 03:58 Phys Exam - Physical Examination Neck: no JVD Respiratory: clear to auscultation bilateral Cardiovascular: RRR, no significant murmur Gastrointestinal: soft, positive bowel sounds generalized tenderness Musculoskeletal: no edema Dx/Plan (1) Bile leak, postoperative Code(s): K91.89 - OTH POSTPROCEDURAL COMPLICATIONS AND DISORDERS OF DGSTV SYS; K83.8 - OTHER SPECIFIED DISEASES OF BILIARY TRACT Status: Acute (2) Anemia Code(s): D64.9 - ANEMIA, UNSPECIFIED Status: Chronic Qualifiers: Anemia type: unspecified type Qualified Code(s): D64.9 - Anemia, unspecified Comment: Pt to receive pRBC. She has a h/o sickle trait. (3) Hypokalemia Code(s): E87.6 - HYPOKALEMIA Status: Chronic Comment: Replace potassium (4) Abdominal pain Code(s): R10.9 - UNSPECIFIED ABDOMINAL PAIN Status: Acute Qualifiers: Abdominal location: right upper quadrant Qualified Code(s): R10.11 - Right upper quadrant pain (5) Obesity (BMI 30-39.9) Code(s): E66.9 - OBESITY, UNSPECIFIED Status: Chronic (6) Sickle cell trait Code(s): D57.3 - SICKLE-CELL TRAIT Status: Chronic Comment: stable - Plan fever MEDELLIN with CXR, blood and urine C&S -: discuss antibx with surgery * .
--- NOTE | 2018-01-16 13:04 | RAD ---
PA AND LATERAL VIEWS CHEST: Date: 01/16/18 HISTORY: Fever. FINDINGS/IMPRESSION: Comparison made with exam of 01/12/18. There is mild increased opacity of the right lung base. No pneumothoraces or large effusions are seen . The possibility of pneumonia cannot be excluded. POS: [facility]
[2018-01-16] MEDS ORDERED: Acetaminophen 1,000 MG in Premix Bag 1 BAG IVPB PRN (15:34)
--- NOTE | 2018-01-16 16:19 | PDOC.EVN ---
Event Note - Event Note Event Note: CXR reveals RLL infiltrate. CT abd with contrast ordered. antibx changed to cefepime and flagyl which should cover both abd and chest infection.
[2018-01-16] MEDS: Cefepime 2 GM in Sodium Chloride 0.9% 100 ML IVPB SCH (16:33)
[2018-01-16] MEDS: metroNIDAZOLE 500 MG in Premix Bag 1 BAG IVPB SCH (17:44)
[2018-01-16] MEDS ORDERED: ISOVUE-370 76%-LOCM 1 ML ONE (18:36)
[2018-01-16] MEDS ORDERED: Iopamidol 370 76% 50 ML VIAL FS ONE (18:36)
--- NOTE | 2018-01-16 19:54 | CT ---
CT ABDOMEN AND PELVIS WITH IV CONTRAST: INDICATIONS: Abdominal pain and fever. Postop 12/26/2017. COMPARISON: CT from 01/12/2018. TECHNIQUE: Multiple axial tomograms obtained through the abdomen and pelvis with IV enhancement. FINDINGS: The lung bases continue to show bibasilar infiltrates or atelectasis. There has been significant reduction in the free intraperitoneal air when compared to 01/12/2018. Th ere are few tiny scattered pockets of extraluminal air seen anteriorly. There has also been signific ant reduction in the free abdominal ascites, although there continues to be some ascites in the mid a nd lower abdomen, extending into the pelvis. The liver, spleen, and pancreas are unremarkable. The kidneys are unremarkable. There are drainage catheters noted with a coiled catheter in the right upper quadrant. Post cholecystectomy changes. E vidence of a biliary stent. Small bowel loops show contrast opacification and mild nonspecific diste ntion. No evidence of dilatation or obstruction. Contrast is also seen in the colon. IMPRESSION: 1. Reduction in the amount of free intraperitoneal fluid, although there is fluid in the left mid ab domen and free fluid extending into the lower abdomen and pelvis. This does not appear to be loculat ed or encapsulated. 2. Significant reduction in free intraperitoneal air. 3. Bibasilar atelectasis and/or consolidation is similar to the prior exam. 4. Diffuse subcutaneous adipose haziness, which could represent edema or inflammation. This is jose lar to the prior study. POS: [facility]
--- NOTE | 2018-01-16 21:06 | PRG ---
DATE OF SERVICE: 01/16/2018 SUBJECTIVE: The patient is feeling weak. She is having nausea. Pain is about the same. She is leena ble to take much orally. She spiked a fever to 101. Her heart rate is up to 110. PHYSICAL EXAMINATION: GENERAL: She is awake, alert, does not appear to be in much distress. Her jaundice is improved. ABDOMEN: Distended, obese and very tender diffusely. I do not hear much many bowel sounds. She had a bowel movement yesterday. Her drainage output is diminished significantly. It is down to 50 for the last 24 hours, bile-tinged . She had a HIDA scan yesterday that showed no evidence of bile leak. LABORATORY DATA: Her white count yesterday was down to 11 from 15. ASSESSMENT: Peritonitis from previous bile leak with fever and also malnutrition. PLAN: Recommend TPN. Recommend repeat CT scan of abdomen and pelvis. I called the radiologist. Th lindy cannot do a PICC line today, so we will place a central line.
[2018-01-16] MEDS: HYDROcodone/Acetaminophen 10/325 mg Tablet PO PRN (21:23)
[2018-01-17] MEDS: metroNIDAZOLE 500 MG in Premix Bag 1 BAG IVPB SCH ×5 (01:00→23:07)
[2018-01-17] MEDS: HYDROcodone/Acetaminophen 10/325 mg Tablet PO PRN ×4 (01:01→19:38)
[2018-01-17] MEDS: Cefepime 2 GM in Sodium Chloride 0.9% 100 ML IVPB SCH ×2 (03:54→16:53)
[2018-01-17 05:53] LABS: #Eosinphils 0.1 thou/uL (0.0-0.7); #Lymphocytes 0.9 thou/uL (1.20-3.40); #Monocytes 0.9 thou/uL (0.11-0.59); %Basophils 0.1 % (0.0-1.0); %Eosinophils 0.8 % (0.0-10.0); %Lymphocytes 8.6 % (21.0-51.0); %Monocytes 7.8 % (0.0-10.0); %Neutrophils 82.8 % (42.0-75.0); Hemoglobin 7.7 g/dL (12.0-16.0); Mean Corpuscular HGB CONC 33.2 g/dL (32.0-36.0); Mean Corpuscular Volume 78.4 fl (81.0-99.0); Mean Platelet Volume 11.1 fL (7.4-10.4); Platelet Count 238 thou/uL (130-400); RBC Distribution Width 21.5 % (11.5-14.5); Red Blood Cell (RBC) Count 2.95 mill/uL (4.20-5.40); White Blood Cell (WBC) Count 10.8 thou/uL (4.8-10.8)
[2018-01-17 06:00] LABS: Anion Gap 8 mmol/L (10-20); BUN (Urea Nitrogen) 6 mg/dL (7.0-18.7); Calc. Creatinine Clearance 189 mL/min (70-130); Calcium 8.3 mg/dL (7.8-10.44); Carbon Dioxide 27 mmol/L (22-29); Chloride 106 mmol/L (98-107); Estimated GFR-MDRD Greater than 90; Glucose 107 mg/dL (70-105); Potassium 4.1 mmol/L (3.5-5.1); Sodium 137 mmol/L (136-145)
[2018-01-17] MEDS: D5 1/2 NS w/20 mEq KCL 1,000 ML IV SCH ×2 (07:28→17:52)
[2018-01-17] MEDS: Fluconazole In NaCl,Iso-Osm 200 MG in Premix Bag 1 BAG IVPB SCH (09:05)
[2018-01-17] MEDS: Enoxaparin Sodium 40 MG/0.4 ML SYRINGE SC SCH (09:06)
[2018-01-17] MEDS: Pantoprazole 40 MG VIAL IVP SCH (09:07)
--- NOTE | 2018-01-17 10:16 | PDOC.PN ---
- Subjective Encounter Start Date: 01/17/18 Encounter Start Time: 08:40 -: old records requested/rev Patient seen and examined for peritonitis, has abdominal pain, has fever. No overnight events - Objective MAR Reviewed: Yes Vital Signs & Weight: Vital Signs (12 hours) Temp Pulse Resp BP Pulse Ox 01/17/18 07:20 99.3 F 100 16 106/71 98 01/17/18 04:00 99.4 F 106 H 20 01/17/18 03:49 99.4 F 106 H 20 110/72 94 L 01/17/18 00:00 99.2 F 104 H 20 120/78 99 I&O: 01/16/18 01/17/18 01/18/18 06:59 06:59 06:59 Intake Total 5040 4680 2160 Output Total 4300 2765 2500 Balance 740 1915 -340 Result Diagrams: 01/17/18 04:56 01/17/18 04:56 Radiology Reviewed by me: Yes (CT abdomen and pelvis) Phys Exam - Physical Examination Constitutional: NAD HEENT: PERRLA, moist MMs, sclera anicteric Neck: no JVD, supple Respiratory: no wheezing, no rales, no rhonchi reduced air entry at base Cardiovascular: RRR, no significant murmur, no rub Gastrointestinal: soft, no distention, positive bowel sounds tenderness+, JOEL drain+ Musculoskeletal: no edema, pulses present Neurological: non-focal, normal sensation, moves all 4 limbs Lymphatic: no nodes Psychiatric: normal affect, A&O x 3 Skin: no rash, normal turgor Dx/Plan (1) Abdominal pain Code(s): R10.9 - UNSPECIFIED ABDOMINAL PAIN Status: Acute Qualifiers: Abdominal location: right upper quadrant Qualified Code(s): R10.11 - Right upper quadrant pain (2) H/O acute cholecystitis Code(s): Z87.19 - PERSONAL HISTORY OF OTHER DISEASES OF THE DIGESTIVE SYSTEM Status: Acute (3) Hx laparoscopic cholecystectomy Code(s): Z90.49 - ACQUIRED ABSENCE OF OTHER SPECIFIED PARTS OF DIGESTIVE TRACT Status: Acute (4) Bile leak, postoperative Code(s): K91.89 - OTH POSTPROCEDURAL COMPLICATIONS AND DISORDERS OF DGSTV SYS; K83.8 - OTHER SPECIFIED DISEASES OF BILIARY TRACT Status: Acute (5) History of ERCP Code(s): Z98.890 - OTHER SPECIFIED POSTPROCEDURAL STATES Status: Acute Comment: with stent placement after billiary leak (6) Pneumoperitoneum Code(s): K66.8 - OTHER SPECIFIED DISORDERS OF PERITONEUM Status: Acute (7) S/P laparotomy Status: Acute (8) Anemia, normocytic normochromic Code(s): D64.9 - ANEMIA, UNSPECIFIED Status: Chronic (9) Hypokalemia Code(s): E87.6 - HYPOKALEMIA Status: Resolved (10) Morbid obesity with BMI of 40.0-44.9, adult Code(s): E66.01 - MORBID (SEVERE) OBESITY DUE TO EXCESS CALORIES; Z68.41 - BODY MASS INDEX (BMI) 40.0-44.9, ADULT Status: Chronic (11) Sickle cell trait Code(s): D57.3 - SICKLE-CELL TRAIT Status: Chronic Comment: stable - Plan cont current plan of care, plan discussed w/ family, continue antibiotics * continue cefepime, flagyl and IV diflucan * medication reviewed as below * symptomatic treatment * post operative care as per surgeon * discussed with family bedside. Review of Systems - Review of Systems Constitutional: fever, weakness. negative: chills, sweats, malaise, other ENT: negative: Ear Pain, Ear Discharge, Nose Pain, Nose Discharge, Nose Congestion, Mouth Pain, Mouth Swelling, Throat Pain, Throat Swelling, Other Respiratory: negative: Cough, Dry, Shortness of Breath, Hemoptysis, SOB with Excertion, Pleuritic Pain, Sputum, Wheezing Cardiovascular: negative: chest pain, palpitations, orthopnea, paroxysmal nocturnal dyspnea, edema, light headedness, other Gastrointestinal: Abdominal Pain. negative: Nausea, Vomiting, Diarrhea, Constipation, Melena, Hematochezia, Other Genitourinary: negative: Dysuria, Frequency, Incontinence, Hematuria, Retention , Other Musculoskeletal: negative: Neck Pain, Shoulder Pain, Arm Pain, Back Pain, Hand Pain, Leg Pain, Foot Pain, Other Skin: negative: Rash, Lesions, Grady, Bruising, Other - Medications/Allergies Allergies/Adverse Reactions: Allergies Allergy/AdvReac Type Severity Reaction Status Date / Time Penicillins Allergy Verified 12/27/17 05:08 Medications: Current Medications Acetaminophen (Tylenol) 650 mg PO Q6H PRN PRN Reason: Fever > 101 Last Admin: 01/15/18 00:07 Dose: 650 mg Hydrocodone Bitart/Acetaminophen ([place] 10/325) 1 tab PO Q4H PRN PRN Reason: Pain (1-4) Hydrocodone Bitart/Acetaminophen ([place] 10/325) 2 tab PO Q4H PRN PRN Reason: PAIN (5-10) Last Admin: 01/17/18 03:57 Dose: 2 tab Albuterol/Ipratropium (Duoneb) 3 ml NEB Q4H PRN PRN Reason: Wheezing Dextrose/Water (Dextrose 50%) 25 gm SLOW IVP PRN PRN PRN Reason: Hypoglycemia Diphenhydramine HCl (Benadryl) 25 mg IM/IV Q3H PRN PRN Reason: Itching Diphenhydramine HCl (Benadryl) 25 mg PO Q3H PRN PRN Reason: Itching Last Admin: 01/17/18 03:54 Dose: 25 mg Enoxaparin Sodium (Lovenox) 40 mg SC [facility] Last Admin: 01/17/18 09:06 Dose: 40 mg Glucagon (Glucagon) 1 mg IM PRN PRN PRN Reason: Hypoglycemia Hydralazine HCl (Apresoline) 10 mg SLOW IVP Q4H PRN PRN Reason: SBP > 170 or DBP > 100 Potassium Chloride/Dextrose/Sod Cl (D5 1/2 Ns W/20 Meq Kcl) 1,000 mls @ 110 mls /hr IV .Q9H6M [facility] Last Admin: 01/17/18 07:28 Dose: 1,000 mls Dextrose/Water (D5w) 1,000 mls @ 0 mls/hr IV .Q0M PRN; As Directed PRN Reason: Hypoglycemia Cefepime HCl 2 gm/ Sodium (Chloride) 100 mls @ 200 mls/hr IVPB 0400,1600 [facility] Last Admin: 01/17/18 03:54 Dose: 100 mls Metronidazole 500 mg/ Device 100 mls @ 100 mls/hr IVPB Q6HR [facility] Last Admin: 01/17/18 07:22 Dose: 100 mls Acetaminophen 1,000 mg/ Device 100 mls @ 400 mls/hr IVPB Q6H PRN PRN Reason: Fever/Mild Pain Stop: 01/17/18 15:35 Last Admin: 01/16/18 16:06 Dose: 100 mls Fluconazole/Sodium Chloride (200 mg/ Device) 100 mls @ 100 mls/hr IVPB DAILY [facility] Last Admin: 01/17/18 09:05 Dose: 100 mls Naloxone HCl (Narcan) 0.2 mg IV Q5MIN PRN PRN Reason: RR <8 or pt obtun/unarousable Ondansetron HCl (Zofran Odt) 4 mg PO Q6H PRN PRN Reason: Nausea/Vomiting Last Admin: 01/16/18 02:24 Dose: 4 mg Ondansetron HCl (Zofran) 4 mg IVP Q6H PRN PRN Reason: Nausea Pantoprazole Sodium (Protonix) 40 mg IVP DAILY [facility] Last Admin: 01/17/18 09:07 Dose: 40 mg Promethazine HCl (Phenergan) 12.5 mg IM Q4H PRN PRN Reason: Nausea Last Admin: 01/15/18 00:05 Dose: 12.5 mg Sodium Chloride (Flush - Normal Saline) 10 ml IVF PRN PRN PRN Reason: Saline Flush Last Admin: 01/14/18 08:03 Dose: 10 ml Tramadol HCl (Ultram) 50 mg PO Q6H PRN PRN Reason: Mild Pain (1-4) Tramadol HCl (Ultram) 100 mg PO Q6H PRN PRN Reason: Moderate Pain 5-10 Zolpidem Tartrate (Ambien) 5 mg PO HSPRN PRN PRN Reason: Insomnia
--- NOTE | 2018-01-17 13:07 | PDOC.GSPN ---
Surgery Progress Note: Subj - Subjective Narrative: Fever yesterday. Less tachycardic this am but not in the 120's. Tolerating liquids. No nausea. Having loose stools. Surgery Progress Note: Obj - Vital signs Vital signs: Vital Signs - Most Recent Temp Pulse Resp BP Pulse Ox 100 F H 120 H 20 106/71 93 L 01/17/18 11:55 01/17/18 11:55 01/17/18 11:55 01/17/18 11:55 01/17/18 11:55 - Physical Exam General: no distress Cardiovascular: other (Increased rate, regular rhythm) Surgery Progress Note: Results - Labs Result Diagrams: 01/17/18 04:56 01/17/18 04:56 Lab results: Laboratory Results - last 24 hr 01/14/18 01/17/18 01/17/18 21:17 04:56 04:56 WBC 10.8 RBC 2.95 L Hgb 7.7 L Hct 23.1 L MCV 78.4 L MCH 26.0 L MCHC 33.2 RDW 21.5 H Plt Count 238 MPV 11.1 H Neutrophils % 82.8 H Lymphocytes % 8.6 L Monocytes % 7.8 Eosinophils % 0.8 Basophils % 0.1 Neutrophils # 9.0 H Lymphocytes # 0.9 L Monocytes # 0.9 H Eosinophils # 0.1 Basophils # 0.0 Sodium 137 Potassium 4.1 Chloride 106 Carbon Dioxide 27 Anion Gap 8 L BUN 6 L Creatinine 0.73 Estimated GFR (MDRD) Greater than 90 Glucose 107 H Calcium 8.3 Cortisol Transfuse React Work-up SEE COMMENT 01/17/18 07:52 WBC RBC Hgb Hct MCV MCH MCHC RDW Plt Count MPV Neutrophils % Lymphocytes % Monocytes % Eosinophils % Basophils % Neutrophils # Lymphocytes # Monocytes # Eosinophils # Basophils # Sodium Potassium Chloride Carbon Dioxide Anion Gap BUN Creatinine Estimated GFR (MDRD) Glucose Calcium Cortisol 16.50 Transfuse React Work-up Surgery Progress Note: A/P - Problem (1) Bile leak, postoperative Current Visit: Yes Code(s): K91.89 - OTH POSTPROCEDURAL COMPLICATIONS AND DISORDERS OF DGSTV SYS; K83.8 - OTHER SPECIFIED DISEASES OF BILIARY TRACT Status: Acute - Plan Plan: Her drain output is minimal. Repeat CT shows improvement in fluid. No abscess. Blood cultures negative. Bile culture shows yeast. Cultures otherwise negative. Cortisol 16. ?Adrenal insufficiency. Uncertain of the etiology of her continue tachycardia. Her hgb is chronically low. Blood transfusions have been given but then hgb back in 7's after a few days. I do not think she needs any more transfusions. Will discuss with emissions engineer.
[2018-01-17] MEDS ORDERED: D5 1/2 NS w/20 mEq KCL 1,000 ML IV SCH (14:44)
[2018-01-17] MEDS ORDERED: Hydrocortisone Sod Succ/PF 100 mg/2 ml Vial IVP SCH (15:00)
--- NOTE | 2018-01-17 16:46 | SPC ---
ULTRASOUND GUIDED AND FLUOROSCOPIC GUIDED LEFT UPPER EXTREMITY PICC PLACEMENT: 01/17/2018 HISTORY: Peritonitis and abdominal infection, in need of IV antibiotics. FINDINGS: Informed consent was obtained prior to the procedure. The left antecubital fossa was prepped and draped in the normal sterile fashion. The skin overlying the left basilic vein was anesthetized with 1% buffered Lidocaine. With direct sonographic guidance. Vascular access was obtained via the left basilic vein, and an 0.018 wire was advanced to the IVC a nd subsequently retracted to the cavoatrial junction. Intravascular length was calculated at 42 cm, and the PICC was cut accordingly. The needle was removed and replaced with a peel-away sheath. The PICC was advanced over the wire. The wire and peel-away sheath were removed. The tip of the cathete r overlies the cavoatrial junction. The catheter flushes well and is ready for use. EXPOSURE DATA: 0.1 minutes of fluoroscopic time 1212 mGy per cm2 IMPRESSION: Successful left upper extremity peripherally inserted central catheter placement with sonographic and fluoroscopic guidance. POS: [facility]
[2018-01-17] MEDS: Hydrocortisone Sod Succ/PF 100 mg/2 ml Vial IVP SCH (23:07)
[2018-01-18] MEDS: Cefepime 2 GM in Sodium Chloride 0.9% 100 ML IVPB SCH ×2 (03:10→18:41)
[2018-01-18 04:20] LABS: #Lymphocytes 0.6 thou/uL (1.20-3.40); #Monocytes 0.4 thou/uL (0.11-0.59); #Neutrophils 10.1 thou/uL (1.40-6.50); %Basophils 0.2 % (0.0-1.0); %Eosinophils 0.2 % (0.0-10.0); %Lymphocytes 5.4 % (21.0-51.0); %Monocytes 3.5 % (0.0-10.0); %Neutrophils 90.7 % (42.0-75.0); Hemoglobin 7.8 g/dL (12.0-16.0); Mean Corpuscular HGB CONC 32.8 g/dL (32.0-36.0); Mean Corpuscular Hemoglobin 25.8 pg (27.0-31.0); Mean Corpuscular Volume 78.6 fl (81.0-99.0); Mean Platelet Volume 8.2 fL (7.4-10.4); Platelet Count 240 thou/uL (130-400); RBC Distribution Width 21.6 % (11.5-14.5); Red Blood Cell (RBC) Count 3.01 mill/uL (4.20-5.40); White Blood Cell (WBC) Count 11.2 thou/uL (4.8-10.8)
[2018-01-18 04:24] LABS: Anion Gap 8 mmol/L (10-20); BUN (Urea Nitrogen) 6 mg/dL (7.0-18.7); Calc. Creatinine Clearance 197 mL/min (70-130); Calcium 8.3 mg/dL (7.8-10.44); Carbon Dioxide 29 mmol/L (22-29); Chloride 104 mmol/L (98-107); Estimated GFR-MDRD Greater than 90; Glucose 150 mg/dL (70-105); Potassium 4.3 mmol/L (3.5-5.1); Sodium 137 mmol/L (136-145)
[2018-01-18] MEDS: metroNIDAZOLE 500 MG in Premix Bag 1 BAG IVPB SCH ×4 (06:17→23:59)
[2018-01-18] MEDS: HYDROcodone/Acetaminophen 10/325 mg Tablet PO PRN ×3 (07:53→20:35)
[2018-01-18] MEDS: Hydrocortisone Sod Succ/PF 100 mg/2 ml Vial IVP SCH ×3 (07:53→23:58)
[2018-01-18] MEDS: Pantoprazole 40 MG VIAL IVP SCH (09:35)
[2018-01-18] MEDS: Fluconazole In NaCl,Iso-Osm 200 MG in Premix Bag 1 BAG IVPB SCH (09:35)
[2018-01-18] MEDS: Enoxaparin Sodium 40 MG/0.4 ML SYRINGE SC SCH (09:35)
--- NOTE | 2018-01-18 11:49 | PDOC.GSPN ---
Surgery Progress Note: Subj - Subjective Patient reports: no new complaints Narrative: She is tolerating more regular food this morning. Only walked twice yesterday. Still having loose stools Surgery Progress Note: Obj - Vital signs Vital signs: Vital Signs - Most Recent Temp Pulse Resp BP Pulse Ox 99.5 F 107 H 18 140/85 95 01/18/18 10:05 01/18/18 10:05 01/18/18 10:05 01/18/18 08:00 01/18/18 08:00 - Physical Exam General: no distress Cardiovascular: regular rate and rhythm Respiratory: clear to auscultation Abdomen: soft, non tender, nondistended Wound: healing well (JOEL: cloudy serous fluid) Surgery Progress Note: Results - Labs Result Diagrams: 01/18/18 03:30 01/18/18 03:30 Lab results: Laboratory Results - last 24 hr 01/18/18 01/18/18 01/18/18 03:30 03:30 03:30 WBC 11.2 H RBC 3.01 L Hgb 7.8 L Hct 23.7 L MCV 78.6 L MCH 25.8 L MCHC 32.8 RDW 21.6 H Plt Count 240 MPV 8.2 Neutrophils % 90.7 H Neutrophils % (Manual) Not Reportable Lymphocytes % 5.4 L Monocytes % 3.5 Eosinophils % 0.2 Basophils % 0.2 Neutrophils # 10.1 H Lymphocytes # 0.6 L Monocytes # 0.4 Eosinophils # 0.0 Basophils # 0.0 Sodium 137 Potassium 4.3 Chloride 104 Carbon Dioxide 29 Anion Gap 8 L BUN 6 L Creatinine 0.70 Estimated GFR (MDRD) Greater than 90 Glucose 150 H Calcium 8.3 TSH 3rd Generation 2.6146 Surgery Progress Note: A/P - Problem (1) Bile leak, postoperative Current Visit: Yes Code(s): K91.89 - OTH POSTPROCEDURAL COMPLICATIONS AND DISORDERS OF DGSTV SYS; K83.8 - OTHER SPECIFIED DISEASES OF BILIARY TRACT Status: Acute Assessment and Plan: Free air but negative laparotomy now drain output down. Started steroids yesterday.
[2018-01-18 13:17] LABS: Hemoglobin 8.7 g/dL (12.0-16.0); Mean Corpuscular HGB CONC 32.8 g/dL (32.0-36.0); Mean Corpuscular Hemoglobin 25.4 pg (27.0-31.0); Mean Corpuscular Volume 77.4 fl (81.0-99.0); Mean Platelet Volume 10.8 fL (7.4-10.4); Platelet Count 308 thou/uL (130-400); RBC Distribution Width 21.6 % (11.5-14.5); Red Blood Cell (RBC) Count 3.41 mill/uL (4.20-5.40); White Blood Cell (WBC) Count 16.2 thou/uL (4.8-10.8)
[2018-01-18 13:51] LABS: Anisocytosis MODERATE=16-30 cells (100X) (0-5/hpf); Band 5 % (5-11); Hypochromia SLIGHT = 6-15 cells (100X) (0-5/hpf); Large Platelets SLIGHT; Lymphocytes 4 % (21-51); MDiff Complete? YES; Microcytosis SLIGHT = 6-15 cells (100X) (0-5/hpf); Monocytes 3 % (0-10); Neutrophil 88 % (42-75); Nucleated RBC 1 % (0); Ovalocytes SLIGHT = 2-5 cells (100X) (0-1/hpf); PLT Morphology Comment Appears Adequate; Polychromasia SLIGHT = 2-3 cells (100X) (0-2/hpf); Schistocytes SLIGHT = 2-5 cells (100X) (0-1/hpf); Target Cells SLIGHT = 2-5 cells (100X) (0-1/hpf); Tear Drops SLIGHT = 2-5 cells (100X) (0-1/hpf)
[2018-01-18 15:24] LABS: Hemoglobin A 43.6 % (96.4-98.8); Hemoglobin A2 3.3 % (1.8-3.2); Hemoglobin F 1.3 % (0.0-2.0); Hemoglobin S 26.9 % (0.0); Hemoglonin C Window 24.9 % (0.0); Interpretation Note: (.)
--- NOTE | 2018-01-18 16:16 | PDOC.PN ---
- Subjective Encounter Start Date: 01/18/18 Encounter Start Time: 16:14 Ms. Lamb was seen today in follow-up. She is feeling a bit better. She denies feeling short of breath, unless she ambulates in the halls. She notes a little abdominal soreness after coughing. - Objective MAR Reviewed: Yes Vital Signs & Weight: Vital Signs (12 hours) Temp Pulse Resp BP Pulse Ox 01/18/18 10:05 99.5 F 107 H 18 01/18/18 08:00 99.5 F 107 H 18 140/85 95 Weight Admit Weight 250 lb Weight 250 lb I&O: 01/17/18 01/18/18 01/19/18 06:59 06:59 06:59 Intake Total 4680 3660 Output Total 2765 9200 825 Balance 1915 -2140 -825 Result Diagrams: 01/18/18 12:59 01/18/18 03:30 Phys Exam - Physical Examination HEENT: PERRLA Respiratory: no wheezing, no rales, no rhonchi, clear to auscultation bilateral Cardiovascular: RRR, no significant murmur, no rub Gastrointestinal: soft + mild tenderness , no rebound or guarding Musculoskeletal: edema present Dx/Plan (1) Sickle cell disease, type SC Code(s): D57.20 - SICKLE-CELL/HB-C DISEASE WITHOUT CRISIS Status: Acute (2) Pneumoperitoneum Code(s): K66.8 - OTHER SPECIFIED DISORDERS OF PERITONEUM Status: Acute (3) S/P laparotomy Status: Acute (4) Pneumonia Code(s): J18.9 - PNEUMONIA, UNSPECIFIED ORGANISM Status: Acute - Plan * Pneumonia- RLL- possibly aspiration vs. HAP- continue Cefepime and Flagyl * Tachycardia- ? possibly due to above- her heart rate is trending down, will continue to monitor * Continue to encourage ambulation * Anemia- likely from Sickle Cell SC- her hgb is at 8.7 today- will monitor- she had a reaction to her last transfusion- so will avoid transfusions unless absolutely necessary * Continue post-op care as per General Surgery - advance her diet as tolerated.
[2018-01-19] MEDS: Cefepime 2 GM in Sodium Chloride 0.9% 100 ML IVPB SCH ×2 (03:54→16:50)
[2018-01-19 04:12] LABS: #Lymphocytes 0.9 thou/uL (1.20-3.40); #Monocytes 0.6 thou/uL (0.11-0.59); #Neutrophils 11.5 thou/uL (1.40-6.50); %Eosinophils 0.2 % (0.0-10.0); %Lymphocytes 7.2 % (21.0-51.0); %Monocytes 4.4 % (0.0-10.0); %Neutrophils 88.2 % (42.0-75.0); Hemoglobin 7.7 g/dL (12.0-16.0); Mean Corpuscular HGB CONC 33.3 g/dL (32.0-36.0); Mean Corpuscular Hemoglobin 25.7 pg (27.0-31.0); Mean Corpuscular Volume 77.3 fl (81.0-99.0); Mean Platelet Volume 10.6 fL (7.4-10.4); Platelet Count 255 thou/uL (130-400); RBC Distribution Width 21.2 % (11.5-14.5); Red Blood Cell (RBC) Count 2.98 mill/uL (4.20-5.40)
[2018-01-19] MEDS: metroNIDAZOLE 500 MG in Premix Bag 1 BAG IVPB SCH ×3 (05:53→17:49)
[2018-01-19] MEDS: Enoxaparin Sodium 40 MG/0.4 ML SYRINGE SC SCH (08:51)
[2018-01-19] MEDS: Pantoprazole 40 MG VIAL IVP SCH (08:51)
[2018-01-19] MEDS: Hydrocortisone Sod Succ/PF 100 mg/2 ml Vial IVP SCH ×2 (08:51→16:51)
[2018-01-19] MEDS: Fluconazole In NaCl,Iso-Osm 200 MG in Premix Bag 1 BAG IVPB SCH (08:51)
[2018-01-19] MEDS: HYDROcodone/Acetaminophen 10/325 mg Tablet PO PRN ×2 (10:08→17:53)
[2018-01-19] MEDS ORDERED: Sodium Chloride 0.9% 1,000 ML IV SCH (12:15)
--- NOTE | 2018-01-19 12:18 | PDOC.PN ---
- Subjective Encounter Start Date: 01/19/18 Encounter Start Time: 12:16 Ms. Lamb was seen today in follow-up of bilateral leg pain. She says she noted severe pain in her lower extremities. She says it was shooting from the groin to her ankles. She siad she could barely walk as a result. She remembers having a similar pain when she was a little girl, and it was due to a sickle cell crisis. - Objective MAR Reviewed: Yes Vital Signs & Weight: Vital Signs (12 hours) Temp Pulse Resp BP Pulse Ox 01/19/18 07:53 98.2 F 92 18 172/100 H 98 01/19/18 04:21 97.6 F 85 16 124/83 96 01/19/18 04:00 97.6 F 85 16 01/19/18 00:21 98.1 F 98 16 144/70 H 95 Weight Admit Weight 250 lb Weight 250 lb I&O: 01/18/18 01/19/18 01/20/18 06:59 06:59 06:59 Intake Total 3660 3150 Output Total 5800 2265 Balance -2140 885 Result Diagrams: 01/19/18 03:50 01/18/18 03:30 Phys Exam - Physical Examination HEENT: PERRLA Respiratory: no wheezing, no rales, no rhonchi, clear to auscultation bilateral Cardiovascular: RRR, no rub + systolic murmur Gastrointestinal: soft, positive bowel sounds Musculoskeletal: no edema good d.p. pulses bilaterally, no warmth or redness negative stright leg raises, no paraspinous tenderness Dx/Plan (1) Sickle cell crisis Code(s): D57.00 - HB-SS DISEASE WITH CRISIS, UNSPECIFIED Status: Acute (2) Sickle cell disease, type SC Code(s): D57.20 - SICKLE-CELL/HB-C DISEASE WITHOUT CRISIS Status: Acute (3) Pneumoperitoneum Code(s): K66.8 - OTHER SPECIFIED DISORDERS OF PERITONEUM Status: Acute (4) S/P laparotomy Status: Acute (5) Pneumonia Code(s): J18.9 - PNEUMONIA, UNSPECIFIED ORGANISM Status: Acute - Plan * Sickle Cell Crisis- will give her some fluids IV, and continue Mercer- which has resolved the pain * Will monitor her H&H and retic count * I suspect the recent surgery, and Pneumonia has precipitated the crisis * Tachycardia- this has improved- likely as a result of treatment of Pneumonia * Bile Peritonitis- continue as per General Surgery .
--- NOTE | 2018-01-19 14:11 | PDOC.GSPN ---
Surgery Progress Note: Subj - Subjective Patient reports: no new complaints (Still having loose stools), tolerating a regular diet Surgery Progress Note: Obj - Vital signs Vital signs: Vital Signs - Most Recent Temp Pulse Resp BP Pulse Ox 98.7 F 91 16 134/88 96 01/19/18 11:36 01/19/18 11:36 01/19/18 11:36 01/19/18 11:36 01/19/18 11:36 - Physical Exam General: no distress Cardiovascular: regular rate and rhythm Respiratory: clear to auscultation Abdomen: soft, non tender, nondistended Wound: healing well Surgery Progress Note: Results - Labs Result Diagrams: 01/19/18 03:50 01/18/18 03:30 Lab results: Laboratory Results - last 24 hr 01/19/18 03:50 WBC 13.0 H RBC 2.98 L Hgb 7.7 L Hct 23.0 L MCV 77.3 L MCH 25.7 L MCHC 33.3 RDW 21.2 H Plt Count 255 MPV 10.6 H Neutrophils % 88.2 H Neutrophils % (Manual) Not Reportable Lymphocytes % 7.2 L Monocytes % 4.4 Eosinophils % 0.2 Basophils % 0.0 Neutrophils # 11.5 H Lymphocytes # 0.9 L Monocytes # 0.6 H Eosinophils # 0.0 Basophils # 0.0 Surgery Progress Note: A/P - Problem (1) Bile leak, postoperative Current Visit: Yes Code(s): K91.89 - OTH POSTPROCEDURAL COMPLICATIONS AND DISORDERS OF DGSTV SYS; K83.8 - OTHER SPECIFIED DISEASES OF BILIARY TRACT Status: Acute Assessment and Plan: Doing better. Tachycardia has resolved. Complaining of tingling in lower extremities. Unsure of significance. No motor sensory loss. Now tolerating regular diet although in small amounts. Cdiff negative. Probably ready for DC tomorrow.
[2018-01-20] MEDS: metroNIDAZOLE 500 MG in Premix Bag 1 BAG IVPB SCH ×2 (00:02→05:30)
[2018-01-20] MEDS: Hydrocortisone Sod Succ/PF 100 mg/2 ml Vial IVP SCH ×2 (00:02→08:34)
[2018-01-20] MEDS: HYDROcodone/Acetaminophen 10/325 mg Tablet PO PRN ×3 (00:05→14:22)
[2018-01-20] MEDS: Cefepime 2 GM in Sodium Chloride 0.9% 100 ML IVPB SCH (04:19)
[2018-01-20 06:06] LABS: #Lymphocytes 1.4 thou/uL (1.20-3.40); #Monocytes 0.8 thou/uL (0.11-0.59); #Neutrophils 11.6 thou/uL (1.40-6.50); %Basophils 0.1 % (0.0-1.0); %Eosinophils 0.3 % (0.0-10.0); %Lymphocytes 10.2 % (21.0-51.0); %Monocytes 5.6 % (0.0-10.0); %Neutrophils 83.8 % (42.0-75.0); Hemoglobin 7.8 g/dL (12.0-16.0); Mean Corpuscular HGB CONC 33.7 g/dL (32.0-36.0); Mean Corpuscular Hemoglobin 25.8 pg (27.0-31.0); Mean Corpuscular Volume 76.4 fl (81.0-99.0); Mean Platelet Volume 10.8 fL (7.4-10.4); Platelet Count 283 thou/uL (130-400); RBC Distribution Width 21.4 % (11.5-14.5); Red Blood Cell (RBC) Count 3.03 mill/uL (4.20-5.40); White Blood Cell (WBC) Count 13.8 thou/uL (4.8-10.8)
[2018-01-20 06:13] LABS: Reticulocyte Count 2.7 % (0.5-1.5)
[2018-01-20] MEDS ORDERED: Ferrous Sulfate 325 MG TAB PO SCH (08:00)
[2018-01-20] MEDS: Enoxaparin Sodium 40 MG/0.4 ML SYRINGE SC SCH (08:33)
[2018-01-20] MEDS: Pantoprazole 40 MG VIAL IVP SCH (08:34)
[2018-01-20] MEDS: Fluconazole In NaCl,Iso-Osm 200 MG in Premix Bag 1 BAG IVPB SCH (08:35)
[2018-01-20] MEDS ORDERED: Folic Acid 1 MG TAB PO SCH (09:00)
[2018-01-20 15:38] VITALS: BP 143/89; TEMP 98.2
--- NOTE | 2018-01-21 00:49 | DIS ---
DATE OF ADMISSION: 01/13/2018 DATE OF DISCHARGE: 01/20/2018 DISCHARGE DISPOSITION: Home. PRIMARY CARE PHYSICIAN: Lisa Dhillon PA-C DISCHARGE MEDICATIONS: Include [place] 5/325 q.6 hours as needed and Zofran 4 mg q.6 hours as needed. CODE STATUS: FULL CODE. ALLERGIES: PENICILLIN. PROCEDURES DONE DURING ADMISSION: The patient had a CT scan of the abdomen and pelvis, which there w as noted to be an inner development of free air in the abdomen to suggest bowel perforation. There i s some ascites and splenomegaly, bilateral atelectasis and some trace pleural effusion. The patient also had an exploratory laparotomy with abdominal washout, had an upper GI showing no evidence of iván k demonstrated that the duodenal C-loop, the contrast passed through this area without any difficulty . The patient had a repeat CT scan of the abdomen and pelvis demonstrated reduction in the amount of free peritoneal fluid. There was some fluid in the mid abdomen, does not appear to be loculated or encapsulated. There is bibasilar atelectasis and consolidation and some diffuse adipose haziness whi ch could represent edema. HOSPITAL COURSE: Ms. Lamb is a very pleasant 37-year-old female who was admitted to the surgical service under Dr. Grover. She had presented to the emergency room with complaints of abdominal pain and distention. She had recently undergone a laparoscopic cholecystectomy. When she was in the ER, CT scan was concerning for possible free air and pneumoperitoneum. She was admitted and started emp irically on antibiotics and she went for urgent exploratory laparotomy. There was no evidence to sug gest a source of the free air and the patient had an upper GI series which did not demonstrate any le ak and she also had a hepatobiliary scan which was negative for any evidence of leak as well. Cultur es from the peritoneal fluid grew out Kim and she was placed on an antifungal in addition to the broad spectrum antibiotics. Her hospital course was complicated by some tachycardia which is likely the result of the pneumonia and this was found by a chest x-ray. Antibiotics were broadened and she improved. She also had a mild sickle cell crisis which did not require transfusion. However, to not e she was transfused prior to the crisis for a drop in her H&H. At the time of discharge, she was sy mptomatically improved, tolerating a solid diet. Her heart rate had normalized and she was not exper iencing any somatic pain and is being discharged for close outpatient followup.
== END 2018-01-20 16:36 | disposition home or self-care (01) | DRG 356 ==
LOC: ERS 16:11 → SURG B 22:42 → SDC/OP 22:42 → SURG B 01-13 00:52
PROVIDERS: ADMIT Surgery; ATTEND Surgery
PROC: 0W9G00Z Drainage of Peritoneal Cavity with Drainage Device, Open Approach (ICD-10-PCS; principal; 2018-01-12)
PROC: 3E1M38X Irrigation of Peritoneal Cavity using Irrigating Substance, Percutaneous Approach, Diagnostic (ICD-10-PCS; 2018-01-12)
PROC: 02HV33Z Insertion of Infusion Device into Superior Vena Cava, Percutaneous Approach (ICD-10-PCS; 2018-01-17)
PROC: B548ZZA Ultrasonography of Superior Vena Cava, Guidance (ICD-10-PCS; 2018-01-17)
DX: K91.89 Other postprocedural complications and disorders of digestive system (principal); J18.9 Pneumonia, unspecified organism; D57.00 Hb-SS disease with crisis, unspecified; Z68.41 Body mass index [BMI] 40.0-44.9, adult; K66.8 Other specified disorders of peritoneum; Y83.8 Other surgical procedures as the cause of abnormal reaction of the patient, or of later complication, without mention of misadventure at the time of the procedure; Y92.89 Other specified places as the place of occurrence of the external cause; D64.9 Anemia, unspecified; E66.01 Morbid (severe) obesity due to excess calories; Z90.49 Acquired absence of other specified parts of digestive tract; E87.6 Hypokalemia; Z88.0 Allergy status to penicillin; Z90.710 Acquired absence of both cervix and uterus; B37.9 Candidiasis, unspecified; R00.0 Tachycardia, unspecified; K83.8 Other specified diseases of biliary tract
CPT/HCPCS: 36415; 36430; 36569; 71045; 71046; 74177; 74241; 78226; 80048; 80053; 81003; 81015; 82533; 82550; 82607; 82728; 83021; 83540; 83550; 83605; 83690; 83880; 84425; 84443; 85025; 85046; 85060; 86850; 86900; 86901; 86922; 87040; 87070; 87086; 87205; 87324; 87449; 96374; A9537; C9113; J0131; J0692; J1170; J1450; J1650; J1720; J1885; J1956; J2001; J2250; J2274; J2405; J2550; J2704; J2930; J3010; J3480; J7050; P9016; Q0162

== ENCOUNTER 2018-03-08 06:00 | Day surgery (SDC) | payer BC ==
[2018-03-07 10:47] VITALS: BMI 36.8
[2018-03-08] MEDS ORDERED: Iothalamate Meglumine 60% 50 ML VIAL FS ONE (07:11)
[2018-03-08] MEDS ORDERED: Levofloxacin 500 mg/D5W 100 ml Premix Bag ONE (07:44)
[2018-03-08] MEDS ORDERED: Midazolam HCl 2 mg/2 ml Vial ONE (07:58)
[2018-03-08] MEDS ORDERED: Fentanyl 100 MCG/2 ML VIAL ONE (08:00)
[2018-03-08] MEDS ORDERED: Indomethacin 50 MG SUPP ONE (08:27)
--- NOTE | 2018-03-08 10:47 | RAD ---
ERCP INTRAOPERATIVE FLUOROSCOPY: Date: 03/08/18 HISTORY: Bile leak. FINDINGS/IMPRESSION: Intraoperative fluoroscopy was provided for ERCP as performed by Dr. Blakely. Two spot fluoroscopic imag es show catheterization and opacification of a nondilated biliary system. Metallic clips overlie the gallbladder fossa. Irregular, somewhat linear contrast projects over the central aspect of the cystic duct remnant. Correlation with real-time fluoroscopy findings is required regarding the possibility of a leak. POS: BALTAZAR
--- NOTE | 2018-03-08 13:16 | OP ---
GI ENDOSCOPY NOTE DATE OF PROCEDURE: 03/08/2018 SURGEON: Zay Blakely M.D. IRRIGATION TAX ASSESSOR COLLECTOR SURGEON: None. PROCEDURE: ERCP with biliary stent removal, and gastric biopsies. INDICATION: This is a 37-year-old woman with a history of postoperative bile leak after cholecystect katelin. She underwent ERCP with biliary sphincterotomy and biliary stent placement on 12/31/2017. With clinical resolution of her bile leak, her JOEL drain was recently removed. She presents today for a r epeat ERCP with biliary stent removal. MEDICATIONS: 1. See anesthesia record. 2. Indomethacin 100 mg per rectum. FINDINGS: After discussion of the risks, benefits, and alternatives of the procedure, informed conse nt was obtained and witnessed. Pre-endoscopic cardiopulmonary examination was satisfactory. Timeout was performed before sedation was achieved. Sedation was achieved with Anesthesia assistance in the endoscopy unit. The patient was placed in the semi-prone position on the fluoroscopy table. A Pent ax adult side-viewing duodenoscope was inserted into the mouth and passed forward beyond the esophagu s and into the stomach. On indirect views of the stomach, the patient was noted to have a small, but raised and cratered ulceration on the anterior wall of the stomach in the distal body. There was so me surrounding erythema and a few small erosions in the area. Biopsies were obtained from this gastr ic ulcer for pathology and to rule out H. pylori infection. The duodenoscope was advanced beyond the pylorus and the ampulla was brought into view with the endoscope in the long position. The patient' s previously placed plastic biliary stent was noted to be in good position. There was free flow of b ile both through the stent and around that the biliary stent. Using a triple-lumen dome tip sphincte rotome, I was able to cannulate the stent and a cholangiogram was performed through the stent. On cholangiogram, the common bile duct appeared normal. I was able to get the left intrahepatic ducts to fill and these appeared normal. However, due to easy flow of bile out of the stent, I was not ab le to get the cystic duct with the right intrahepatic system to fill. Certainly, there was no persis tent leak visualized. At this point, the decision was made to remove the biliary stent, which was pe rformed using a wire snare. After the stent was removed, the endoscope was passed back down into the duodenum and using a triple-lumen dome tip sphincterotome and 0.035 guidewire, the common bile duct was selectively cannulated. The wire was passed up into the left intrahepatic system. Repeat cholan giogram was then performed. On repeat cholangiogram, I was able to get the cystic duct to fill. The re was no evidence of any persistent leak from the cystic duct stump, which was the site of her prior visualized leak. Due to easy flow of bile out of the ampullary area, I still was not able to get th e right intrahepatic system to fill, but again certainly no leak was visualized. At this point, the working apparatus was removed. The endoscope was slowly withdrawn suctioning out excess air and flui d, and the procedure was complete. Post-procedure fluoroscopic images demonstrated no retroperitonea l or subdiaphragmatic free air. The patient tolerated the procedure well. There were no immediate p ost-procedure complications. IMPRESSION: 1. No evidence of persistent bile leak. There was good flow of bile from the ampulla. A poor filli ng of the right intrahepatic ducts, but cholangiogram otherwise normal. 2. Successful biliary stent removal. 3. Single clean-based gastric ulcer on the anterior wall in the distal body of the stomach. Biopsie d. RECOMMENDATIONS: 1. Follow up in clinic in 2 weeks with preclinic LFTs. 2. We will send in a prescription for Dexilant 60 mg daily. 3. Follow up pathology on the gastric ulcer biopsies. 4. Advance diet as tolerated. 5. Follow up with Dr. Grover as planned.
[2018-03-08] MEDS ORDERED: PHENYLEPHRINE-NS 100 MCG/ML 10 ML SYRINGE ONE (13:22)
[2018-03-08] MEDS ORDERED: Glycopyrrolate 0.2 MG/ML 5 ML SYRINGE ONE (13:22)
[2018-03-08] MEDS ORDERED: PROPOFOL 200 MG/20 ML VIAL ONE (13:22)
[2018-03-08] MEDS ORDERED: Ketorolac Tromethamine 30 MG/ML VIAL ONE (13:22)
[2018-03-08] MEDS ORDERED: Dexamethasone 20 MG/5 ML VIAL ONE (13:22)
[2018-03-08] MEDS ORDERED: Ondansetron HCl/PF 4 MG/2 ML Vial ONE (13:22)
[2018-03-08] MEDS ORDERED: Lidocaine 1% PF 5 ML VIAL ONE (13:22)
== END 2018-03-08 11:00 | disposition home or self-care (01) ==
LOC: SDC 06:00
PROVIDERS: ATTEND Internal Medicine
PROC: 0FPB8DZ Removal of Intraluminal Device from Hepatobiliary Duct, Via Natural or Artificial Opening Endoscopic (ICD-10-PCS; principal; 2018-03-08)
PROC: 0DB78ZX Excision of Stomach, Pylorus, Via Natural or Artificial Opening Endoscopic, Diagnostic (ICD-10-PCS; principal; 2018-03-08)
DX: K31.89 Other diseases of stomach and duodenum (principal); K25.9 Gastric ulcer, unspecified as acute or chronic, without hemorrhage or perforation; Z79.899 Other long term (current) drug therapy; Z88.0 Allergy status to penicillin; Z98.890 Other specified postprocedural states
CPT/HCPCS: 74330; 88305; 88312; 88342; J0131; J1100; J1885; J1956; J2001; J2250; J2405; J2704; J3010; Q9961

== ENCOUNTER 2020-05-09 07:21 | Outpatient (CLI) | payer BC, OTHER ==
[2020-05-09 14:07] LABS: Hemoglobin 9.9 g/dL (12.0-16.0); Mean Corpuscular HGB CONC 34.4 g/dL (32.0-36.0); Mean Corpuscular Hemoglobin 26.8 pg (27.0-31.0); Mean Corpuscular Volume 77.7 fL (78.0-98.0); Mean Platelet Volume 11.2 fL (7.4-10.4); Platelet Count 153 thou/uL (130-400); Red Blood Cell (RBC) Count 3.71 mill/uL (4.20-5.40)
[2020-05-09 14:16] LABS: BHCG - Serum Negative (NEGATIVE); Pregs Control Background? CLEAR/WHITE (CLR/WHITE); Pregs Control Bar Appear? YES (CONTROL BAR)
[2020-05-10 12:00] LABS: SARS-CoV-2 MS2 Positive; SARS-CoV-2 N Gene Negative; SARS-CoV-2 S Gene Negative; SARS-CoV-2 by NAA Not Detected (NotDetected); SARS-CoV-2 orf1ab Negative
== END 2020-05-09 07:22 | disposition home or self-care (01) ==
LOC: LABBT 07:21
PROVIDERS: ATTEND Obstetrics & Gynecology
DX: Z01.812 Encounter for preprocedural laboratory examination (principal); Z20.828 Contact with and (suspected) exposure to other viral communicable diseases; N92.0 Excessive and frequent menstruation with regular cycle; N70.11 Chronic salpingitis
CPT/HCPCS: 84703; 85027; 86850; 86900; 86901; 87635; U0003

== ENCOUNTER 2020-05-13 08:27 | Day surgery (SDC) | payer BC ==
--- NOTE | 2020-05-09 13:36 | HP ---
Her date of surgery is scheduled for 05/13. HISTORY OF PRESENT ILLNESS: Ms. Lamb is a 39-year-old female with previous robotic TLH, who has been having increasing amounts of pelvic pain, especially dyspareunia. She has occasional spotting associated with this. She did undergo a pelvic ultrasound for evaluation, is noted to have a 5-cm adnexal cyst at the vaginal cuff line. Clinically, she is very tender at the vaginal cuff line. This corresponds with her clinical complaints. She is to undergo surgical resection of the cyst. PAST MEDICAL HISTORY: She has SC disease and reflux. PAST SURGICAL HISTORY: Gallbladder, cholecystectomy on 01/04/2018, and a robotic hysterectomy on 04/06/2013. CURRENT MEDICATIONS: None. SOCIAL HISTORY: She is a nonsmoker. No excessive alcohol use. OB HISTORY: She had two spontaneous vaginal deliveries. G2, P2. PHYSICAL EXAMINATION: VITAL SIGNS: Height 5 feet and 7 inches, weight 252, and BMI 39.5. Blood pressure 130/84, pulse 66, respirations 18, and O2 saturation on room air 97%. HEENT: Within normal limits. CHEST: Clear to auscultation. HEART: Regular rate and rhythm. S1 and S2 heart sounds. No murmurs, rubs, or gallops. ABDOMEN: Soft, nontender, and nondistended with no palpable masses. Well-healed trocar sites from previous surgeries. PELVIC: Vulva and vagina had no lesions. Cuff was intact. There is tenderness on the cuff line with fullness appreciated. EXTREMITIES: Showed full range of motion. ASSESSMENT: This is a 39-year-old female, prior robotic hysterectomy with pelvic pain and dyspareunia with noted 5-cm adnexal cyst on the cuff line. PLAN: For robotic laparoscopic removal of the adnexal cyst, possible need for oophorectomy or bilateral salpingo-oophorectomy. In that case, the patient is aware she will need hormone replacement therapy and would be given estrogen therapy for surgical menopause. Risks and benefits of procedure have been discussed in detail, set for surgery on 05/13. Job ID: [id number]
[2020-05-10 09:59] VITALS: BMI 39.1
[2020-05-13] MEDS ORDERED: Gabapentin 300 MG CAP ONE (09:10)
[2020-05-13] MEDS ORDERED: Famotidine/PF 20 mg/2ml Vial ONE (09:10)
[2020-05-13] MEDS ORDERED: CeleCOXIB 100 MG CAP ONE ×2 (09:10→09:16)
[2020-05-13] MEDS ORDERED: diphenhydrAMINE 50 MG/ML VIAL ONE (09:48)
[2020-05-13] MEDS ORDERED: Dexamethasone 20 MG/5 ML VIAL ONE (09:48)
[2020-05-13] MEDS ORDERED: Metoclopramide HCl 10 MG/2 ML VIAL ONE (09:48)
[2020-05-13] MEDS ORDERED: PHENYLEPHRINE-NS 100 MCG/ML 10 ML SYRINGE ONE (09:48)
[2020-05-13] MEDS ORDERED: PROPOFOL 200 MG/20 ML VIAL ONE (09:48)
[2020-05-13] MEDS ORDERED: Rocuronium Bromide 10 MG/ML (10ML VIAL) ONE (09:48)
[2020-05-13] MEDS ORDERED: Ondansetron PF 4 MG/2 ML Vial ONE (09:48)
[2020-05-13] MEDS ORDERED: Lidocaine 1% PF 5 ML VIAL ONE (09:48)
[2020-05-13] MEDS ORDERED: Fentanyl 100 MCG/2 ML VIAL ONE ×2 (11:22→14:05)
[2020-05-13] MEDS ORDERED: SUGAMMADEX SODIUM 200 MG/2 ML VIAL ONE (11:22)
[2020-05-13] MEDS ORDERED: Lidocaine 1% w/Epinephrine 1:100K 20 ML VIAL ONE (11:23)
[2020-05-13] MEDS ORDERED: Bupivacaine PF 0.5% 30 ML VIAL ONE (11:23)
[2020-05-13] MEDS ORDERED: Ketorolac Tromethamine 30 MG/ML VIAL IVP PRN (13:25)
[2020-05-13] MEDS ORDERED: Promethazine HCl 25 MG/ML VIAL IM PRN (13:25)
[2020-05-13] MEDS ORDERED: Promethazine HCl 25 MG/ML VIAL SLOW IVP PRN (13:25)
[2020-05-13] MEDS ORDERED: Meperidine HCl/PF 25 MG/ML VIAL SLOW IVP PRN (13:25)
[2020-05-13] MEDS ORDERED: Ondansetron HCl/PF 4 MG/2 ML Vial IVP PRN (13:25)
[2020-05-13] MEDS ORDERED: Promethazine HCl 25 MG/ML VIAL ONE (14:04)
[2020-05-13] MEDS ORDERED: HYDROcodone/Acetaminophen 5/325 mg Tablet ONE (15:59)
--- NOTE | 2020-05-13 19:31 | OP ---
DATE OF PROCEDURE: 05/13/2020 PREOPERATIVE DIAGNOSES: 1. Chronic pelvic pain. 2. Dyspareunia with 5-cm adnexal cyst seen on ultrasound. 3. Prior robotic hysterectomy. POSTOPERATIVE DIAGNOSES: 1. Chronic pelvic pain. 2. Dyspareunia with 5-cm adnexal cyst seen on ultrasound. 3. Prior robotic hysterectomy. 4. Pelvic adhesive disease. PROCEDURES PERFORMED: Robotic diagnostic laparoscopy with lysis of adhesions and removal of adnexal cyst wall. ASSISTANCE SURGEON: Citlali Hartmann PA-C ANESTHESIA: General endotracheal. ESTIMATED BLOOD LOSS: Less than 10 mL. COMPLICATIONS: None. COUNTS: Correct x2. FINDINGS: 1. The patient is status post hysterectomy. She had pelvic adhesions, closing off the posterior cul-de-sac with a combination of small intestine and colon with attachment to bilateral adnexal structures. 2. There was an approximately 5-to 6-cm vaginal cuff cystic mass that was excised with draining serous fluid, most likely consistent with postinflammatory changes. 3. The ovarian cortex of each ovary was normal in appearance. There was a hemorrhagic cyst in the left ovary, status post excision and drainage, each fallopian tube appeared normal. 4. There is a right upper quadrant adhesion from previous cholecystectomy with open procedure after bile duct injury. DISPOSITION: Recovery room and then plan for discharge home. DESCRIPTION OF PROCEDURE: The patient previously received informed consent in regard to surgery. She was taken back to the operating room, where she was placed in the dorsal lithotomy position and prepped and draped in usual sterile fashion. A Armendariz catheter was placed and a sponge stick was placed in the vagina. Attention was then turned to the abdomen, where perspective trocar sites were infiltrated with 0.5% Marcaine with epinephrine. A 12-mm infraumbilical incision was made and the Veress needle was entered into the peritoneal cavity. The patient's pressure was noted to be less than 5 mmHg and the abdomen was insufflated to the patient's pressure of 15, approximately 5 L of carbon dioxide gas. The 12-mm trocar was then placed through the infraumbilical incision and the laparoscope was introduced through the trocar sleeve confirming proper entry. Bilateral lower quadrant 8-mm trocars were placed under laparoscopic guidance. There was some omental small bowel adhesions in the right upper quadrant from previous surgery. We did place a 5-mm trocar in the right lower quadrant away from the adhesions, but then there was somewhat limitation of its view and then the one was removed and then we placed the human resource assistant port in the left upper quadrant region. We then docked the robot in usual fashion. I broke, scrub, and then carried out the surgery from the operative console while my assistants remained at the bedside. A bipolar fenestrated cautery along with monopolar scissors had been placed in the operative ports from the robot. After inspecting the pelvis, I isolated the right ovary and tube. It appeared normal, but it was adhesed to the small bowel and colon and this was taken down both sharply and bluntly through some of the filmy adhesions. Once this was freed up, I then continued down into the posterior cul-de-sac and meticulously dissecting the filmy adhesions in avoiding the bowel and then this got me down to the vaginal cuff site, where there was a inflammatory cyst noted and this was ruptured and clear serous fluid was drained and suctioned. I did trim out the cyst wall and we did send this for pathology. The vaginal cuff was freed at this point. Then, I worked my way back up on the left pelvic sidewall. This where we finally did encounter the left ovary and fallopian tube. The left ovary was somewhat enlarged and had a hemorrhagic cyst that was noted and this was opened, and drained and the opening sites of the cyst on the cortex of the ovary were made hemostatic with bipolar fenestrated cautery. I continued to dissect the ovary away from the colon and free it more from the pelvic sidewall, making it less adherent to these areas. Bipolar fenestrated cautery on the ovary was utilized for hemostasis. Once we had freed up the adnexal structures from the colon and the posterior cul-de-sac was freed. I used Tisseel over the inflammatory regions and oozing to obtain hemostasis after suction had been carried out. Once this had been completed, we then undocked the robot. Trocar sleeves were removed and the trocar sites were closed along with 0 Vicryl and then 4-0 Monocryl in subcuticular with Dermabond. Sponge stick was removed. The patient was awakened from anesthesia and transferred to recovery room in stable condition. Job ID: [id number]
== END 2020-05-13 16:42 | disposition home or self-care (01) ==
LOC: SDC 08:27
PROVIDERS: ATTEND Obstetrics & Gynecology
PROC: 0UBG8ZZ Excision of Vagina, Via Natural or Artificial Opening Endoscopic (ICD-10-PCS; principal; 2020-05-13)
DX: N89.8 Other specified noninflammatory disorders of vagina (principal); N70.11 Chronic salpingitis; K21.9 Gastro-esophageal reflux disease without esophagitis; Z88.0 Allergy status to penicillin
CPT/HCPCS: 86850; 86900; 86901; 86922; 88305; J0690; J1100; J1200; J2405; J2550; J2704; J2765; J3010; S0020; S0028

== ENCOUNTER 2021-01-23 07:57 | Outpatient (CLI) | payer BC ==
[2021-01-23 10:07] LABS: Hemoglobin 10.3 g/dL (12.0-15.5); Mean Corpuscular HGB CONC 34.7 g/dL (32.0-36.0); Mean Corpuscular Hemoglobin 27.2 pg (27.0-33.0); Mean Corpuscular Volume 78.6 fl (81.6-98.3); Platelet Count 171 10x3/uL (150-450); RBC Distribution Width 20.3 % (11.5-14.5); Red Blood Cell (RBC) Count 3.78 10x6/uL (3.90-5.03); White Blood Cell (WBC) Count 9.1 10x3/uL (3.5-10.5)
[2021-01-23 10:09] LABS: BHCG - Serum Negative (NEGATIVE); Pregs Control Background? CLEAR/WHITE (CLR/WHITE); Pregs Control Bar Appear? YES (CONTROL BAR)
== END 2021-01-23 07:58 | disposition home or self-care (01) ==
LOC: LABBT 07:57
PROVIDERS: ATTEND Obstetrics & Gynecology
DX: Z01.812 Encounter for preprocedural laboratory examination (principal); R10.2 Pelvic and perineal pain; G89.29 Other chronic pain
CPT/HCPCS: 84703; 85027; 86850; 86900; 86901; 86922

== ENCOUNTER 2021-01-28 07:54 | Day surgery (SDC) | payer BC ==
[2021-01-23 10:07] LABS: Hemoglobin 10.3 g/dL (12.0-15.5); Mean Corpuscular HGB CONC 34.7 g/dL (32.0-36.0); Mean Corpuscular Hemoglobin 27.2 pg (27.0-33.0); Mean Corpuscular Volume 78.6 fl (81.6-98.3); Platelet Count 171 10x3/uL (150-450); RBC Distribution Width 20.3 % (11.5-14.5); Red Blood Cell (RBC) Count 3.78 10x6/uL (3.90-5.03); White Blood Cell (WBC) Count 9.1 10x3/uL (3.5-10.5)
[2021-01-23 10:09] LABS: BHCG - Serum Negative (NEGATIVE); Pregs Control Background? CLEAR/WHITE (CLR/WHITE); Pregs Control Bar Appear? YES (CONTROL BAR)
[2021-01-27 08:57] VITALS: BMI 39.1
[2021-01-28] MEDS ORDERED: Famotidine/PF 20 mg/2ml Vial ONE (08:23)
[2021-01-28] MEDS ORDERED: CeleCOXIB 100 MG CAP ONE (08:23)
[2021-01-28] MEDS ORDERED: Gabapentin 300 MG CAP ONE (08:23)
[2021-01-28] MEDS ORDERED: Clindamycin/D5W 600 mg/50 ml Premix Bag ONE (11:38)
[2021-01-28] MEDS ORDERED: Levofloxacin 500 mg/D5W 100 ml Premix Bag ONE (11:38)
[2021-01-28] MEDS ORDERED: SUGAMMADEX SODIUM 200 MG/2 ML VIAL ONE (11:45)
[2021-01-28] MEDS ORDERED: Fentanyl 250 MCG/5 ML VIAL ONE (11:45)
[2021-01-28] MEDS ORDERED: PROPOFOL 200 MG/20 ML VIAL ONE (12:09)
[2021-01-28] MEDS ORDERED: Esmolol 100 MG/10 ML VIAL ONE (12:09)
[2021-01-28] MEDS ORDERED: Ketorolac Tromethamine 30 MG/ML VIAL ONE (12:09)
[2021-01-28] MEDS ORDERED: Ondansetron PF 4 MG/2 ML Vial ONE ×2 (12:09→15:13)
[2021-01-28] MEDS ORDERED: Glycopyrrolate 0.2 MG/ML 5 ML SYRINGE ONE (12:09)
[2021-01-28] MEDS ORDERED: Dexamethasone 20 MG/5 ML VIAL ONE (12:09)
[2021-01-28] MEDS ORDERED: Lidocaine 1% PF 5 ML VIAL ONE (12:09)
[2021-01-28] MEDS ORDERED: Rocuronium Bromide 10 MG/ML (10ML VIAL) ONE (12:09)
[2021-01-28] MEDS ORDERED: Bupivacaine 0.25% HCL 30 ML VIAL ONE (12:10)
[2021-01-28] MEDS ORDERED: Lidocaine 1% w/Epinephrine 1:100K 20 ML VIAL ONE (12:10)
[2021-01-28] MEDS ORDERED: Fentanyl 100 MCG/2 ML VIAL ONE (15:06)
== END 2021-01-28 17:10 | disposition home or self-care (01) ==
LOC: SDC 07:54
PROVIDERS: ATTEND Obstetrics & Gynecology
PROC: 0UT74ZZ Resection of Bilateral Fallopian Tubes, Percutaneous Endoscopic Approach (ICD-10-PCS; principal; 2021-01-28)
PROC: 0UT24ZZ Resection of Bilateral Ovaries, Percutaneous Endoscopic Approach (ICD-10-PCS; principal; 2021-01-28)
DX: N73.6 Female pelvic peritoneal adhesions (postinfective) (principal); N94.89 Other specified conditions associated with female genital organs and menstrual cycle; K21.9 Gastro-esophageal reflux disease without esophagitis; Z79.899 Other long term (current) drug therapy; Z88.0 Allergy status to penicillin
CPT/HCPCS: 36415; 84703; 85027; 86850; 86900; 86901; 86922; 88305; J1100; J1885; J1956; J2405; J2704; J3010; J3490; S0020; S0028

== ENCOUNTER 2022-06-10 15:39 | Inpatient (IN) | payer BC, OTHER ==
[~2022-06-10 15:39] MED LIST changes: -Glycopyrrolate 0.2 MG/ML 5 ML SYRINGE ONE; -ISOVUE-370 76%-LOCM 1 ML ONE; -Iopamidol 370 76% 50 ML VIAL FS ONE; +Iopamidol-370 76% 500 ML 1 ML ONE; -Ketorolac Tromethamine 30 MG/ML VIAL ONE; -Lidocaine 1% PF 5 ML VIAL ONE; -Ondansetron HCl/PF 4 MG/2 ML Vial ONE; -PROPOFOL 200 MG/20 ML VIAL ONE; -Succinylcholine Chloride 20 MG/ML 10 ml SYRINGE FS ONE
[2022-06-10] MEDS ORDERED: Morphine 4 MG/ML VIAL ONE ×2 (16:16→18:14)
[2022-06-10] MEDS ORDERED: Ondansetron PF 4 MG/2 ML Vial ONE (16:16)
[2022-06-10 17:02] LABS: #Eosinphils 0.1 thou/uL (0.0-0.7); #Lymphocytes 1.7 thou/uL (1.20-3.40); #Monocytes 0.5 thou/uL (0.11-0.59); #Neutrophils 8.1 thou/uL (1.40-6.50); %Basophils 0.2 % (0.0-1.0); %Eosinophils 0.6 % (0.0-10.0); %Lymphocytes 16.3 % (21.0-51.0); %Monocytes 5.1 % (0.0-10.0); %Neutrophils 77.7 % (42.0-75.0); Hemoglobin 8.8 g/dL (12.0-16.0); Mean Corpuscular HGB CONC 34.3 g/dL (32.0-36.0); Mean Corpuscular Hemoglobin 25.5 pg (27.0-31.0); Mean Corpuscular Volume 74.2 fl (78.0-98.0); Mean Platelet Volume 10.1 fL (7.4-10.4); Platelet Count 169 thou/uL (130-400); RBC Distribution Width 22.7 % (11.5-14.5); Red Blood Cell (RBC) Count 3.47 mill/uL (4.20-5.40); White Blood Cell (WBC) Count 10.5 thou/uL (4.8-10.8)
[2022-06-10 17:14] LABS: Anisocytosis MODERATE=16-30 cells (100X) (0-5/hpf); MDiff Complete? YES; Microcytosis SLIGHT = 6-15 cells (100X) (0-5/hpf); Ovalocytes SLIGHT = 2-5 cells (100X) (0-1/hpf); Platelet Morphology Comment Appears Adequate; Polychromasia SLIGHT = 2-3 cells (100X) (0-2/hpf); Target Cells SLIGHT = 2-5 cells (100X) (0-1/hpf); Tear Drops SLIGHT = 2-5 cells (100X) (0-1/hpf)
[2022-06-10 17:25] LABS: ALT (SGPT) 18 U/L (8-55); AST (SGOT) 15 U/L (5-34); Alkaline Phosphatase 50 U/L (40-110); Anion Gap 12 mmol/L (10-20); BUN (Urea Nitrogen) 8 mg/dL (7.0-18.7); Bilirubin, Total 1.7 mg/dL (0.2-1.2); CK (CPK) 38 U/L (29-168); Calc. Creatinine Clearance 0 mL/min (70-130); Calcium 9.1 mg/dL (7.8-10.44); Carbon Dioxide 28 mmol/L (22-29); Chloride 105 mmol/L (98-107); Estimated GFR 92; Globulin 2.8 g/dL (2.4-3.5); Glucose 81 mg/dL (70-105); Lipase 30 U/L (8-78); Potassium 3.6 mmol/L (3.5-5.1); Protein, Total 6.8 g/dL (6.0-8.3); Sodium 141 mmol/L (136-145)
[2022-06-10] MEDS ORDERED: metroNIDAZOLE 500 MG/100 ML BAG ONE (18:15)
[2022-06-10 19:20] LABS: Iron 40 ug/dL (50-170); Iron Binding Capacity, Total 204 mcg/dL (265-497)
[2022-06-10 19:32] LABS: Bilirubin Negative (Negative); Blood, Urine Negative (Negative); Clarity Clear (Clear); Glucose, Urine (Dipstick) Normal (Negative); Ketone, Urine Negative (Negative); Leukocyte Negative Leu/uL (Negative); Nitrite Negative (Negative); Protein, Urine (Dipstick) Negative (Neg-Trace); Urobilinogen Normal mg/dL (Less than 2)
[2022-06-10 20:38] VITALS: BMI 40.6
[2022-06-10] MEDS: metroNIDAZOLE 500 MG in Premix Bag 1 BAG IVPB SCH (21:42)
[2022-06-10] MEDS: Famotidine 20 MG TAB PO SCH (21:42)
[2022-06-10] MEDS: HYDROcodone/Acetaminophen 5/325 mg Tablet PO PRN (21:47)
[2022-06-11] MEDS: Acetaminophen 325 MG TAB PO PRN ×3 (00:09→16:14)
[2022-06-11] MEDS: metroNIDAZOLE 500 MG in Premix Bag 1 BAG IVPB SCH ×3 (05:01→21:00)
[2022-06-11 07:00] LABS: ALT (SGPT) 23 U/L (8-55); AST (SGOT) 21 U/L (5-34); Albumin 3.6 g/dL (3.5-5.0); Alkaline Phosphatase 52 U/L (40-110); Anion Gap 10 mmol/L (10-20); BUN (Urea Nitrogen) 7 mg/dL (7.0-18.7); Bilirubin, Total 2.3 mg/dL (0.2-1.2); Calc. Creatinine Clearance 170 mL/min (70-130); Calcium 8.7 mg/dL (7.8-10.44); Carbon Dioxide 26 mmol/L (22-29); Chloride 105 mmol/L (98-107); Cholesterol 91 mg/dl (< 200 Desired); Estimated GFR 94; Globulin 2.4 g/dL (2.4-3.5); Glucose 83 mg/dL (70-105); HDL Cholesterol 30 mg/dL (>60 Neg Risk); LDL Cholesterol, Calculated 48 mg/dL; Potassium 3.6 mmol/L (3.5-5.1); Sodium 137 mmol/L (136-145); Triglycerides 65 mg/dL (Less than 150)
[2022-06-11 07:19] LABS: #Eosinphils 0.1 thou/uL (0.0-0.7); #Lymphocytes 1.2 thou/uL (1.20-3.40); #Monocytes 0.4 thou/uL (0.11-0.59); #Neutrophils 4.6 thou/uL (1.40-6.50); %Basophils 0.3 % (0.0-1.0); %Eosinophils 1.2 % (0.0-10.0); %Lymphocytes 19.6 % (21.0-51.0); %Monocytes 6.6 % (0.0-10.0); %Neutrophils 72.3 % (42.0-75.0); Hemoglobin 7.3 g/dL (12.0-16.0); Hypochromia SLIGHT = 6-15 cells (100X) (0-5/hpf); MDiff Complete? YES; Mean Corpuscular HGB CONC 33.8 g/dL (32.0-36.0); Mean Corpuscular Hemoglobin 25.5 pg (27.0-31.0); Mean Corpuscular Volume 75.3 fl (78.0-98.0); Mean Platelet Volume 11.6 fL (7.4-10.4); Microcytosis SLIGHT = 6-15 cells (100X) (0-5/hpf); Platelet Count 122 thou/uL (130-400); Platelet Morphology Comment Appears Decreased; Polychromasia SLIGHT = 2-3 cells (100X) (0-2/hpf); RBC Distribution Width 22.6 % (11.5-14.5); Red Blood Cell (RBC) Count 2.87 mill/uL (4.20-5.40); Schistocytes SLIGHT = 2-5 cells (100X) (0-1/hpf); Tear Drops SLIGHT = 2-5 cells (100X) (0-1/hpf); White Blood Cell (WBC) Count 6.3 thou/uL (4.8-10.8)
[2022-06-11 07:44] LABS: Ferritin 381.01 ng/mL (10-291)
[2022-06-11] MEDS: HYDROcodone/Acetaminophen 5/325 mg Tablet PO PRN ×4 (08:06→20:59)
[2022-06-11] MEDS: Famotidine 20 MG TAB PO SCH ×2 (08:07→20:59)
[2022-06-11 08:18] LABS: Hemoglobin A1c 3.6 % (4.0-6.0)
[2022-06-11 10:30] LABS: Reticulocyte Count 3.6 % (0.5-1.5)
[2022-06-11] MEDS: Morphine 4 MG/ML VIAL SLOW IVP PRN (10:42)
[2022-06-11] MEDS: Enoxaparin Sodium 40 MG/0.4 ML SYRINGE SC SCH (10:42)
[2022-06-11] MEDS: Ondansetron PF 4 MG/2 ML Vial IVP PRN (13:10)
[2022-06-11] MEDS: 1/2 NS w/KCL 20 mEq 1,000 ML IV SCH (17:24)
[2022-06-11] MEDS: Senokot S 8.6-50 MG TAB PO SCH (20:59)
[2022-06-12] MEDS: 1/2 NS w/KCL 20 mEq 1,000 ML IV SCH ×3 (00:09→15:55)
[2022-06-12] MEDS: Acetaminophen 325 MG TAB PO PRN ×2 (05:57→20:26)
[2022-06-12] MEDS: metroNIDAZOLE 500 MG in Premix Bag 1 BAG IVPB SCH ×3 (05:57→22:04)
[2022-06-12] MEDS: Morphine 4 MG/ML VIAL SLOW IVP PRN (06:30)
[2022-06-12 06:59] LABS: Reticulocyte Count 3.6 % (0.5-1.5)
[2022-06-12 07:01] LABS: #Eosinphils 0.1 thou/uL (0.0-0.7); #Lymphocytes 1.3 thou/uL (1.20-3.40); #Monocytes 0.3 thou/uL (0.11-0.59); #Neutrophils 5.5 thou/uL (1.40-6.50); %Basophils 0.2 % (0.0-1.0); %Eosinophils 1.1 % (0.0-10.0); %Monocytes 4.7 % (0.0-10.0); %Neutrophils 75.9 % (42.0-75.0); Mean Corpuscular HGB CONC 34.2 g/dL (32.0-36.0); Mean Corpuscular Hemoglobin 25.6 pg (27.0-31.0); Mean Corpuscular Volume 74.9 fl (78.0-98.0); Mean Platelet Volume 12.2 fL (7.4-10.4); Platelet Count 142 thou/uL (130-400); RBC Distribution Width 22.6 % (11.5-14.5); Red Blood Cell (RBC) Count 3.13 mill/uL (4.20-5.40); White Blood Cell (WBC) Count 7.3 thou/uL (4.8-10.8)
[2022-06-12 07:07] LABS: ALT (SGPT) 16 U/L (8-55); AST (SGOT) 12 U/L (5-34); Albumin 3.5 g/dL (3.5-5.0); Alkaline Phosphatase 47 U/L (40-110); Anion Gap 11 mmol/L (10-20); BUN (Urea Nitrogen) 7 mg/dL (7.0-18.7); Bilirubin, Total 1.5 mg/dL (0.2-1.2); Calc. Creatinine Clearance 173 mL/min (70-130); Calcium 8.7 mg/dL (7.8-10.44); Carbon Dioxide 25 mmol/L (22-29); Chloride 105 mmol/L (98-107); Estimated GFR 96; Globulin 2.4 g/dL (2.4-3.5); Glucose 90 mg/dL (70-105); Magnesium 1.8 mg/dL (1.6-2.6); Phosphorus 3.1 mg/dL (2.3-4.7); Potassium 3.6 mmol/L (3.5-5.1); Protein, Total 5.9 g/dL (6.0-8.3); Sodium 137 mmol/L (136-145)
[2022-06-12] MEDS: Famotidine 20 MG TAB PO SCH ×2 (08:33→20:26)
[2022-06-12] MEDS: Senokot S 8.6-50 MG TAB PO SCH ×2 (08:33→20:26)
[2022-06-12] MEDS: Enoxaparin Sodium 40 MG/0.4 ML SYRINGE SC SCH (08:33)
[2022-06-12] MEDS: Polyethylene Glycol 3350 17 GM Packet PO SCH (08:33)
[2022-06-12] MEDS: HYDROcodone/Acetaminophen 5/325 mg Tablet PO PRN (16:18)
[2022-06-12] MEDS: Ondansetron PF 4 MG/2 ML Vial IVP PRN (21:57)
[2022-06-13] MEDS: 1/2 NS w/KCL 20 mEq 1,000 ML IV SCH ×4 (00:08→22:51)
[2022-06-13] MEDS: metroNIDAZOLE 500 MG in Premix Bag 1 BAG IVPB SCH (05:23)
[2022-06-13] MEDS: Enoxaparin Sodium 40 MG/0.4 ML SYRINGE SC SCH (08:33)
[2022-06-13] MEDS: Polyethylene Glycol 3350 17 GM Packet PO SCH (08:33)
[2022-06-13] MEDS: Famotidine 20 MG TAB PO SCH ×2 (08:34→20:08)
[2022-06-13] MEDS: Senokot S 8.6-50 MG TAB PO SCH ×2 (08:34→20:08)
[2022-06-13] MEDS: Morphine 4 MG/ML VIAL SLOW IVP PRN (08:42)
[2022-06-13] MEDS ORDERED: ESTRADIOL TOP SCH (09:00)
[2022-06-13] MEDS ORDERED: FLU VACC QS2022-23(6MOS UP)/PF 60 MCG/0.5 ML SYRINGE IM ONE (09:00)
[2022-06-13] MEDS: HYDROcodone/Acetaminophen 5/325 mg Tablet PO PRN ×2 (15:11→20:08)
[2022-06-13] MEDS: Meropenem 1 GM in Sodium Chloride 0.9% 100 ML IVPB SCH ×2 (15:11→21:30)
[2022-06-13] MEDS: Ondansetron ODT 4 MG TAB PO PRN (20:07)
[2022-06-14] MEDS: Meropenem 1 GM in Sodium Chloride 0.9% 100 ML IVPB SCH ×3 (05:01→21:55)
[2022-06-14] MEDS: Senokot S 8.6-50 MG TAB PO SCH ×2 (08:28→20:42)
[2022-06-14] MEDS: Enoxaparin Sodium 40 MG/0.4 ML SYRINGE SC SCH (08:28)
[2022-06-14] MEDS: Polyethylene Glycol 3350 17 GM Packet PO SCH (08:28)
[2022-06-14] MEDS: Famotidine 20 MG TAB PO SCH ×2 (08:28→20:42)
[2022-06-14] MEDS: 1/2 NS w/KCL 20 mEq 1,000 ML IV SCH ×3 (08:28→21:57)
[2022-06-14] MEDS: HYDROcodone/Acetaminophen 5/325 mg Tablet PO PRN ×3 (08:37→20:42)
[2022-06-14] MEDS: Ondansetron ODT 4 MG TAB PO PRN ×2 (09:25→20:43)
[2022-06-15] MEDS: HYDROcodone/Acetaminophen 5/325 mg Tablet PO PRN ×3 (05:19→21:15)
[2022-06-15] MEDS: Ondansetron ODT 4 MG TAB PO PRN ×2 (05:21→21:14)
[2022-06-15] MEDS: Meropenem 1 GM in Sodium Chloride 0.9% 100 ML IVPB SCH ×3 (05:21→21:16)
[2022-06-15] MEDS: 1/2 NS w/KCL 20 mEq 1,000 ML IV SCH ×3 (06:09→21:16)
[2022-06-15 07:01] LABS: #Eosinphils 0.1 thou/uL (0.0-0.7); #Lymphocytes 1.4 thou/uL (1.20-3.40); #Monocytes 0.3 thou/uL (0.11-0.59); #Neutrophils 4.1 thou/uL (1.40-6.50); %Basophils 0.1 % (0.0-1.0); %Eosinophils 1.7 % (0.0-10.0); %Lymphocytes 23.3 % (21.0-51.0); %Monocytes 5.4 % (0.0-10.0); %Neutrophils 69.4 % (42.0-75.0); Mean Corpuscular HGB CONC 32.9 g/dL (32.0-36.0); Mean Corpuscular Hemoglobin 24.4 pg (27.0-31.0); Mean Platelet Volume 9.8 fL (7.4-10.4); Platelet Count 142 thou/uL (130-400); RBC Distribution Width 23.4 % (11.5-14.5); Red Blood Cell (RBC) Count 2.88 mill/uL (4.20-5.40); White Blood Cell (WBC) Count 5.9 thou/uL (4.8-10.8)
[2022-06-15 07:08] LABS: Anion Gap 10 mmol/L (10-20); BUN (Urea Nitrogen) 4 mg/dL (7.0-18.7); Calc. Creatinine Clearance 192 mL/min (70-130); Calcium 8.4 mg/dL (7.8-10.44); Carbon Dioxide 24 mmol/L (22-29); Chloride 106 mmol/L (98-107); Estimated GFR 109; Glucose 86 mg/dL (70-105); Potassium 3.9 mmol/L (3.5-5.1); Sodium 136 mmol/L (136-145)
[2022-06-15] MEDS: Polyethylene Glycol 3350 17 GM Packet PO SCH (08:24)
[2022-06-15] MEDS: Senokot S 8.6-50 MG TAB PO SCH ×2 (08:24→21:15)
[2022-06-15] MEDS: Famotidine 20 MG TAB PO SCH ×2 (08:24→21:14)
[2022-06-15] MEDS: Enoxaparin Sodium 40 MG/0.4 ML SYRINGE SC SCH (08:24)
[2022-06-15] MEDS ORDERED: Iopamidol-370 76% 500 ML 1 ML ONE (14:19)
[2022-06-16] MEDS: Meropenem 1 GM in Sodium Chloride 0.9% 100 ML IVPB SCH (05:13)
[2022-06-16] MEDS: Ondansetron ODT 4 MG TAB PO PRN (05:13)
[2022-06-16] MEDS: HYDROcodone/Acetaminophen 5/325 mg Tablet PO PRN (05:13)
[2022-06-16] MEDS: 1/2 NS w/KCL 20 mEq 1,000 ML IV SCH ×2 (05:22→12:01)
[2022-06-16] MEDS: Famotidine 20 MG TAB PO SCH (08:42)
[2022-06-16] MEDS: Senokot S 8.6-50 MG TAB PO SCH (08:42)
[2022-06-16] MEDS: Enoxaparin Sodium 40 MG/0.4 ML SYRINGE SC SCH (08:43)
[2022-06-16] MEDS: Polyethylene Glycol 3350 17 GM Packet PO SCH (08:44)
[2022-06-16 14:50] VITALS: BP 122/69; TEMP 98.4
== END 2022-06-16 14:32 | disposition home or self-care (01) | DRG 391 ==
LOC: ERS 15:39 → T4-A 18:10
PROVIDERS: ADMIT Internal Medicine; ATTEND Internal Medicine
DX: K57.20 Diverticulitis of large intestine with perforation and abscess without bleeding (principal); K65.1 Peritoneal abscess; Z68.41 Body mass index [BMI] 40.0-44.9, adult; Z20.822 Contact with and (suspected) exposure to COVID-19; K21.9 Gastro-esophageal reflux disease without esophagitis; D57.20 Sickle-cell/Hb-C disease without crisis; K76.0 Fatty (change of) liver, not elsewhere classified; R16.1 Splenomegaly, not elsewhere classified; E66.01 Morbid (severe) obesity due to excess calories; E86.0 Dehydration; D69.6 Thrombocytopenia, unspecified; Z88.0 Allergy status to penicillin; Z79.899 Other long term (current) drug therapy; Z90.49 Acquired absence of other specified parts of digestive tract; Z90.710 Acquired absence of both cervix and uterus
CPT/HCPCS: 36415; 74177; 80048; 80053; 80061; 81003; 82550; 82607; 82728; 83010; 83036; 83540; 83550; 83615; 83690; 83735; 83880; 84100; 85025; 85046; 93005; 96361; 96365; 96367; 96375; 96376; J1650; J1956; J2185; J2270; J2405; J3480; J3490; Q0162; Q9967; U0003; U0005

== ENCOUNTER 2022-08-26 08:01 | Outpatient (CLI) | payer BC, OTHER ==
[2022-08-26] MEDS ORDERED: Iopamidol 370 76% 100 ML VIAL ONE (08:41)
== END 2022-08-26 08:02 | disposition home or self-care (01) ==
LOC: BICCT 08:01
PROVIDERS: ATTEND Surgery
DX: K57.32 Diverticulitis of large intestine without perforation or abscess without bleeding (principal)
CPT/HCPCS: 74177